=== PATIENT | female | born 1960 | race Caucasian/White ===

== ENCOUNTER 2017-10-18 19:43 | Inpatient (IN) | payer OTHER ==
[~2017-10-18] VITALS: Ht 165.1 cm; Wt 77.6 kg
--- NOTE | 2017-10-18 20:01 | ED DYSPNEA/ASTHMA COMPLAINT ---
History of Present Illness General Chief Complaint: Dyspnea (COPD, CHF, Other) Stated Complaint: BIBA, DIFF BREATHING Source: patient, EMS Exam Limitations: no limitations Vital Signs & Intake/Output Vital Signs & Intake/Output Vital Signs Date Time Temp Pulse Resp B/P B/P Pulse O2 O2 Flow FiO2 Mean Ox Delivery Rate 10/19 0620 50 10/19 0338 50 10/19 0334 65 10/19 0040 65 10/19 0037 75 10/189 72 168/84 10/19 2243 97.1 87 20 196/100 95 Ventilator 10/182 75 10/180 65 102/60 10/180 66 74/56 10/19 2051 70 138/86 10/18 2042 110 144/96 10/18 2038 100 18 144/96 95 Ventilator 75% 10/18 2032 Ventilator 10/18 2020 118 222/146 10/19 2007 122 262/176 10/18 1950 60 ED Intake and Output 10/19 0000 10/18 1200 Intake Total 0 Output Total Balance 0 Intake, Oral 0 Patient 170 lb Weight Weight Reported by Patient Measurement Method Allergies Coded Allergies: amoxicillin (Intermediate, ITCHY, SOB 10/18/17) ciprofloxacin (From CIPRO) (Intermediate, ITCHY, SOB 10/18/17) Penicillins (ITCHY, SOB 10/18/17) Reconcile Medications Ibuprofen (Advil) (Unknown Strength) CAPSULE (Unknown Dose) PO PRN PAIN/ INFLAMMATION (Reported) Triage Nurses Notes Reviewed? yes HPI: Patient presents for evaluation of severe respiratory distress. The patient is unable to provide history given her extreme breathlessness. Past History Travel History Traveled to [place] past 21 day No Medical History Any Pertinent Medical History? see below for history Surgical History Surgical History: unobtainable Family History Hx Contributory? No (UNOBTAINABLE) Review of Systems Review of Systems Constitutional: Reports: no symptoms. EENTM: Reports: no symptoms. Respiratory: Reports: see HPI. Cardiovascular: Reports: no symptoms. GI: Reports: no symptoms. Genitourinary: Reports: no symptoms. Musculoskeletal: Reports: no symptoms. Skin: Reports: no symptoms. Neurological/Psychological: Reports: no symptoms. Hematologic/Endocrine: Reports: no symptoms. Immunologic/Allergic: Reports: no symptoms. All Other Systems: Reviewed and Negative Physical Exam Physical Exam Respiratory: SEE BELOW Comments: Gen.: Well-nourished, well-developed, severe respiratory distress, anxious, speaking in one-word answers Head: Normocephalic, atraumatic. Eyes: Normal inspection bilaterally Ears: Normal inspection bilaterally Nose: Normal inspection Throat/mouth : Moist mucosa Neck: Supple, full range of motion, no goiter Heart: Rapid Regular rate and rhythm, no murmurs rubs or gallops Lungs: Diffuse rales and rhonchi Chest: Nontender Back: Normal range of motion Abdomen: Soft, nontender, nondistended, normal bowel sounds Extremities: Normal range of motion grossly, equal radial pulses, no cyanosis clubbing or edema Neurologic: Cranial nerves grossly intact, speech is clear Skin: warm and dry Psychiatric: Anxious, cooperative, no apparent delusions or hallucinations Core Measures ACS in differential dx? Yes CVA/TIA Diagnosis No Sepsis Present: No Sepsis Focused Exam Completed? No Progress Differential Diagnosis: AMI, bronchitis, CHF, COPD, pneumonia, unstable angina Plan of Care: Orders Procedure Date/time Status Nothing by Mouth 10/19 B Active XRY-PORTABLE CHEST XRAY 10/19 0500 Active THYROID STIMULATING HORMONE 10/19 0500 Active T3 UPTAKE (THYROXINE BIND CAP) 10/19 0500 Active LIPID PANEL 10/19 0500 Active ICU LAB BUNDLE 10/19 0500 Active FREE T4 10/19 0500 Active CORTISOL AM 10/19 0500 Active CBC WITHOUT DIFFERENTIAL 10/19 0500 Complete THYROID ANTIBODY PANEL 10/19 0500 Active TROPONIN LEVEL 10/19 0400 Complete PARTIAL THROMBOPLASTIN TIME 10/19 0400 Complete PROTHROMBIN TIME 10/19 0400 Complete EKG 10/19 0400 Active VENTILATOR PARAMETERS 10/19 0337 Complete VENTILATOR PARAMETERS 10/19 0040 Complete VRE ACTIVE SURVIELLANCE 10/19 0010 Active ACTIVE SURVEILLANCE NARES 10/19 0010 Active Lab Add-on Test 10/19 UNK Active Restraint- Medical 10/19 UNK Complete Restraint- Medical 10/19 UNK Active Hemoccult 10/19 UNK Active FingerStick- Glucose 10/19 UNK Complete FingerStick- Glucose 10/19 UNK Active TROPONIN LEVEL 10/18 2355 Complete EKG 10/18 2355 Active Weight 10/18 224 Active Turn and Reposition 10/18 2244 Active Teach/Educate 10/18 2244 Active Skin Integrity Protocol 10/18 2244 Active Skin/Pressure Ulcer Assess (Sk 10/18 2244 Active Precautions 10/18 2244 Active Pain Treatment and Response 10/18 2244 Active Nutritional Intake, Monitor 10/18 2244 Active Isolation 10/18 2244 Active Patient Care Conference 10/18 2244 Active Activity/Ambulation 10/18 2244 Active Saline Lock 10/18 2217 Active Pathway - chart 10/18 2217 Active House Staff 10/18 2217 Active CULTURE,URINE 10/18 2217 Active BLOOD CULTURE 10/18 2217 Active URINALYSIS 10/18 2217 Complete LACTIC ACID 10/18 2217 Complete Code Status 10/18 2217 Active TYPE & SCREEN (NOT X-MATCH) 10/18 2217 Complete Intake & Output 10/18 2212 Active VENTILATOR PARAMETERS 10/18 2199 Complete VENTILATOR PARAMETERS 10/19 2127 Complete Patient Data 10/18 2109 Active Admit to inpatient 10/18 2104 Active EKG 10/18 2044 Active THYROID STIMULATING HORMONE 10/19 2035 Active PARTIAL THROMBOPLASTIN TIME 10/19 2035 Complete PROTHROMBIN TIME 10/18 203 Complete PHOSPHORUS 10/19 2035 Active GLYCOSYLATED HGB 10/19 2035 Active FREE T4 10/18 203 Active CORTISOL PM 10/19 2035 Active VENTILATOR PARAMETERS 10/19 2031 Complete EKG 10/18 2006 Active ARTERIAL BLOOD GAS (GEN) 10/18 2000 Complete Telemetry/Summer Associate 10/18 2000 Active URINE DRUG SCREEN FOR ER ONLY 10/18 2000 Complete TROPONIN LEVEL 10/18 2000 Active MAGNESIUM 10/18 2000 Active ETHANOL 10/18 2000 Active COMPREHENSIVE METABOLIC PANEL 10/18 2000 Active CBC WITHOUT DIFFERENTIAL 10/18 2000 Complete EKG 10/18 194 Active Lab Add-on Test 10/18 UNK Active VTE Mechanical Prophylaxis 10/18 UNK Active Vital Signs 10/18 UNK Active Intake & Output 10/18 UNK Active ECHOCARDIOGRAM 10/18 UNK Active Current Medications Sig/Ye Start time Last Medication Dose Stop Time Status Admin Fentanyl Citrate 1,000 MCG Q24H 10/19 199 AC 10/19 (Fentanyl Drip) 0259 Dextrose/Water 250 ML (Dextrose 5%) Pantoprazole Sodium 40 MG DAILY 10/19 0200 AC 10/19 (Protonix) 0238 Insulin Human Regular 0 Q6 10/19 0045 AC (NovoLIN R) Sodium Chloride 1,000 ML BOLUS ONE 10/18 2330 CAN (Normal Saline 0.9%) 10/19 0029 Acetaminophen 1,000 MG Q8P PRN 10/18 2214 AC (Ofirmev) Morphine Sulfate 2 MG Q4P PRN 10/18 2214 AC (MORPHINE SULFATE) Heparin Sodium 25,000 UNIT Q24H 10/18 2129 AC 10/18 (Porcine) 2199 (Heparin) Sodium Chloride 500 ML Labetalol HCl 20 MG ONCE ONE 10/18 2029 CAN (Trandate) 10/18 2030 Laboratory Tests 10/19/175: Troponin I 0.46 *H, PT 12.6 H, INR 1.15 10/19/17 0415: Anion Gap 11, Estimated GFR 51 L, Glucose 78, Calcium 8.5, Phosphorus 4.2, Magnesium 1.7, Total Bilirubin 1.0, AST 16, ALT 31, Albumin 3.3 L, Triglycerides 181 H, Cholesterol 249 H, LDL Cholesterol, Calc 174 H, HDL Cholesterol 39 L, Cholesterol/HDL Ratio 6 H, TSH 90.600 H, Free T4 0.92, Thyroxine Binding Indx 38.4, Cortisol AM Sample Pending, APTT 42 H, CBC w Diff MAN DIFF ORDERED, RBC 4.81, MCV 81.8, MCH 26.5 L, MCHC 32.4 L, RDW 17.8 H, MPV 9.4, Gran % 94.0 H, Lymphocytes % 2.9 L, Monocytes % 2.9, Eosinophils % 0.1, Basophils % 0.1, Absolute Granulocytes 12.7 H, Segmented Neutrophils 93 H , Band Neutrophils 3, Absolute Lymphocytes 0.4 L, Lymphocytes 1 L, Monocytes 3 , Absolute Monocytes 0.4, Absolute Eosinophils 0, Absolute Basophils 0, Platelet Estimate ADEQUATE, Polychromasia 1+, Hypochromic-Microcytic 1+, Poikilocytosis 1 +, Ovalocytes 1+, Thyroglobulin Antibody Pending, Thyroid Peroxidase Ab Pending, Fld Total RBCs Counted 100 10/19/17 0035: Troponin I 0.51 *H 10/19/17 0035: Lactic Acid 1.5 10/19/17 0030: Free T4 Cancelled 10/19/17 0000: Urinalysis LIGHT H, Urine Color STRAW, Urine Clarity CLEAR, Urine pH 6.0, Ur Specific [place] 1.010, Urine Protein 30 H, Urine Ketones NEG, Urine Nitrite NEG, Urine Bilirubin NEG, Urine Urobilinogen 0.2, Ur Leukocyte Esterase TRACE H , Ur Microscopic SEDIMENT EXAMINED, Urine RBC 1-3, Urine WBC 5-10 H, Ur Epithelial Cells FEW, Urine Bacteria MANY H, Hyaline Casts RARE H, Urine Mucus FEW, Urine Hemoglobin TRACE-INTACT, Urine Glucose NEG 10/18/170: Urine Opiates Screen < 100, Methadone Screen < 40, Barbiturate Screen < 60, Ur Phencyclidine Scrn < 6.00, Amphetamines Screen < 100, U Benzodiazepines Scrn < 85, Urine Cocaine Screen < 50, Urine Cannabis Screen < 5.00 10/18/17 2100: pH 7.35, pCO2 37, pO2 90, HCO3 20 L, ABG O2 Sat (Measured) 96.0, Carboxyhemoglobin 3.0, O2 Concentration % 90, Respiration Rate 18, O2 Delivery Method VENT, Vent Mode AC, Expiratory Pressure 8, Tidal Volume 550, Pressure Support 0, Phlebotomy Draw Site LEFT BRACHIAL 10/18/172035: Anion Gap 14, Estimated GFR 57 L, BUN/Creatinine Ratio 25.0, Glucose 322 H, Hemoglobin A1c Pending, Calcium 8.7, Phosphorus 6.9 H, Magnesium 1.8, Total Bilirubin 1.0, AST 26, ALT 30, Alkaline Phosphatase 95, Troponin I 0.09, Total Protein 7.3, Albumin 4.1, Globulin 3.2, Albumin/Globulin Ratio 1.3, TSH 348.000 H, Free T4 0.43 L, Cortisol PM Sample 27.2 H, PT 12.0, INR 1.10, APTT 31, CBC w Diff NO MAN DIFF REQ, RBC 5.70 H, MCV 82.4, MCH 26.4 L, MCHC 32.1 L, RDW 17.3 H, MPV 9.3, Gran % 83.7 H, Lymphocytes % 12.2 L, Monocytes % 2.3, Eosinophils % 1.3, Basophils % 0.5, Absolute Granulocytes 9.9 H, Absolute Lymphocytes 1.4, Absolute Monocytes 0.3, Absolute Eosinophils 0.2, Absolute Basophils 0.1, Serum Alcohol < 10.0 Microbiology 10/19 URINE ROUT: Urine Culture - RECD 10/19 0000 UPPER RESP: Surveillance Culture - RECD 10/19 0000 GI: Surveillance Culture - RECD 10/18 2348 BLOOD: Blood Culture - RECD 10/18 2344 BLOOD: Blood Culture - RECD Initial ED EKG: SINUS TACHYCARDIA WITH st SEGMENT ELEVATIONS IN THE ANTEROSEPTAL LEADS AND st SEGMENT DEPRESSIONS INFEROLATERALLY Repeat EKG: unchanged Rhythm Strip: normal sinus rhythm Comments: 10/18/2017 7:57:19 PM given the patient's severe respiratory distress and what appeared to be impending respiratory failure, patient was intubated with a #7 endotracheal tube after ketamine and vecuronium intravenously. Prior to intubation and during verbal consent, patient commented that she has multiple loose teeth (patient has 2 bicuspids that were severely loose and patient is able to wiggle them with her talking). I warned her of the possibility of losing teeth during an emergency intubation. 10/18/2017 8:05:54 PM patient's EKG shows ST segment elevations anteriorly with ST segment depressions inferolaterally. Given the patient's extreme clinical presentation it is difficult to interpret her EKG. She was hypoxic on presentation despite 100% nonrebreather mask. I will repeat an EKG and if her ST segments persist, I will contact interventional cardiology for cardiac catheterization. 10/18/2017 8:13:16 PM repeat EKG reveals essentially the same changes as prior EKG regional program manager cardiology paged for possible cardiac catheterization. 10/18/2017 8:24:40 PM I have sent a picture of this patient's EKG to Dr. Kulkarni and after review Dr. Kulkarni feels that the patient should be stabilized here at [facility]. He suspects that these are ischemic induced changes and would likely resolve as the patient stabilizes. 10/18/2017 8:57:40 PM repeat EKG shows improvement in the patient's ST segment elevations anteriorly and improvement of the persistence of ST segment depressions in the lateral and inferior leads. 10/18/2017 9:28:22 PM I have updated this patient's on her emergency department course. According to this patient's nurse her stool is heme negative. Departure Departure Disposition: STILL A PATIENT Condition: Stable Clinical Impression Primary Impression: Pulmonary edema Secondary Impressions: Acute respiratory failure, Cardiac ischemia Departure Forms: Customer Survey General Discharge Information Admission Note Spoke With: Shad YIP PHD,Berry Miller Documentation of Exam: Documentation of any treatments & extenuating circumstances including Concerns Regarding Discharge (functional status, medication knowledge or non-compliance, living conditions, etc.) that warrant an admission rather than observation: Patient presented in severe respiratory distress with impending respiratory failure. The patient required intubation and critical care to stabilize vital signs and overall clinical condition. She was placed on a ventilator and given aspirin, beta karen, nitroglycerin paste in order to stabilize vital signs. The patient continues to require intensive unit level care and cannot be treated as an outpatient. Her prognosis is guarded at this time. She will require a multiple day hospitalization. Critical Care Note Critical Care Note Critical Care Time: 30-74 min
[2017-10-18 20:54] LABS: ABSOLUTE BASOPHIL COUNT 0.1 /CUMM (0.0-0.2); ABSOLUTE EOSINOPHIL COUNT 0.2 /CUMM (0.0-0.7); ABSOLUTE GRANULOCYTE CT 9.9 /CUMM (1.4-6.5); ABSOLUTE LYMPH COUNT 1.4 /CUMM (1.2-3.4); ABSOLUTE MONOCYTE COUNT 0.3 /CUMM (0.10-0.60); BASOPHIL % 0.5 % (0.0-2.0); EOSINOPHIL % 1.3 % (0-5); GRANULOCYTE % 83.7 % (42.2-75.2); MEAN CORPUSCULAR HGB 26.4 PG (27.0-31.0); MEAN CORPUSCULAR HGB CONC 32.1 G/DL (33.0-37.0); MEAN CORPUSCULAR VOLUME 82.4 FL (81.0-99.0); MEAN PLATELET VOLUME 9.3 FL (7.4-10.4); PLATELET COUNT 329 /CUMM (130-400); RBC DISTRIBUTION WIDTH 17.3 % (11.5-14.5); WHITE BLOOD CELL COUNT 11.8 /CUMM (4.8-10.8)
--- NOTE | 2017-10-18 21:03 | RADIOLOGY REPORT ---
XR PORTABLE CHEST CLINICAL INFORMATION: Dyspnea status post intubation. CHF. COMPARISON: None TECHNIQUE: Portable frontal view of the chest was obtained. FINDINGS: Endotracheal tube tip is located 4.6 cm above the enda. Enteric tube courses below the diaphragm beyond the limits of this study. There is central vascular congestion with diffuse bilateral pulmonary airspace opacities and background interstitial opacities suggesting moderate to severe alveolar/interstitial pulmonary edema. Nondiagnostic assessment for pleural effusions given that the lung bases are not included on this exam. There is dense retrocardiac opacity. No pneumothorax. Cardiac silhouette is enlarged. No acute osseous findings. IMPRESSION: Endotracheal tube tip is located 4.6 cm above the edna. Enteric tube courses below the diaphragm beyond the limits of this study. Imaging findings suggest moderate to severe interstitial/alveolar pulmonary edema. Nondiagnostic assessment for pleural effusions with the lung bases not entirely included on this exam. Cardiomegaly.
[2017-10-18] MEDS ORDERED: ADVIL200 M1 PO (21:15)
--- NOTE | 2017-10-18 21:26 | History & Physical ---
General Information and HPI MD Statement: I have seen and personally examined CARON NDIAYE and documented this H&P. The patient is a 57 year old F who presented with a patient stated chief complaint of [sob]. Source of Information: family, EMS Exam Limitations: unable to give history, not alert/orientated, INTUBATED History of Present Illness: This is a 57-year-old female with a medical history of hypertension not on any prescribed medication, chronic active smoker. Presented to the emergency department via EMS with a chief complain off difficulty breathing. Most of the history was obtained from her over the phone. her stated that he received a call from his son when he was driving back from work telling him that his mother complaining cough shortness of breath, he stated that 2 minutes after that his son called him again and ask him to come faster as that what his mother requested from him due to the difficulty of breathing. The stated that when he arrived home he found his sitting on the chair in the living room and she try to catch up her breathing and she told him to contact EMS due to the severity of the symptom, after that he walk her outside as she stated that the cord fresh air help her little bit as also she felt warm. When the EMS arrived the stated that they have difficulty checking her blood pressure and when the majority first one was more than 220/100. The stated that his was complaining of sinus congestion and cough for the past couple days and she thought that she is catching up a cold. Also he report that she is taking ibuprofen 800 mg every 6 hour for a while to help her with her muscle ache and back, shoulder and neck pain. The stated that last time she was admitted to hospital was 13 YEARS ago when she underwent hysterectomy. The reported that she hadn't seen any physician for the past 5-6 years. And she was diagnosed with hypertension before that but she declined taking any medication. She is active smoker she smoke 1 &1/2 pack per day for more than 40 years. Also, he reported that she snore at night, taking multiple not during the daytime, always complaining feeling tired and weak and fatigue for the past 5-6 year. According to him she denied any chest pain, abdominal pain, hematuria, dysuria, nausea, vomiting, diarrhea, constipation, headaches, wheezing. She has a family history of her father had cardiac bypass at the age of 60 year. Also her mother had diabetes, hyperlipidemia she 36 years ago. Upon arrival to the emergency department patient was in respiratory distress and her oxygen saturation was in the low mid 80s, she was acute cardiac, tachypneic and hypertensive despite 2 Nitropaste applied via EMS also she was tachypneic due to concerning off dying. Due to that the patient was intubated in the emergency department, she received the following medication 1 mg IV Ativan, per rectum 300 mg aspirin, 40 mg of IV Lasix, 2 g of nitroglycerin-bid, 5 mg of IV metoprolol. Initial EKG shows ST segment elevations anteriorly with ST segment depressions inferolaterally. Her blood pressure dropped from 262/176 to 144/96 after these Meds. Allergies/Medications Allergies: Coded Allergies: amoxicillin (Intermediate, ITCHY, SOB 10/18/17) ciprofloxacin (From CIPRO) (Intermediate, ITCHY, SOB 10/18/17) Penicillins (ITCHY, SOB 10/18/17) Home Med list Ibuprofen (Advil) (Unknown Strength) CAPSULE (Unknown Dose) PO PRN PAIN/ INFLAMMATION (Reported) Past History Travel History Traveled to [place] past 21 day No Medical History Cardiovascular: hypertension Surgical History Surgical History: hysterectomy Past Family/Social History Family History Relations & Conditions if any MOTHER (Diabetes, hyperlipidemia,). . FATHER (CABG at age of 60 year). Psychosocial History ETOH Use: 5 Functional Ability ADLs Independent: dressing, eating, toileting, bathing. Ambulation: independent IADLs Independent: shopping, housework, finances, food prep, telephone, transportation , medication admin. Review of Systems Review of Systems Constitutional: Reports: see HPI. Cardiovascular: Reports: see HPI. Respiratory: Reports: see HPI. GI: Reports: see HPI. Genitourinary: Reports: see HPI. Exam & Diagnostic Data Last 24 Hrs of Vital Signs/I&O Vital Signs Date Time Temp Pulse Resp B/P B/P Pulse O2 O2 Flow FiO2 Mean Ox Delivery Rate 10/19 2139 65 102/60 10/18 2129 66 74/56 10/19 2051 70 138/86 10/18 2042 110 144/96 10/18 2038 100 18 144/96 95 Ventilator 75% 10/18 2032 Ventilator 10/18 2020 118 222/146 10/19 2007 122 262/176 03/15 1950 60 Physical Exam General Appearance intubated, sedated HEENT PERRLA, EOMI Neck Supple Cardiovascular Regular Rate, Normal S1, Normal S2 Lungs Normal Air Movement, decrease air entry bibasilar, diffuse crackles Abdomen Normal Bowel Sounds, Soft, No Tenderness Extremities Normal Pulses, trace edema Last 24 Hrs of Labs/Brian: Laboratory Tests 10/18/170: Urine Opiates Screen < 100, Methadone Screen < 40, Barbiturate Screen < 60, Ur Phencyclidine Scrn < 6.00, Amphetamines Screen < 100, U Benzodiazepines Scrn < 85, Urine Cocaine Screen < 50, Urine Cannabis Screen < 5.00 10/18/172099: pH 7.35, pCO2 37, pO2 90, HCO3 20 L, ABG O2 Sat (Measured) 96.0, Carboxyhemoglobin 3.0, O2 Concentration % 90, Respiration Rate 18, O2 Delivery Method VENT, Vent Mode AC, Expiratory Pressure 8, Tidal Volume 550, Pressure Support 0, Phlebotomy Draw Site LEFT BRACHIAL 10/18/172035: Anion Gap 14, Estimated GFR 57 L, BUN/Creatinine Ratio 25.0, Glucose 322 H, Hemoglobin A1c Pending, Calcium 8.7, Phosphorus 6.9 H, Magnesium 1.8, Total Bilirubin 1.0, AST 26, ALT 30, Alkaline Phosphatase 95, Troponin I 0.09, Total Protein 7.3, Albumin 4.1, Globulin 3.2, Albumin/Globulin Ratio 1.3, TSH Pending, Free T4 Pending, PT Pending, INR Pending, APTT Pending, CBC w Diff NO MAN DIFF REQ, RBC 5.70 H, MCV 82.4, MCH 26.4 L, MCHC 32.1 L, RDW 17.3 H, MPV 9.3, Gran % 83.7 H, Lymphocytes % 12.2 L, Monocytes % 2.3, Eosinophils % 1.3, Basophils % 0.5, Absolute Granulocytes 9.9 H, Absolute Lymphocytes 1.4, Absolute Monocytes 0.3, Absolute Eosinophils 0.2, Absolute Basophils 0.1, Serum Alcohol < 10.0 Microbiology 10/18 2217 URINE ROUT: Urine Culture - ORD 10/18 2217 BLOOD: Blood Culture - ORD 10/18 2217 BLOOD: Blood Culture - ORD Diagnostic Data CXR Results XR PORTABLE CHEST CLINICAL INFORMATION: Dyspnea status post intubation. CHF. COMPARISON: None TECHNIQUE: Portable frontal view of the chest was obtained. FINDINGS: Endotracheal tube tip is located 4.6 cm above the edna. Enteric tube courses below the diaphragm beyond the limits of this study. There is central vascular congestion with diffuse bilateral pulmonary airspace opacities and background interstitial opacities suggesting moderate to severe alveolar/interstitial pulmonary edema. Nondiagnostic assessment for pleural effusions given that the lung bases are not included on this exam. There is dense retrocardiac opacity. No pneumothorax. Cardiac silhouette is enlarged. No acute osseous findings. IMPRESSION: Endotracheal tube tip is located 4.6 cm above the edna. Enteric tube courses below the diaphragm beyond the limits of this study. Imaging findings suggest moderate to severe interstitial/alveolar pulmonary edema. Nondiagnostic assessment for pleural effusions with the lung bases not entirely included on this exam. Cardiomegaly. Assessment/Plan Assessment: This is a 57-year-old female with a medical history of hypertension not on any prescribed medication, chronic active smoker. Presented to the emergency department via EMS with a chief complain off difficulty breathing. Assessment: -ST segment elevations anteriorly with ST depressions inferolaterally: That is most likely due to underlying myocardial ischemia type II versus type I despite the first troponin remained negative which may be up in the next few hours. giving the patient prolonged history of untreated hypertension, active smoking, family history of CABG and not to follow up with any physician for the past 5-6 years. -Acute hypoxic respiratory failure due to Pulmonary edema: That could be most likely due to the underlying acute myocardial ischemia giving the involvement of anteriorly and inferolaterally leads as the p.t was doing well for the past days according to her . Patient currently intubated. -Hypertension emergency: Given the patient not on prescribed medication, long- standing hypertension with active smoking. She become hypotensive and she required pressor. -Hypothyroidism: Her TSH came back more than 300 the TSH was added to the 1st ED labs. Patient become hypotensive around 11:15 pm we try to notify Dr. Kulkarni, he contact us back around 11: 40 pm weeks pain and discuss with him's the p.t current condition that she is hypotensive in the 60s systolic, with heart rate in the 60, and that we started the first normal saline bolus 1 L, he advised to start the patient on Kehinde pressor and attempt to decrease IV fluid giving the patient underlying flash pulmonary edema Contact Dr. aguirre around 12:36 am regarding the TSH level and due to concern of myxedema coma?! and she recommended to start the patient on stress dose of hydrocortisone 100 mg IV after that we'll give her 100 MCG of levothyroxine also will check thyroid antibody level, cortisol level and recheck TSH and free T4, T3 in a.m. and she will come to see the patient in a.m. Problem list: -ST segment elevation/depression ??! -Severe newly diagnosed hypothyroidism -Hypertensive emergency that become hypotensive. -Acute hypoxic respiratory failure due to Acute Flash pulmonary edema -Leukocytosis Plan: -Admit patient to critical care unit -Vitals every shift, continuous blood pressure monitoring -Continue IV heparin drip -We will start the patient on Neosynephrine to keep SBP>90 mmHg -We obtain consent from the over the phone we will place right central line. -Continue trending troponin and EKG every 4-6 hours -Echocardiogram, check lipid panel -100 mg IV hydrocortisone after that start the patient on 100 MCG levothyroxine once. -Check TSH, free T4, T3, thyroid antibody, cortisol level. -IV Protonix 40 mg daily -IV fentanyl for sedation -check hemoglobin A1c -ABG and chest x-ray in a.m. -Type and crossmatch, guaiac when necessary -Check CBC in the ICU bundle in a.m. -Keep p.t. NPO. -Critical care consultation -Pain pathways -DVT ppt: IV heparin drip -Full Code. As Ranked By This Provider Problem List: 1. Cardiac ischemia 2. Pulmonary edema 3. Acute respiratory failure Core Measures/Misc (04/22) Acute Coronary Syndrome ACS Diagnosis: Yes Congestive Heart Failure Congestive Heart Failure Diagnosis No Cerebrovascular Accident CVA/TIA Diagnosis: No VTE (View Protocol) VTE Risk Factors Age>40 No Mechanical VTE Prophylaxis d/t N/A MechProphylax Ordered No VTE Pharm Prophylaxis d/t NA PharmProphylax ordered Sepsis (View protocol) Sepsis Present: No
[2017-10-18 23:00] VITALS: BP 60/40
[2017-10-18 23:00] LABS: PTT 31 SEC (25-37)
--- NOTE | 2017-10-19 00:41 | Cons- Cardiology ---
General Information and HPI Consulting Request Date of Consult: 10/19/17 Requested By: Shad YIP PHD,Berry Miller History of Present Illness: This patient is a 57 year old female who carries a history of hypertension and tobacco abuse. She was brought to the ER emergently for evaluation of shortness of breath. In the ER she was found to be in respiratory distress with pulmonary edema and was intubated. She was hypertensive on initial presentation. According to the patient's , she was complaining of a cought and sinus congestion for a couple days and she thought that she was catching a cold. The patient is taking ibuprofen 800mg QID for muscle achiness in her back, shoulder and neck. The patient denies any chest pain but does admit to shortness of breath. This patient has a history of hypertension but has been non-compliant taking her medications for this condition. She is active smoker consumes 1 1/2 pack per day for more than 40 years. The patient snores at night and tends to be tired during the day. According to the patient's , the patient denies any chest pain, abdominal pain, hematuria, dysuria, nausea, vomiting, diarrhea, constipation, headaches, wheezing. The patient's initial ECG shows ischemic ST segment depressions with non-specific ST elevations in leads V1 and V2. In the ER the patient had labs which disclosed a very high TSH of 348 with low free T4 suggestive of Myxedema. Allergies/Medications Allergies: Coded Allergies: amoxicillin (Intermediate, ITCHY, SOB 10/18/17) ciprofloxacin (From CIPRO) (Intermediate, ITCHY, SOB 10/18/17) Penicillins (ITCHY, SOB 10/18/17) Home Med List: Ibuprofen (Advil) (Unknown Strength) CAPSULE (Unknown Dose) PO PRN PAIN/ INFLAMMATION (Reported) Review of Systems Review of Systems: A review of systems is unremarkable. Past History Travel History Traveled to [place] past 21 day No Medical History Cardiovascular: hypertension Surgical History Surgical History: hysterectomy Family History Relations & Conditions If Any: MOTHER (Diabetes, hyperlipidemia,). . FATHER (CABG at age of 60 year). Psychosocial History Smoking Status: Current Everyday Smoker ETOH Use: 5 Functional Ability ADLs Independent: dressing, eating, toileting, bathing. Ambulation: independent IADLs Independent: shopping, housework, finances, food prep, telephone, transportation , medication admin. Exam & Diagnostic Data Vital Signs and I&O Vital Signs Date Time Temp Pulse Resp B/P B/P Pulse O2 O2 Flow FiO2 Mean Ox Delivery Rate 10/18 2248 72 168/84 10/19 2243 97.1 87 20 196/100 95 Ventilator 10/18 2241 75 10/19 2139 65 102/60 10/18 2129 66 74/56 10/19 2051 70 138/86 10/18 2042 110 144/96 10/18 2038 100 18 144/96 95 Ventilator 75% 10/18 2032 Ventilator 10/18 2020 118 222/146 10/19 2007 122 262/176 10/18 1950 60 Intake & Output 10/19 0810/19 0000 10/18 1600 10/18 0810/18 0000 10/17 1600 Intake Total 0 Output Total Balance 0 Intake, Oral 0 Patient 170 lb Weight Weight Reported by Patient Measurement Method Physical Exam: General: WD/overweight female. Intubated. Awake and responsive. HEENT: NC/AT, PERRL, EOMI Neck: +ve JVD, no carotid bruits Heart: RRR w/o mumrur Lungs: no crackles anteriorly bilaterally Abdomen: soft, obese, NT, +ve bowel sounds Extrenities: no edema Assessment/Plan Assessment/Plan * This patient has ischemic ST depressions in the setting of respiratory distress with pulmonary edema. I do not think that she has an acute ND as the primary event although she certainly has decompensated CHF. We will follow her cardiac enzymes x 3 sets or until they peak since it is possible that her supply demand mismatch may make her rule in for an ND. I suspect that her severe hypothyroidism, as manifested by her very high TSH and low T4, have contributed to her pulmonary edema. Hypothyroidism will lead to diastolic hypertension, decreased myocardial contractility and bradycardia. We will treat with stress dose steroids and begin levothyroxine 100mcg IV and will obtain an endocrinology consult. * Diurese as tolerated by blood pressure. * Aspirin and IV heparin for now. No beta blockers due to hypotension and bradycardia. Consult Acknowledgment - Thank you for your consult request.
--- NOTE | 2017-10-19 01:10 | Procedure ---
Minor Surgical Procedure Note Date of Procedure: 10/19/17 Procedure Note: Ultrasound guided left axillary vein central line [facility] under local [facility]. cxr pending.
--- NOTE | 2017-10-19 02:31 | RADIOLOGY REPORT ---
EXAMINATION: XR PORTABLE CHEST CLINICAL INFORMATION: Central line placement COMPARISON: 10/18/2017 TECHNIQUE: Portable frontal view of the chest was obtained. FINDINGS: Endotracheal tube tip lies approximately 6.7 cm above the edna. Left subclavian central line tip lies at the level of the upper to mid SVC. Enteric tube courses into the stomach. Lung volumes are symmetric. There is symmetric moderate perihilar haziness bilaterally as well as dense retrocardiac opacification. Appearance may be slightly improved from prior. No pneumothorax is seen, though the lung apices are not fully included on this exam. Small left pleural effusion is suspected. The cardiomediastinal silhouette is stable. No acute osseous findings are seen. IMPRESSION: 1. Left subclavian central line tip at the level of the upper to mid SVC. 2. No appreciable pneumothorax, though the lung apices are not fully included on this exam. 3. Endotracheal tube tip approximately 6.7 cm above the edna. 4. Moderate perihilar hazy opacification bilaterally, which may be mildly improved from prior. 5. Redemonstrated dense retrocardiac opacification. Small left pleural effusion.
[2017-10-19 05:42] LABS: PT 12.6 SEC (9.4-12.5)
[2017-10-19 05:43] LABS: ABSOLUTE BASOPHIL COUNT 0 /CUMM (0.0-0.2); ABSOLUTE EOSINOPHIL COUNT 0 /CUMM (0.0-0.7); ABSOLUTE GRANULOCYTE CT 12.7 /CUMM (1.4-6.5); ABSOLUTE LYMPH COUNT 0.4 /CUMM (1.2-3.4); ABSOLUTE MONOCYTE COUNT 0.4 /CUMM (0.10-0.60); BASOPHIL % 0.1 % (0.0-2.0); EOSINOPHIL % 0.1 % (0-5); MEAN CORPUSCULAR HGB 26.5 PG (27.0-31.0); MEAN CORPUSCULAR HGB CONC 32.4 G/DL (33.0-37.0); MEAN CORPUSCULAR VOLUME 81.8 FL (81.0-99.0); MEAN PLATELET VOLUME 9.4 FL (7.4-10.4); PLATELET COUNT 259 /CUMM (130-400); RBC DISTRIBUTION WIDTH 17.8 % (11.5-14.5); RED BLOOD CELL CT 4.81 /CUMM (4.20-5.40); WHITE BLOOD CELL COUNT 13.5 /CUMM (4.8-10.8)
[2017-10-19 05:45] LABS: PTT 42 SEC (25-37)
[2017-10-19 05:57] LABS: HEMATOCRIT 39.4 % (37-47)
--- NOTE | 2017-10-19 07:19 | RADIOLOGY REPORT ---
EXAMINATION: XR PORTABLE CHEST CLINICAL INFORMATION: Intubated. Shortness of breath. COMPARISON: Chest x-ray earlier today at 1:44 AM TECHNIQUE: Portable frontal view of the chest was obtained. FINDINGS: Stable cardiac silhouette. Endotracheal tube is similar in position terminating approximately 6 cm above the level of the edna. Enteric tube terminates well below the level of the diaphragm. Left-sided venous catheter tip is unchanged terminating within the SVC. Again demonstrated are diffuse symmetric hazy opacities of both lungs. Asymmetrically increased opacity of the left lung base is again noted and appears slightly more prominent on today's examination. Blunting of the left costophrenic angle suggests a small pleural effusion. IMPRESSION: Stable bilateral hazy opacities with slightly more prominent left basilar opacity. Small left pleural effusion is again noted.
--- NOTE | 2017-10-19 07:27 | Cons- CRCU ---
Cam Parrish MD 10/19/17 0726: General Information and HPI Consulting Request Date of Consult: 10/19/17 Requested By: Dr. Kulkarni Source of Information: patient, old records History of Present Illness: Patient is 57-year-old female with past medical history of hypertension, antiphospholipid antibody syndrome, arthritis, questionable history of hypothyroidism in the past, active smoker, arthritis presenting this admission with chief complaint of dyspnea. Patient presented to the ED the day before due to increasing difficulty breathing over the course of the day. Patient's blood pressure in the field was 220/100. When patient arrived to the ED she was in acute respiratory distress and was intubated. The patient was found to have ST segment elevations in the anterior leads with reciprocal depressions in the inferior lateral leads with troponins that peaked to 0.51. Patient was seen by by cardiology and was started on aspirin and IV heparin drip. Patient in the ED also received 1 mg IV Ativan, 40 mg of IV Lasix, nitroglycerin, 5 mg IV metoprolol 1. Patient's blood pressure decreased from 262/176 to 144/96. Patient's blood pressure continued to decline and she was started on IV Kehinde-Synephrine. On admission: Patient labs were significant for WBC of 11.8 with 83.7%, H&H 15.1 and 47.0, platelets 329. Chemistry significant for BUN of 26 and creatinine of 1.1, initial troponin 0.09 which peaked to 0.51, albumin of 3.3, elevated lipids with LDL of 174 and initial TSH of 348 with free T4 of 0.43. Patient was given IV levothyroxine 100 g with repeat TSH of 90.6 and free T4 of 0.92. Due to patient's hypotension she was given stress dose Solu-Cortef 100 mg IV. Patient' s a.m. cortisol level was 87.9. Patient was seen this morning and reported that she has been feeling ill for the past few weeks. Patient reports she has been having a cough and shortness of breath for 1-2 weeks. Cough has been productive with clear phlegm. Patient reports increased fatigue and dizziness. Patient denies any chest pain, palpitations, fever/chills. Reports hematuria. Denies any dysuria, frequency, urgency. Denies constipation, diarrhea, hematemesis, hematochezia, melena. Patient states that she has been feeling cold and has noticed increased hair loss recently. Patient denies any skin changes or lower extremity edema. Patient reports that she has arthritic pain for which she has been taking ibuprofen twice a day. Patient states that she has not seen of physician in the past 5 years. States her previous PCP was Dr. Arun Marsh who has moved to [place]. Patient also reports seeing a physician in [place]. Patient reports that she has a history of anti-phospholipid syndrome for which she was previously taking aspirin however stopped due to gum bleeding and epistaxis. Patient also reports a remote history of thyroid dysfunction. States she was on medication but is unsure if it was for hypothyroidism. Patient aslo has a history of hypertension for which she is not taking medication. Patient reports having severe psoriasis which is currently in remission for many years not on any immunosuppressants. Patient reports haivng inflammatory arthritis for which she takes ibuprofen. Patient states aside from ibuprofen she has not been taking any other medications recently. Past Surgeries: multiple miscarriages, , total radical hysterectomy with bilateral salpingoopherectomy due menorrhagia and fibroids. Multiple biopsies showing endometriosis. Medications: Ibuprofen Social History: Lives with and son. Smokes approximatley 1 ppd for 40+ years. Allergies/Medications Allergies: Coded Allergies: amoxicillin (Intermediate, ITCHY, SOB 10/18/17) ciprofloxacin (From CIPRO) (Intermediate, ITCHY, SOB 10/18/17) Penicillins (ITCHY, SOB 10/18/17) Home Med List: Ibuprofen (Advil) (Unknown Strength) CAPSULE (Unknown Dose) PO PRN PAIN/ INFLAMMATION (Reported) Review of Systems Review of Systems Constitutional: Reports: malaise, weakness. EENTM: Reports: nasal congestion, throat pain. Cardiovascular: Reports: no symptoms. Respiratory: Reports: see HPI. GI: Reports: no symptoms. Genitourinary: Reports: see HPI. Musculoskeletal: Reports: see HPI. Skin: Reports: no symptoms. Neurological/Psychological: Reports: weakness. Hematologic/Endocrine: Reports: see HPI. Immunologic/Allergic: Reports: no symptoms. Past History Travel History Traveled to [place] past 21 day No Medical History Cardiovascular: hypertension Surgical History Surgical History: unobtainable Family History Relations & Conditions If Any: MOTHER (Diabetes, hyperlipidemia,). . FATHER (CABG at age of 60 year). Psychosocial History Smoking Status: Current Everyday Smoker ETOH Use: 5 Functional Ability ADLs Independent: dressing, eating, toileting, bathing. Ambulation: independent IADLs Independent: shopping, housework, finances, food prep, telephone, transportation , medication admin. Exam & Diagnostic Data Last 24 Hrs of Vital Signs/I&O Vital Signs Date Time Temp Pulse Resp B/P B/P Pulse O2 O2 Flow FiO2 Mean Ox Delivery Rate 10/19 1606 98.1 10/19 1600 35 10/19 1529 99 Ventilator 10/19 1529 60 18 100/71 97 Ventilator 10/19 1406 40 10/19 1200 99 Ventilator 40% 10/19 1200 97.3 60 18 102/70 99 Ventilator 40% 10/19 1113 40 10/19 0840 45 10/19 0800 99 Ventilator 50% 10/19 0800 98.2 65 18 94/70 99 Ventilator 50% 10/19 0620 50 10/19 0400 95 Ventilator 50% 10/19 0338 50 10/19 0334 65 10/19 0040 65 10/19 0037 75 10/19 0000 99 Ventilator 65% 10/18 2300 97.7 62 18 60/40 96 Ventilator 75% 10/18 2300 95 Ventilator 75% 10/18 2249 72 168/84 10/18 2244 97.1 87 20 196/100 95 Ventilator 10/18 2242 75 10/18 2140 65 102/60 10/18 2130 66 74/56 10/18 2052 70 138/86 10/183 110 144/96 10/189 100 18 144/96 95 Ventilator 75% 10/18 2032 Ventilator 10/18 2020 118 222/146 10/18 2008 122 262/176 10/18 1950 60 Intake & Output 10/19 1600 16 0800 10/19 0000 Intake Total 0 1022 0 Output Total 50 965 Balance -50 57 0 Intake, IV 1022 Intake, Oral 0 0 Number 0 0 Bowel Movements Output, Urine 50 965 Patient 156 lb 157 lb Weight Weight Bed scale Measurement Method Physical Exam General Appearance: well developed/nourished, no apparent distress, awake, comfortable, intubated Head: atraumatic, normal appearance Eyes: Bilateral: normal appearance, PERRL, EOMI. 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 Cranial Nerves: normal hearing, normal speech, PERRL Skin: intact, normal color, warm/dry Last 48 Hrs of Labs/Brian: Laboratory Tests 10/19/17 1300: APTT 31 10/19/17 0415: Troponin I 0.46 *H, PT 12.6 H, INR 1.15 10/19/17 0415: Anion Gap 11, Estimated GFR 51 L, Glucose 78, Calcium 8.5, Phosphorus 4.2, Magnesium 1.7, Total Bilirubin 1.0, AST 16, ALT 31, Oxx-I-Ebdzhygrkxu Pept Pending, Albumin 3.3 L, Triglycerides 181 H, Cholesterol 249 H, LDL Cholesterol, Calc 174 H, HDL Cholesterol 39 L, Cholesterol/HDL Ratio 6 H, TSH 90.600 H, Free T4 0.92, Thyroxine Binding Indx 38.4, Cortisol AM Sample 87.9 H , APTT 42 H, CBC w Diff MAN DIFF ORDERED, RBC 4.81, MCV 81.8, MCH 26.5 L, MCHC 32.4 L, RDW 17.8 H, MPV 9.4, Gran % 94.0 H, Lymphocytes % 2.9 L, Monocytes % 2.9, Eosinophils % 0.1, Basophils % 0.1, Absolute Granulocytes 12.7 H, Segmented Neutrophils 93 H, Band Neutrophils 3, Absolute Lymphocytes 0.4 L, Lymphocytes 1 L, Monocytes 3, Absolute Monocytes 0.4, Absolute Eosinophils 0, Absolute Basophils 0, Platelet Estimate ADEQUATE, Polychromasia 1+, Hypochromic- Microcytic 1+, Poikilocytosis 1+, Ovalocytes 1+, Thyroglobulin Antibody 44, Thyroid Peroxidase Ab > 1300 H, Fld Total RBCs Counted 100 10/19/17 0035: Troponin I 0.51 *H 10/19/17 0035: Lactic Acid 1.5 10/19/17 0030: Free T4 Cancelled 10/19/17 0000: Urinalysis LIGHT H, Urine Color STRAW, Urine Clarity CLEAR, Urine pH 6.0, Ur Specific [place] 1.010, Urine Protein 30 H, Urine Ketones NEG, Urine Nitrite NEG, Urine Bilirubin NEG, Urine Urobilinogen 0.2, Ur Leukocyte Esterase TRACE H , Ur Microscopic SEDIMENT EXAMINED, Urine RBC 1-3, Urine WBC 5-10 H, Ur Epithelial Cells FEW, Urine Bacteria MANY H, Hyaline Casts RARE H, Urine Mucus FEW, Urine Hemoglobin TRACE-INTACT, Urine Glucose NEG 10/18/170: Urine Opiates Screen < 100, Methadone Screen < 40, Barbiturate Screen < 60, Ur Phencyclidine Scrn < 6.00, Amphetamines Screen < 100, U Benzodiazepines Scrn < 85, Urine Cocaine Screen < 50, Urine Cannabis Screen < 5.00 10/18/17 2100: pH 7.35, pCO2 37, pO2 90, HCO3 20 L, ABG O2 Sat (Measured) 96.0, Carboxyhemoglobin 3.0, O2 Concentration % 90, Respiration Rate 18, O2 Delivery Method VENT, Vent Mode AC, Expiratory Pressure 8, Tidal Volume 550, Pressure Support 0, Phlebotomy Draw Site LEFT BRACHIAL 10/18/172035: Anion Gap 14, Estimated GFR 57 L, BUN/Creatinine Ratio 25.0, Glucose 322 H, Hemoglobin A1c 5.8, Calcium 8.7, Phosphorus 6.9 H, Magnesium 1.8, Total Bilirubin 1.0, AST 26, ALT 30, Alkaline Phosphatase 95, Troponin I 0.09, Pro-B- Natriuretic Pept Pending, Total Protein 7.3, Albumin 4.1, Globulin 3.2, Albumin/ Globulin Ratio 1.3, TSH 348.000 H, Free T4 0.43 L, Cortisol PM Sample 27.2 H, PT 12.0, INR 1.10, APTT 31, CBC w Diff NO MAN DIFF REQ, RBC 5.70 H, MCV 82.4, MCH 26.4 L, MCHC 32.1 L, RDW 17.3 H, MPV 9.3, Gran % 83.7 H, Lymphocytes % 12.2 L, Monocytes % 2.3, Eosinophils % 1.3, Basophils % 0.5, Absolute Granulocytes 9.9 H, Absolute Lymphocytes 1.4, Absolute Monocytes 0.3, Absolute Eosinophils 0.2, Absolute Basophils 0.1, Serum Alcohol < 10.0 Assessment/Plan CRCU Impression/Plan: Patient is a 57-year-old female with past medical history significant for hypertension not currently taking any medication, antiphospholipid antibody syndrome (not on anticoagulation or aspirin due to reported bleeding),psoriasis in remission (not on any immunosuppressant), inflammatory arthritis taking ibuprofen only presenting this admission with acute respiratory distress. Patient required intubation on arrival due to impending respiratory failure. Initially came in with acute hypertensive emergency with bp of 276/176. Patient was diuresed, received IV lopressor and nitroglycerin with an acute drop in her blood pressure. After which patient continued to have labile blood pressure with severe hypotension requiring IV pressor support. A central line was placed and patient was started on IV Kehinde-Synephrine. Patient had elevated ST segments in leads V1, V2, V3 with recepirocal depression in inferior and lateral leads. Repeat EKG showed improvement. Patient's troponin peaked to 0.51 and decreased. Patient was seen by cardiology and started on IV heparin drip along with aspirin. Patient denies chest pain at this time. Patient's chest xray was concerning for pulmonary edema likely flash pulmonary edema secondary to hypertensive emergency. This may also be secondary to decompensated congestive heart failure as well with a pro-BNP of 16,000. Patient on exam had bilateral crackes however no JVD or lower extremity edema was appreciated. Patient's pulmonary edema may also be attributed to severe hypothyroidism. Patient received IV lasix in the ED. Further diureses was held due to hypotension. Patient had elevated thyroid stimulating hormone of >300. Patient reports a remote history of thyroid dysfunction in the past. It is unclear if she was previously diagnosed with hypothyroidism in the past. Patient's thyroid antibodies were positive. Likely patient has hashimotos. Patient is symptomatic with fatigue, weakness, cold intolerance, hair loss and possible diastolic dysfunction. ECHO is still pending to confirm this. The patient is being treated and evaluated for following conditions: Respiratory #Acute hypoxemic respiratory failure due to acute pulmonary edema - continue patient on ventilation with volume assisted control today - continue to monitor I/O - continue to monitor pulse ox - respiratory therapy is onboard Infection #Leukocytosis Likely reactive. Patient remains afebrile without complaints. - will watch off antibiotics - follow up blood and urine culture - continue to monitor vitals - repeat CBC in am Cardiology #Congestive heart failure - continue to monitor stricts I/O - lasix held in setting of hypotension - cardiology is on board - ECHO read is pending # IN type 1 vs type II Troponin peaked at 0.51. EKG showed ST elevations which have showed improvement. Per cardiology this is likely secondary to demand ischemia. - continue IV heparin - continue aspirin daily - continue oxygen - intubated currently - continue morphine as needed #Hypertensive emergency Patient is now hypotensive to normotensive. - Continue to monitor BP - Continue to monitor creatinine - Continue telemetry monitoring - No antihypertensives at this time as patient is hypotensive requiring pressor support Hematology #Anti-phospholipid antibody syndrome Patient has a history of miscarriages. Patient was on aspirin years prior which she stopped due to epistaxis and gum bleeding. Patient is at high risk of clotting. - Continue IV heparin and aspirin Metabolic #Hypothyroidism - received IV synthroid 100mcg - repeat TSH and T4 Alimentary - NPO - D5 1/2 NS @ 50cc/hr 1L only Nephrology #Elevated creatinine - continue to monitor daily - continue to monitor I/O - peres is placed DVT prophylaxis On IV heparin Code Status Full code Consult Acknowledgment - Thank you for your consult request. Maksim Grey MD 10/19/17 2496: Assessment/Plan CRCU Other Findings/Comments: Maksim Ramachandran M.D. have examined this patient, reviewed available EMR data, personally reviewed images, discussed with resident/PA/PLASTER WHITTLER, discussed management plan with housestaff and nursing staff, discussed managment plan all of healthcare providers, discussed management plan with patient and/or family, agreed with resident/PA/PLASTER WHITTLER. The past history and parts of the chart have been autopopulated. Impression 57-year-old woman * Acute hypoxemic respiratory failure secondary to pulmonary edema due to uncontrolled hypertension * Significant hypothyroidism * Leukocytosis likely secondary to stress steroid use Plan Respiratory - Continue mechanical ventilation at this time would be premature to extubate given her continued pulmonary findings and possible ischemia. Infectious Disease - leukocytosis is likely secondary to steroid use will monitor, please repeat chest x-ray tomorrow Cardiovascular - follow-up cardiology input and follow-up echo, monitor hemodynamics Hematology - monitor CBC, coags, continue heparin drip Metabolic - follow-up endocrinology recommendations, stress dose steroids are held Synthroid adjusted Alimentary - nothing by mouth for now Neurology - continue mild sedation per protocol DVT prophylaxis at all times TTS 40 min Consult Acknowledgment - Thank you for your consult request.
[2017-10-19 08:00] VITALS: BP 94/70
--- NOTE | 2017-10-19 11:29 | Cons- Endocrinology ---
General Information and HPI Consulting Request Date of Consult: 10/19/17 Requested By: ICU team Reason for Consult: management of profound hypothyroidism Source of Information: patient, old records Exam Limitations: patiemt is intubated History of Present Illness: 57-year-old female with a medical history of hypertension (not on any prescribed medication), chronic active smoker, presented to the emergency department via EMS with a chief complaint of difficulty breathing. She was diagnosed with pulmonary edema with EKG changes along with positive troponin. Patient was intubated in ER due to hypoxemia respiratory failure. Blood work showed TSH 348 and free T4 0.43. Patient initially was hypertensive and tachycardiac. Then she developed hypotension and bradycardia and patient was put on pressor. Stress dose of steroid hydrocortisone 100 mg iv x one time and Levothyroxine 100 mcg iv x one time were given last night. Her random cortisol in ER was 27.2. Repeat TFT this morning showed TSH 90.6 and free T4 0.92. Patient remains intubated. But she is alert. As per patient, her brothers have had thyroid disorder. In addition, in ER, her glucose level was found to be 322. However, FSGs overnight were 74 and 130. HbA1c is pending. Allergies/Medications Allergies: Coded Allergies: amoxicillin (Intermediate, ITCHY, SOB 10/18/17) ciprofloxacin (From CIPRO) (Intermediate, ITCHY, SOB 10/18/17) Penicillins (ITCHY, SOB 10/18/17) Home Med List: Ibuprofen (Advil) (Unknown Strength) CAPSULE (Unknown Dose) PO PRN PAIN/ INFLAMMATION (Reported) Review of Systems Review of Systems Constitutional: Reports: see HPI. Cardiovascular: Reports: orthopena. Respiratory: Reports: short of breath. GI: Denies: abdominal pain. Musculoskeletal: Denies: back pain. Hematologic/Endocrine: Reports: see HPI. Past History Travel History Traveled to [place] past 21 day No Medical History Blood Transfusion Hx: No Neurological: NONE EENT: NONE Cardiovascular: hypertension Respiratory: NONE Gastrointestinal: NONE Hepatic: NONE Renal: NONE Musculoskeletal: NONE Psychiatric: NONE Endocrine: NONE Blood Disorders: NONE Cancer(s): NONE FIELD SERVICE TECH/Reproductive: NONE Surgical History Surgical History: unobtainable Family History Relations & Conditions If Any: MOTHER (Diabetes, hyperlipidemia,). . FATHER (CABG at age of 60 year). Psychosocial History Where Do You Live? Home Services at Home: None Smoking Status: Current Everyday Smoker ETOH Use: 5 Functional Ability ADLs Independent: dressing, eating, toileting, bathing. Ambulation: independent IADLs Independent: shopping, housework, finances, food prep, telephone, transportation , medication admin. Exam & Diagnostic Data Last 24 Hrs of Vital Signs/I&O Vital Signs Date Time Temp Pulse Resp B/P B/P Pulse O2 O2 Flow FiO2 Mean Ox Delivery Rate 10/19 1113 40 10/19 0840 45 10/19 0800 99 Ventilator 50% 10/19 0800 98.2 65 18 94/70 99 Ventilator 50% 10/19 0620 50 10/19 0400 95 Ventilator 50% 10/19 0338 50 10/19 0334 65 10/19 0040 65 10/19 0037 75 10/19 0000 99 Ventilator 65% 10/18 2300 97.7 62 18 60/40 96 Ventilator 75% 10/18 2300 95 Ventilator 75% 10/18 2249 72 168/84 10/18 2244 97.1 87 20 196/100 95 Ventilator 10/18 2242 75 10/18 2140 65 102/60 10/18 2130 66 74/56 10/19 2051 70 138/86 10/183 110 144/96 10/18 2038 100 18 144/96 95 Ventilator 75% 10/18 2032 Ventilator 10/18 2020 118 222/146 10/18 2008 122 262/176 10/18 1950 60 Intake & Output 10/19 1600 10/19 0800 10/19 0000 Intake Total 1022 0 Output Total 965 Balance 57 0 Intake, IV 1022 Intake, Oral 0 Number 0 Bowel Movements Output, Urine 965 Patient 156 lb 157 lb Weight Weight Bed scale Measurement Method Physical Exam General Appearance: intubated Neck: difficult to palpate her thyroid gland as she is intubated Respiratory: coarse breath sounds bilaterally Cardiovascular: regular rate/rhythm, bradycardia Extremities: mild edema Labs/Brian Results: Laboratory Tests 10/19/17414: Troponin I 0.46 *H, PT 12.6 H, INR 1.15 10/19/17414: Anion Gap 11, Estimated GFR 51 L, Glucose 78, Calcium 8.5, Phosphorus 4.2, Magnesium 1.7, Total Bilirubin 1.0, AST 16, ALT 31, Albumin 3.3 L, Triglycerides 181 H, Cholesterol 249 H, LDL Cholesterol, Calc 174 H, HDL Cholesterol 39 L, Cholesterol/HDL Ratio 6 H, TSH 90.600 H, Free T4 0.92, Thyroxine Binding Indx 38.4, Cortisol AM Sample 87.9 H, APTT 42 H, CBC w Diff MAN DIFF ORDERED, RBC 4.81, MCV 81.8, MCH 26.5 L, MCHC 32.4 L, RDW 17.8 H, MPV 9.4, Gran % 94.0 H, Lymphocytes % 2.9 L, Monocytes % 2.9, Eosinophils % 0.1, Basophils % 0.1, Absolute Granulocytes 12.7 H, Segmented Neutrophils 93 H , Band Neutrophils 3, Absolute Lymphocytes 0.4 L, Lymphocytes 1 L, Monocytes 3 , Absolute Monocytes 0.4, Absolute Eosinophils 0, Absolute Basophils 0, Platelet Estimate ADEQUATE, Polychromasia 1+, Hypochromic-Microcytic 1+, Poikilocytosis 1 +, Ovalocytes 1+, Thyroglobulin Antibody 44, Thyroid Peroxidase Ab > 1300 H, Fld Total RBCs Counted 100 10/19/17 0035: Troponin I 0.51 *H 10/19/17 0035: Lactic Acid 1.5 10/19/17 0030: Free T4 Cancelled 10/19/17 0000: Urinalysis LIGHT H, Urine Color STRAW, Urine Clarity CLEAR, Urine pH 6.0, Ur Specific [place] 1.010, Urine Protein 30 H, Urine Ketones NEG, Urine Nitrite NEG, Urine Bilirubin NEG, Urine Urobilinogen 0.2, Ur Leukocyte Esterase TRACE H , Ur Microscopic SEDIMENT EXAMINED, Urine RBC 1-3, Urine WBC 5-10 H, Ur Epithelial Cells FEW, Urine Bacteria MANY H, Hyaline Casts RARE H, Urine Mucus FEW, Urine Hemoglobin TRACE-INTACT, Urine Glucose NEG 10/18/17 2150: Urine Opiates Screen < 100, Methadone Screen < 40, Barbiturate Screen < 60, Ur Phencyclidine Scrn < 6.00, Amphetamines Screen < 100, U Benzodiazepines Scrn < 85, Urine Cocaine Screen < 50, Urine Cannabis Screen < 5.00 10/18/17 2100: pH 7.35, pCO2 37, pO2 90, HCO3 20 L, ABG O2 Sat (Measured) 96.0, Carboxyhemoglobin 3.0, O2 Concentration % 90, Respiration Rate 18, O2 Delivery Method VENT, Vent Mode AC, Expiratory Pressure 8, Tidal Volume 550, Pressure Support 0, Phlebotomy Draw Site LEFT BRACHIAL 10/18/172035: Anion Gap 14, Estimated GFR 57 L, BUN/Creatinine Ratio 25.0, Glucose 322 H, Hemoglobin A1c Pending, Calcium 8.7, Phosphorus 6.9 H, Magnesium 1.8, Total Bilirubin 1.0, AST 26, ALT 30, Alkaline Phosphatase 95, Troponin I 0.09, Total Protein 7.3, Albumin 4.1, Globulin 3.2, Albumin/Globulin Ratio 1.3, TSH 348.000 H, Free T4 0.43 L, Cortisol PM Sample 27.2 H, PT 12.0, INR 1.10, APTT 31, CBC w Diff NO MAN DIFF REQ, RBC 5.70 H, MCV 82.4, MCH 26.4 L, MCHC 32.1 L, RDW 17.3 H, MPV 9.3, Gran % 83.7 H, Lymphocytes % 12.2 L, Monocytes % 2.3, Eosinophils % 1.3, Basophils % 0.5, Absolute Granulocytes 9.9 H, Absolute Lymphocytes 1.4, Absolute Monocytes 0.3, Absolute Eosinophils 0.2, Absolute Basophils 0.1, Serum Alcohol < 10.0 Microbiology 10/19 0000 URINE ROUT: Urine Culture - RECD 10/19 0000 UPPER RESP: Surveillance Culture - RECD 10/19 0000 GI: Surveillance Culture - RECD 10/18 2349 BLOOD: Blood Culture - RECD 10/18 2344 BLOOD: Blood Culture - RECD Assessment/Plan Assessment/Plan 57 y/o female, hx of hypertension untreated, hasn't seen a physician for 5-6 years, was admitted for pulmonary edema, EKG changes, positive troponin and hypoxemic respiratory failure. She was intubated in ER. Blood work showed profound hypothyroidism ( TSH 348 and free T4 0.43 )with positve anti TPO of > 1300. Patient received Levothyroxine 100 mcg iv x1 and stress dose of steroid last night. Clinically she has been improving. Repeat TFT this morning showed TSH 90.6 and free T4 0.92. management: 1. hold off on stress dose of steroid for now; 2. start levothyroxine 62.5 mcg iv daily for now; 3. monitor TSH and free T4 tomorrow morning; then her thyroid medication will be adjusted accordingly. 4. monitor FSG and follow HbA1c 5. will obtain thyroid u.s as outpatient. will follow Consult Acknowledgment - Thank you for your consult request.
[2017-10-19 12:00] VITALS: BP 102/70
[2017-10-19 13:24] LABS: PTT 31 SEC (25-37)
[2017-10-19 15:29] VITALS: BP 100/71
--- NOTE | 2017-10-19 18:49 | PN- Cardiology ---
Subjective Subjective: * This patient is alert and responsive. She only reports a feeling of congestion prior to admission but otherwise denies any chest discomfort. * sinus bradycardia on Neosynephrine to maintain blood pressure * Mildly elevated troponins of 0.46 with a downward trend * slightly improved TSH Objective Vital Signs and I&Os Vital Signs Date Time Temp Pulse Resp B/P B/P Pulse O2 O2 Flow FiO2 Mean Ox Delivery Rate 10/19 1606 98.1 10/19 1600 35 10/19 1529 99 Ventilator 10/19 1529 60 18 100/71 97 Ventilator 10/19 1406 40 10/19 1200 99 Ventilator 40% 10/19 1200 97.3 60 18 102/70 99 Ventilator 40% 10/19 1113 40 10/19 0840 45 10/19 0800 99 Ventilator 50% 10/19 0800 98.2 65 18 94/70 99 Ventilator 50% 10/19 0620 50 10/19 0400 95 Ventilator 50% 10/19 0338 50 10/19 0334 65 10/19 0040 65 10/19 0037 75 10/19 0000 99 Ventilator 65% 10/18 2300 97.7 62 18 60/40 96 Ventilator 75% 10/18 2300 95 Ventilator 75% 10/18 2249 72 168/84 10/18 2244 97.1 87 20 196/100 95 Ventilator 10/18 2242 75 10/18 2140 65 102/60 10/18 2130 66 74/56 10/18 2052 70 138/86 10/183 110 144/96 10/18 2039 100 18 144/96 95 Ventilator 75% 10/18 2032 Ventilator 10/18 2020 118 222/146 10/19 2007 122 262/176 10/18 1950 60 Intake & Output 10/19 1600 16 0800 10/19 0000 10/18 1600 10/18 0800 10/18 0000 Intake Total 0 1022 0 Output Total 50 965 Balance -50 57 0 Intake, IV 1022 Intake, Oral 0 0 Number 0 0 Bowel Movements Output, Urine 50 965 Patient 156 lb 157 lb Weight Weight Bed scale Measurement Method Physical Exam: General: WD/overweight female. Intubated. Awake and responsive. HEENT: NC/AT, PERRL, EOMI Neck: no JVD, no carotid bruits Heart: RRR w/o mumrur Lungs: no crackles or wheezing Abdomen: soft, obese, NT, +ve bowel sounds Extrenities: no edema Assessment/Plan Assessment/Plan * This patient continues to demonstrate evidence of hypothyroidism. We will follow Dr. Combs recommendations for thyroid replacement. * The patient continues to have some bilateral pulmonary edema. I believe that this was initially related to severe hypertension and the decreased myocardial contractility and heart rate related to severe hypothyroidism. This should improve. Due to her borderline BP requiring pressors we cannot diurese at this time. He EF is mildly decreased by echo. We will therefore stop neosynephrine and begin a dobutamine drip at 5mcg/kg/min. If her BP then remains above 100mmHg on this medication we will try to diurese a bit more with lasix. I would opt to keep intubated until her lungs are clear. * I have a low suspicion of sepsis and suspec that her slightly increase WBC count is related to a stress dose of steroids. Continue telemetry? Yes
[2017-10-19 21:21] LABS: PTT 30 SEC (25-37)
--- NOTE | 2017-10-19 22:25 | ECHOCARDIOGRAM REPORT ---
CARON NDIAYE Age: 57 : 1960 Gender: F Exam Date: 10/19/2017 08:44 Exam Location: [facility] Ht (in): 66 Wt (lb): 170 BSA: 1.91 BP: 85 / 67 Ordering Physician: Gerhard Quinonez MD Referring Physician: Gerhard Quinonez MD Technologist: Giles Edward [facility] Room Number: 102 Indications: MYOCARDIAL ISCHEMIA/AR Rhythm: Sinus Technical Quality: fair FINDINGS Left Ventricle Normal left ventricular size with moderate left ventricular hypertrophy. Mildly decreased systolic function with no obvious regional wall motion abnormalities. The ejection fraction is visually estimated at 45%. Right Ventricle The right ventricle is normal in size and function. Right Atrium The right atrium is normal in size. Left Atrium The left atrium is normal in size. The interatrial septum is intact. Mitral Valve The mitral valve is normal in structure and function. There is no mitral regurgitation. Aortic Valve Structurally normal aortic valve without significant sclerosis or stenosis. There is no aortic regurgitation. Tricuspid Valve The tricuspid valve is normal in structure and function. There is no tricuspid regurgitation. Pulmonic Valve Structurally normal pulmonic valve. There is no pulmonic regurgitation. Pericardium Normal pericardium without effusion. No pleural effusion. Great Vessels Normal aortic root dimension. The aortic arch and great vessels are well seen and are normal. CONCLUSIONS 1. Mildly decreased EF of 45%. 2. Moderate left ventricular hypertrophy. Berry Kulkarni M.D. (Electronically Signed) Final Date: 19 October 2017 22:25 MEASUREMENTS (Male / Female) Normal Values 2D ECHO LV Diastolic Diameter PLAX 4.0 cm 4.2 - 5.9 / 3.9 - 5.3 cm LV Systolic Diameter PLAX 3.1 cm 2.1 - 4.0 cm LV Fractional Shortening PLAX 22.5 % 25 - 46 % LV Ejection Fraction 2D Teich 45.8 % IVS Diastolic Thickness 1.9 cm LVPW Diastolic Thickness 1.9 cm LV Relative Wall Thickness 0.9 LVOT Diameter 2.1 cm Aortic Root Diameter 3.3 cm LA Systolic Diameter LX 2.3 cm 3.0 - 4.0 / 2.7 - 3.8 cm LA Volume 52.0 cm 18 - 58 / 22 - 52 cm DOPPLER AV Peak Velocity 157.0 cm/s AV Peak Gradient 9.9 mmHg AV Mean Velocity 110.0 cm/s AV Mean Gradient 6.0 mmHg AV Velocity Time Integral 25.2 cm LVOT Peak Velocity 63.2 cm/s LVOT Peak Gradient 1.6 mmHg LVOT Mean Velocity 38.7 cm/s LVOT Mean Gradient 1.0 mmHg LVOT Velocity Time Integral 8.3 cm LVOT Stroke Volume 28.6 cm AV Area Cont Eq vti 1.1 cm AV Area Cont Eq pk 1.4 cm MV Peak Velocity 70.3 cm/s MV Peak Gradient 2.0 mmHg MV Mean Velocity 43.0 cm/s MV Mean Gradient 1.0 mmHg Mitral E Point Velocity 57.8 cm/s Mitral A Point Velocity 75.0 cm/s Mitral E to A Ratio 0.8 MV PHT Velocity 62.4 cm/s MV Deceleration [place] 145.0 cm/s MV Pressure Half Time 129.1 ms MV Area PHT 1.7 cm MV Deceleration Time 285.0 ms PV Peak Velocity 89.6 cm/s PV Peak Gradient 3.2 mmHg PV Mean Velocity 59.5 cm/s PV Mean Gradient 2.0 mmHg PV Velocity Time Integral 17.3 cm LV E' Lateral Velocity 4.2 cm/s Mitral E to LV E' Lateral Ratio 13.8 LV E' Septal Velocity 3.6 cm/s Mitral E to LV E' Septal Ratio 16.0
[2017-10-20] VITALS: BP 112/68
[2017-10-20 04:21] LABS: ABSOLUTE BASOPHIL COUNT 0 /CUMM (0.0-0.2); ABSOLUTE EOSINOPHIL COUNT 0 /CUMM (0.0-0.7); ABSOLUTE GRANULOCYTE CT 6.9 /CUMM (1.4-6.5); ABSOLUTE LYMPH COUNT 1.4 /CUMM (1.2-3.4); ABSOLUTE MONOCYTE COUNT 0.5 /CUMM (0.10-0.60); BASOPHIL % 0.4 % (0.0-2.0); GRANULOCYTE % 77.8 % (42.2-75.2); WHITE BLOOD CELL COUNT 8.9 /CUMM (4.8-10.8)
[2017-10-20 04:32] LABS: EOSINOPHIL % 0.4 % (0-5); MEAN CORPUSCULAR HGB 26.5 PG (27.0-31.0); MEAN CORPUSCULAR HGB CONC 32.7 G/DL (33.0-37.0); MEAN CORPUSCULAR VOLUME 81.1 FL (81.0-99.0); MEAN PLATELET VOLUME 9.3 FL (7.4-10.4); PLATELET COUNT 188 /CUMM (130-400); RBC DISTRIBUTION WIDTH 17.9 % (11.5-14.5); RED BLOOD CELL CT 4.05 /CUMM (4.20-5.40)
[2017-10-20 04:44] LABS: HEMATOCRIT 32.9 % (37-47)
[2017-10-20 05:01] LABS: PTT > 120 SEC (25-37)
[2017-10-20 08:00] VITALS: BP 120/70
--- NOTE | 2017-10-20 08:17 | PN- Resident CRCU ---
Subjective HPI/CRCU Issues: Overnight issues: No acute events overnight. Patient has remained stable switched from a jerald to dobutamine drip. Patient reports that her breathing and cough have improved. States that she still feels congested. Patient is currently on continuous suction bringing up brown/red mucus. Patient denies any chest pain, palpitations, dizziness, lightheadedness, blurry vision, headache, abdominal pain, nausea/vomiting. Patient has a Peres in place. Patient is currently intubated. Vitals: T 99.5, heart rate 56-78, sinus bradycardia to normal sinus rhythm respiration rate 18-25, blood pressure ranging from 100/72 to 137/77 currently on dobutamine drip, saturating at 98-100% Total I: 3872, O: 1650 Labs: WBC: 8.9, granulocytes 77.8% and no bands, H&H 10.8 and 32.9, platelets 188 Sodium 139, potassium 3.1, chloride 105, bicarbonate 23, BUN 34, creatinine 1.6 (up from 1.1 the day before), calcium 8.7, phosphorus 4.1, magnesium 2.0, LFTs within normal limits, albumin 2.9, TSH 147 (increased from 90.6), free T4 decreased to 0.76 from 0.92 Imaging: Chest x-ray: Interval improvement. The right lung is now clear. Persistent left lower lobe opacity and [id number] left pleural effusion. Microbiology: Blood cultures from October 18 show no growth to date Urine culture from October 19 growing gram-negative rods Sputum culture from October 19 showing no growth to date Sputum Gram stain showing few white blood cells, moderate gram-positive cocci in pairs and chains, few gram-positive rods, rare yeast Objective Vital Signs & I&O Last 8 Hrs of Vitals and I&O: Vital Signs Date Time Temp Pulse Resp B/P B/P Pulse O2 O2 Flow FiO2 Mean Ox Delivery Rate 10/20 0857 35 10/20 0800 98 Ventilator 35% 10/20 0800 98.1 66 20 120/70 98 Ventilator 35% 10/20 0706 65 131/62 10/20 0618 35 10/20 0400 98 Ventilator 35% 10/20 0345 35 Exam General Appearance: well developed/nourished, no apparent distress, alert, comfortable Head: atraumatic Respiratory: no respiratory distress, rhonchi Cardiovascular: regular rate/rhythm Gastrointestinal: normal bowel sounds, soft, non-tender Extremities: normal inspection, no edema Cranial Nerves: normal hearing, PERRL IV Drips IV Drips: IV heparin IV dobutamine Current Medications: Current Medications Sig/Ye Start time Last Medication Dose Route Stop Time Status Admin Acetaminophen 1,000 MG Q8P PRN 10/18 2215 AC IV Dextrose/Sodium 1,000 ML Q20H 10/19 1215 DC 10/19 Chloride IV 10/20 0814 1235 Dobutamine HCl 250 MG Q24H 10/19 1900 AC 10/20 Dextrose/Water 250 ML IV 0706 Fentanyl Citrate 1,000 MCG Q13H 10/19 1600 AC 10/19 Dextrose/Water 250 ML IV 1736 Furosemide 40 MG ONCE ONE 10/20 0845 DC 10/20 IV 10/20 0846 0921 Heparin Sodium 5,000 UNIT .STK-MED ONE 10/19 2244 DC (Porcine) IV 10/19 2245 Heparin Sodium 4,246 UNIT BOLUS ONE 10/19 2214 DC 10/19 (Porcine) IV 10/19 2215 2244 Heparin Sodium 25,000 UNIT Q24H 10/18 2130 AC 10/19 (Porcine) IV 2047 Sodium Chloride 500 ML Insulin Human Regular 0 Q6 10/19 0045 10/20 SC 0605 Levothyroxine Sodium 100 MCG ONCE ONE 10/20 1030 CAN IV 10/20 1031 Levothyroxine Sodium 62.5 MCG DAILY 10/19 1000 AC 10/20 IV 1103 Morphine Sulfate 2 MG Q4P PRN 10/18 2215 AC IV Pantoprazole Sodium 40 MG DAILY 10/19 0200 AC 10/20 IV 0920 Phenylephrine HCl 40 MG Q24H 10/19 1815 DC Sodium Chloride 250 ML IV Potassium Chloride 20 MEQ Q1H 10/20 1015 DC 10/20 IV 10/20 1116 1337 Potassium Chloride 20 MEQ Q1H 10/20 0600 DC 10/20 IV 10/20 0701 0809 Trimethobenzamide HCl 200 MG 4 TIMES/DAY PRN 10/19 0915 10/19 IM 0931 Impression/Plan Impression/Problem List Impression: Patient is a 57-year-old female with past medical history significant for hypertension not currently taking any medication, antiphospholipid antibody syndrome (not on anticoagulation or aspirin due to reported bleeding),psoriasis in remission (not on any immunosuppressant), inflammatory arthritis taking ibuprofen only, chronic interstitial cystitis, who has not seen a physician for the past 5 years presenting this admission with acute respiratory distress. Patient required intubation on arrival due to impending respiratory failure. Initially came in with acute hypertensive emergency with bp of 276/176. Patient was diuresed, received IV lopressor and nitroglycerin with an acute drop in her blood pressure. After which patient continued to have labile blood pressure with severe hypotension requiring IV pressor support. A central line was placed and patient was started on IV Jerald-Synephrine. Patient's chest xray was concerning for pulmonary edema likely flash pulmonary edema secondary to hypertensive emergency. This may also be secondary to decompensated congestive heart failure as well with a pro-BNP of 16,000. Patient on exam had bilateral crackes however no JVD or lower extremity edema was appreciated. Patient's pulmonary edema may also be attributed to severe hypothyroidism and uncontrolled hypertension. Patient received IV lasix in the ED. Further diureses was held due to hypotension. The patient is being treated and evaluated for following conditions: Respiratory #Acute hypoxemic respiratory failure due to acute pulmonary edema Patient on 10/20 was weaned off the ventilator, blood gas was done and patient was extubated. Patient was transitioned to nasal cannula. Patient was mildly fluid positive and received 1 dose of IV lasix 40mg. - continue to monitor I/O - continue to monitor pulse ox - respiratory therapy is onboard - continue to wean off oxygen as tolerated Infection #Leukocytosis Likely reactive secondary to steroids. Patient remains afebrile without complaints. - will watch off antibiotics - follow up blood cultures - follow up urine culture identification and sensitivities - continue to monitor vitals - repeat CBC in am #Asymptomatic bacteuria Patient is growing gram negative rods in urine. Patient has not had any urinary symptoms prior to admission. However patient has a history of chronic interstitial cystitis and has previously had recurrent infections requiring antibiotics. - Will watch off antibiotics at this time - Follow up urine culture- identification and sensitivities pending Cardiology #Congestive heart failure Echo is showing left ventricular ejection fraction of 45% with moderate ventricular hypertrophy - Continue to monitor stricts I/O - Patient received a one-time dose of IV Lasix 40 mg today. No further diuresis at this time. - Cardiology is on board # SC type 1 vs type II Patient had elevated ST segments in leads V1, V2, V3 with recepirocal depression in inferior and lateral leads. Repeat EKG showed improvement. Patient's troponin peaked to 0.51 and decreased. Patient was seen by cardiology and started on IV heparin drip along with aspirin. Patient denies chest pain at this time. Echocardiogram shows LVEF of 45% with no obvious wall motion abnormalities. Likely demand ischemia secondary to initial hypertensive crisis and pulmonary edema followed by hypotension. - Cardiology is on board. Appreciate recommendations. - continue IV heparin - continue aspirin daily - Continue dobutamine per cardiology - continue morphine as needed #Hypertensive emergency Patient is now hypotensive to normotensive. - Continue to monitor BP - Continue to monitor creatinine - Continue telemetry monitoring - No antihypertensives at this time as patient is hypotensive requiring pressor support - Per cardiology continue IV dobutamine for next 24 hours Hematology #Anti-phospholipid antibody syndrome Patient has a history of miscarriages. Patient was on aspirin years prior which she stopped due to epistaxis and gum bleeding. Patient is at high risk of clotting. - Continue IV heparin and aspirin Metabolic #Hypothyroidism Patient had elevated thyroid stimulating hormone of >300. Patient reports a remote history of thyroid dysfunction in the past. It is unclear if she was previously diagnosed with hypothyroidism in the past. Patient's thyroid antibodies were positive. Likely patient has hashimotos. Patient is symptomatic with fatigue, weakness, cold intolerance, hair loss and likely cardiac dysfunction. Patient's repeat TSH today was elevated and T4 was slightly decreased from previous day. Thus far patient has received IV Synthroid 100 g continue levothyroxine 62.5 g IV daily as the distribution of thyroid hormone will take some time. Therefore it is not necessary to increase her dose further at this time. We'll continue to monitor patient's thyroid function tests. - Continue levothyroxine 62.5 g IV daily - Repeat TSH and T4 in AM - Endocrinology is onboard. Appreciate recommendations. Alimentary Patient was extubated today. - Bedside swallow evaluation today Nephrology #SHIV Creatinine increased from 1.1 to 1.6 today. Likely prerenal in the setting of hypotension and congestive heart failure. - avoid nephrotoxic agents - continue to monitor creatinine daily - continue to monitor I/O - peres is placed - IV fluids held in setting of acute pulmonary edema DVT prophylaxis On IV heparin Code Status Full code Problem List: 1. Pulmonary edema 2. Cardiac ischemia 3. Acute respiratory failure Pain Ratin Tomorrow's Labs & Rationales: cbc - anemia bep - creatinine, electrolytes tsh and free T4 - hypothyroidism Plan DVT/Prophylaxis: mechanical, pharmacological Plan DVT/Prophylaxis: mechanical, pharmacological
--- NOTE | 2017-10-20 08:33 | Event Note ---
Event Note Event Note: S: missed beats in telemonitor, EKG SR with no LA prolongation, rate 74 B: Patient has CHF and hypothyrodism on Dobutamine drip A: BP in 120/50 aut, manual 112/60, rate 70s R: Called Dr. Kulkarni, continue current management, close monitoring, give lasix 40 mg IV if BP tolerates. Dr. Gary was made aware.
--- NOTE | 2017-10-20 08:48 | RADIOLOGY REPORT ---
EXAMINATION: XR PORTABLE CHEST CLINICAL INFORMATION: Shortness of breath, intubated. COMPARISON: Multiple prior studies most recently 10/19/2017. TECHNIQUE: Portable AP 85-degree upright view of the chest was obtained. FINDINGS: The endotracheal tube terminates just below the thoracic inlet, similar to prior. Left subclavian line extends to the origin of the SVC. There is continued improvement in lung aeration. The right lung is now clear. The left lung demonstrates unresolved consolidation and pleural effusion at the left base. IMPRESSION: Interval improvement. The right lung is now clear. Persistent left lower lobe opacity and [id number] left pleural effusion.
--- NOTE | 2017-10-20 09:22 | PN- CRCU ---
Subjective HPI/Critical Care Issues: She is awake alert to remains intubated. Hemodynamics are improved she is no longer requiring pressors Objective Current Medications: Current Medications Sig/Ye Start time Last Medication Dose Route Stop Time Status Admin Acetaminophen 1,000 MG Q8P PRN 10/18 2215 IV Dextrose/Sodium 1,000 ML Q20H 10/19 1215 DC 10/19 Chloride IV 10/20 0814 1235 Dobutamine HCl 250 MG Q24H 10/19 1900 10/20 Dextrose/Water 250 ML IV 0706 Fentanyl Citrate 1,000 MCG Q13H 10/19 1600 AC 10/19 Dextrose/Water 250 ML IV 1736 Fentanyl Citrate 1,000 MCG Q24H 10/19 0200 DC 10/19 Dextrose/Water 250 ML IV 10/19 1559 0259 Furosemide 40 MG ONCE ONE 10/20 0845 DC IV 10/20 0846 Heparin Sodium 5,000 UNIT .STK-MED ONE 10/19 2244 DC (Porcine) IV 10/19 2245 Heparin Sodium 4,246 UNIT BOLUS ONE 10/19 2214 DC 10/19 (Porcine) IV 10/19 2215 2244 Heparin Sodium 5,000 UNIT .STK-MED ONE 10/19 1418 DC (Porcine) IV 10/19 1419 Heparin Sodium 4,200 UNIT ONCE ONE 10/19 1415 DC 10/19 (Porcine) IV 10/19 1416 1419 Heparin Sodium 25,000 UNIT Q24H 10/18 2130 10/19 (Porcine) IV 2047 Sodium Chloride 500 ML Insulin Human Regular 0 Q6 10/19 0045 10/20 SC 0605 Levothyroxine Sodium 62.5 MCG DAILY 10/19 1000 10/19 IV 1107 Morphine Sulfate 2 MG Q4P PRN 10/18 2215 AC IV Pantoprazole Sodium 40 MG DAILY 10/19 0200 10/19 IV 0949 Phenylephrine HCl 40 MG Q24H 10/19 1815 DC Sodium Chloride 250 ML IV Potassium Chloride 20 MEQ Q1H 10/20 0600 DC 10/20 IV 10/20 0701 0809 Trimethobenzamide HCl 200 MG 4 TIMES/DAY PRN 10/19 0915 10/19 IM 0931 Vital Signs & I&O Last 24 Hrs of Vitals and I&O: Vital Signs Date Time Temp Pulse Resp B/P B/P Pulse O2 O2 Flow FiO2 Mean Ox Delivery Rate 10/20 0857 35 10/20 0800 98 Ventilator 35% 10/20 0800 98.1 66 20 120/70 98 Ventilator 35% 10/20 0706 65 131/62 10/20 0618 35 10/20 0400 98 Ventilator 35% 10/20 0345 35 10/20 0100 35 10/20 0000 98 Ventilator 35% 10/20 0000 99.5 65 25 112/68 98 Ventilator 35% 10/19 2210 35 10/19 2030 56 103/64 10/19 2000 98 Ventilator 35% 10/19 1910 35 10/19 1606 98.1 10/19 1600 35 10/19 1529 99 Ventilator 10/19 1529 60 18 100/71 97 Ventilator 10/19 1406 40 10/19 1200 99 Ventilator 40% 10/19 1200 97.3 60 18 102/70 99 Ventilator 40% 10/19 1113 40 Intake & Output 10/20 1600 10/20 0800 03 0000 Intake Total 1854 439.3 Output Total 200 335 Balance 1654 104.3 Intake, IV 1854 439.3 Intake, Oral 0 Number 0 Bowel Movements Output, 50 150 Gastric Drainage Output, Urine 150 185 Patient 158 lb Weight Weight Bed scale Measurement Method And saturation 35% 98. Rate 18 tidal volume 500 exam for chest shows occasional rhonchi cardiac exam shows regular S1 and S2 abdomen is soft nontender. Chest x -ray is improved. Impression/Plan Impression/Plan Impression/Plan: 57-year-old woman admitted with hypertensive emergency myocardial infarction respiratory failure congestive heart failure has improved respiratory status. She appears to be significantly hypothyroid. Recommendations: Begin weaning trials with CPAP pressure support. FiO2 can be tapered. Negative fluid balance as renal function allows. Further management of cardiac issues per Dr. Kulkarni. Follow-up sputum C&S.
--- NOTE | 2017-10-20 09:44 | PN- Endocrinology ---
Assessment/Plan Endoscopy Assessment: Patient remains on the respirator. She is alert and oriented. She is communicating by writing. She states she feels better. The patient is on IV levothyroxine 62.5 mcg daily. Her blood work this morning shows a TSH of 147 and a free T4 0.76. Patient's creatinine has gone up this morning to 1.6 and her potassium is low at 3.1. Her blood sugar is 96. Patient is on regular insulin coverage every 6 hours. Her hemoglobin A1c is 5.8. Her blood sugar was initially elevated on admission but more recently is 86 and 104 by fingerstick. Her chest x-ray shows interval improvement with the right lung now being clear in the persistent left lower lobe opacity and a [id number] left pleural effusion is present. Plan: Suggest continue levothyroxine intravenously 62.5 mcg daily. Repeat free T4 and TSH again tomorrow. With regard to her blood sugar we need to change the coverage. We would like to change regular insulin coverage to less than 150 give no insulin, 151-200 give 2 units regular, 201-250 give 3 units regular, 251-300 give 4 units regular, 301- 350 give 5 units regular, 3 5104 100 give 6 units regular. Attempts are going to be made to wean the patient off the respirator today. If that is not possible we should begin some IV fluids in the form of D5 half- normal saline with 20 mEq KCl at 75 cc/h. Now that the patient is receiving thyroid hormone her cardiac function should improve. In addition she should perfuse her kidneys better. However labs show signs of acute kidney injury and the patient may actually be over diuresed at this point. Would recheck her renal function after careful hydration later on today. Subjective Subjective: Feels improved. She is on a respirator and complains of some congestion in her chest by writing. She denies any chest pain. Objective Last 24 Hrs of Vital Signs/I&O Vital Signs Date Time Temp Pulse Resp B/P B/P Pulse O2 O2 Flow FiO2 Mean Ox Delivery Rate 10/20 0857 35 10/20 0800 98 Ventilator 35% 10/20 0800 98.1 66 20 120/70 98 Ventilator 35% 10/20 0706 65 131/62 10/20 0618 35 10/20 0400 98 Ventilator 35% 10/20 0345 35 10/20 0100 35 10/20 0000 98 Ventilator 35% 10/20 0000 99.5 65 25 112/68 98 Ventilator 35% 10/19 2210 35 10/19 2030 56 103/64 10/20 1999 98 Ventilator 35% 10/19 1910 35 10/19 1606 98.1 10/19 1600 35 10/19 1529 99 Ventilator 10/19 1529 60 18 100/71 97 Ventilator 10/19 1406 40 10/19 1200 99 Ventilator 40% 10/19 1200 97.3 60 18 102/70 99 Ventilator 40% 10/19 1113 40 Intake & Output 10/20 1600 10/20 0800 10/20 0000 Intake Total 1854 439.3 Output Total 200 335 Balance 1654 104.3 Intake, IV 1854 439.3 Intake, Oral 0 Number 0 Bowel Movements Output, 50 150 Gastric Drainage Output, Urine 150 185 Patient 158 lb Weight Weight Bed scale Measurement Method Laboratory Tests 10/20 10/19 10/19 0354 2020 1300 Chemistry Sodium (137 - 145 mmol/L) 139 Potassium (3.5 - 5.1 mmol/L) 3.1 L Chloride (98 - 107 mmol/L) 105 Carbon Dioxide (22 - 30 mmol/L) 23 Anion Gap (5 - 16) 11 BUN (7 - 17 mg/dL) 34 H Creatinine (0.5 - 1.0 mg/dL) 1.6 H Estimated GFR (>60 ml/min) 33 L Glucose (65 - 99 mg/dL) 96 Calcium (8.4 - 10.2 mg/dL) 8.7 Phosphorus (2.5 - 4.5 mg/dL) 4.1 Magnesium (1.6 - 2.3 mg/dL) 2.0 Total Bilirubin (0.2 - 1.3 mg/dL) 0.9 AST (14 - 36 U/L) 8 L ALT (9 - 52 U/L) 30 Albumin (3.5 - 5.0 g/dL) 2.9 L TSH (0.270 - 4.200 uIU/mL) 147.000 H Free T4 (0.64 - 1.79 ng/dL) 0.76 Coagulation APTT (25 - 37 SEC) > 120 *H 30 31 Hematology CBC w Diff NO MAN DIFF REQ WBC (4.8 - 10.8 /CUMM) 8.9 RBC (4.20 - 5.40 /CUMM) 4.05 L Hgb (12.0 - 16.0 G/DL) 10.8 L Hct (37 - 47 %) 32.9 L MCV (81.0 - 99.0 FL) 81.1 MCH (27.0 - 31.0 PG) 26.5 L MCHC (33.0 - 37.0 G/DL) 32.7 L RDW (11.5 - 14.5 %) 17.9 H Plt Count (130 - 400 /CUMM) 188 MPV (7.4 - 10.4 FL) 9.3 Gran % (42.2 - 75.2 %) 77.8 H Lymphocytes % (20.5 - 51.1 %) 15.6 L Monocytes % (1.7 - 9.3 %) 5.8 Eosinophils % (0 - 5 %) 0.4 Basophils % (0.0 - 2.0 %) 0.4 Absolute Granulocytes (1.4 - 6.5 /CUMM) 6.9 H Absolute Lymphocytes (1.2 - 3.4 /CUMM) 1.4 Absolute Monocytes (0.10 - 0.60 /CUMM) 0.5 Absolute Eosinophils (0.0 - 0.7 /CUMM) 0 Absolute Basophils (0.0 - 0.2 /CUMM) 0 Vital Signs Date Time Temp Pulse Resp B/P B/P Pulse O2 O2 Flow FiO2 Mean Ox Delivery Rate 10/20 0857 35 10/20 0800 98 Ventilator 35% 10/20 0800 98.1 66 20 120/70 98 Ventilator 35% 10/20 0706 65 131/62 10/20 0618 35 10/20 0400 98 Ventilator 35% 10/20 0345 35 10/20 0100 35 10/20 0000 98 Ventilator 35% 10/20 0000 99.5 65 25 112/68 98 Ventilator 35% 10/19 2210 35 10/19 2030 56 103/64 10/19 2000 98 Ventilator 35% 10/19 1910 35 10/19 1606 98.1 10/19 1600 35 10/19 1529 99 Ventilator 10/19 1529 60 18 100/71 97 Ventilator 10/19 1406 40 03/ 1200 99 Ventilator 40% 10/19 1200 97.3 60 18 102/70 99 Ventilator 40% 10/19 1113 40 Intake & Output 10/20 1600 10/20 0800 10/20 0000 Intake Total 1854 439.3 Output Total 200 335 Balance 1654 104.3 Intake, IV 1854 439.3 Intake, Oral 0 Number 0 Bowel Movements Output, 50 150 Gastric Drainage Output, Urine 150 185 Patient 158 lb Weight Weight Bed scale Measurement Method Vital Signs Date Time Temp Pulse Resp B/P B/P Pulse O2 O2 Flow FiO2 Mean Ox Delivery Rate 10/20 0857 35 10/20 0800 98 Ventilator 35% 10/20 0800 98.1 66 20 120/70 98 Ventilator 35% 10/20 0706 65 131/62 10/20 0618 35 10/20 0400 98 Ventilator 35% 10/20 0345 35 10/20 0100 35 10/20 0000 98 Ventilator 35% 10/20 0000 99.5 65 25 112/68 98 Ventilator 35% 10/19 2210 35 10/19 2030 56 103/64 10/19 2000 98 Ventilator 35% 10/19 1910 35 10/19 1606 98.1 10/19 1600 35 10/19 1529 99 Ventilator 10/19 1529 60 18 100/71 97 Ventilator 10/19 1406 40 10/19 1200 99 Ventilator 40% 10/19 1200 97.3 60 18 102/70 99 Ventilator 40% 10/19 1113 40 Intake & Output 10/20 1600 10/20 0800 10/20 0000 Intake Total 1854 439.3 Output Total 200 335 Balance 1654 104.3 Intake, IV 1854 439.3 Intake, Oral 0 Number 0 Bowel Movements Output, 50 150 Gastric Drainage Output, Urine 150 185 Patient 158 lb Weight Weight Bed scale Measurement Method Physical Exam General Appearance: alert, awake Neck: normal inspection Respiratory: normal breath sounds Cardiovascular: regular rate/rhythm Abdomen: normal bowel sounds Extremities: normal inspection Current Medications: Current Medications Sig/Ye Start time Last Medication Dose Route Stop Time Status Admin Acetaminophen 1,000 MG Q8P PRN 10/18 2215 AC IV Dextrose/Sodium 1,000 ML Q20H 10/19 1215 DC 10/19 Chloride IV 10/20 0814 1235 Dobutamine HCl 250 MG Q24H 10/19 1900 AC 10/20 Dextrose/Water 250 ML IV 0706 Fentanyl Citrate 1,000 MCG Q13H 10/19 1600 AC 10/19 Dextrose/Water 250 ML IV 1736 Fentanyl Citrate 1,000 MCG Q24H 10/19 0200 DC 10/19 Dextrose/Water 250 ML IV 10/19 1559 0259 Furosemide 40 MG ONCE ONE 10/20 0845 DC 10/20 IV 10/20 0846 0921 Heparin Sodium 5,000 UNIT .STK-MED ONE 10/19 2244 DC (Porcine) IV 10/19 2245 Heparin Sodium 4,246 UNIT BOLUS ONE 10/19 2214 DC 10/19 (Porcine) IV 10/19 2215 2244 Heparin Sodium 5,000 UNIT .STK-MED ONE 10/19 1418 DC (Porcine) IV 10/19 1419 Heparin Sodium 4,200 UNIT ONCE ONE 10/19 1415 DC 10/19 (Porcine) IV 10/19 1416 1419 Heparin Sodium 25,000 UNIT Q24H 10/18 2130 AC 10/19 (Porcine) IV 2047 Sodium Chloride 500 ML Insulin Human Regular 0 Q6 10/19 0045 10/20 SC 0605 Levothyroxine Sodium 62.5 MCG DAILY 10/19 1000 AC 10/19 IV 1107 Morphine Sulfate 2 MG Q4P PRN 10/18 221 AC IV Pantoprazole Sodium 40 MG DAILY 10/19 0200 AC 10/20 IV 0920 Phenylephrine HCl 40 MG Q24H 10/19 1815 DC Sodium Chloride 250 ML IV Potassium Chloride 20 MEQ Q1H 10/20 0600 DC 10/20 IV 10/20 0701 0809 Trimethobenzamide HCl 200 MG 4 TIMES/DAY PRN 10/19 0915 AC 10/19 IM 0931 Results Pertinent Lab/Brian Results: Laboratory Tests 10/20 10/19 10/19 0354 2020 1300 Chemistry Sodium (137 - 145 mmol/L) 139 Potassium (3.5 - 5.1 mmol/L) 3.1 L Chloride (98 - 107 mmol/L) 105 Carbon Dioxide (22 - 30 mmol/L) 23 Anion Gap (5 - 16) 11 BUN (7 - 17 mg/dL) 34 H Creatinine (0.5 - 1.0 mg/dL) 1.6 H Estimated GFR (>60 ml/min) 33 L Glucose (65 - 99 mg/dL) 96 Calcium (8.4 - 10.2 mg/dL) 8.7 Phosphorus (2.5 - 4.5 mg/dL) 4.1 Magnesium (1.6 - 2.3 mg/dL) 2.0 Total Bilirubin (0.2 - 1.3 mg/dL) 0.9 AST (14 - 36 U/L) 8 L ALT (9 - 52 U/L) 30 Albumin (3.5 - 5.0 g/dL) 2.9 L TSH (0.270 - 4.200 uIU/mL) 147.000 H Free T4 (0.64 - 1.79 ng/dL) 0.76 Coagulation APTT (25 - 37 SEC) > 120 *H 30 31 Hematology CBC w Diff NO MAN DIFF REQ WBC (4.8 - 10.8 /CUMM) 8.9 RBC (4.20 - 5.40 /CUMM) 4.05 L Hgb (12.0 - 16.0 G/DL) 10.8 L Hct (37 - 47 %) 32.9 L MCV (81.0 - 99.0 FL) 81.1 MCH (27.0 - 31.0 PG) 26.5 L MCHC (33.0 - 37.0 G/DL) 32.7 L RDW (11.5 - 14.5 %) 17.9 H Plt Count (130 - 400 /CUMM) 188 MPV (7.4 - 10.4 FL) 9.3 Gran % (42.2 - 75.2 %) 77.8 H Lymphocytes % (20.5 - 51.1 %) 15.6 L Monocytes % (1.7 - 9.3 %) 5.8 Eosinophils % (0 - 5 %) 0.4 Basophils % (0.0 - 2.0 %) 0.4 Absolute Granulocytes (1.4 - 6.5 /CUMM) 6.9 H Absolute Lymphocytes (1.2 - 3.4 /CUMM) 1.4 Absolute Monocytes (0.10 - 0.60 /CUMM) 0.5 Absolute Eosinophils (0.0 - 0.7 /CUMM) 0 Absolute Basophils (0.0 - 0.2 /CUMM) 0
--- NOTE | 2017-10-20 10:25 | PN- Cardiology ---
Subjective Subjective: The patient is awake and alert, though intubated. She denies any specific complaints. Her heart rate and rhythm have been stable except for occasional dropped PACs. Her blood pressure remains stable on dobutamine. Objective Vital Signs and I&Os Vital Signs Date Time Temp Pulse Resp B/P B/P Pulse O2 O2 Flow FiO2 Mean Ox Delivery Rate 10/20 0857 35 10/20 0800 98 Ventilator 35% 10/20 0800 98.1 66 20 120/70 98 Ventilator 35% 10/20 0706 65 131/62 10/20 0618 35 10/20 0400 98 Ventilator 35% 10/20 0345 35 10/20 0100 35 10/20 0000 98 Ventilator 35% 10/20 0000 99.5 65 25 112/68 98 Ventilator 35% 10/19 2210 35 10/19 2030 56 103/64 10/19 2000 98 Ventilator 35% 10/19 1910 35 10/19 1606 98.1 10/19 1600 35 10/19 1529 99 Ventilator 10/19 1529 60 18 100/71 97 Ventilator 10/19 1406 40 10/19 1200 99 Ventilator 40% 10/19 1200 97.3 60 18 102/70 99 Ventilator 40% 10/19 1113 40 Intake & Output 10/20 1600 10/20 0800 10/20 0000 10/19 1600 10/19 0800 10/19 0000 Intake Total 1854 439.3 0 1022 0 Output Total 200 335 50 965 Balance 1654 104.3 -50 57 0 Intake, IV 1854 439.3 1022 Intake, Oral 0 0 0 Number 0 0 0 Bowel Movements Output, 50 150 Gastric Drainage Output, Urine 150 185 50 965 Patient 158 lb 156 lb 157 lb Weight Weight Bed scale Bed scale Measurement Method Physical Exam: General Appearance intubated, alert, no specific complaints HEENT PERRLA, EOMI Neck Supple, JVP normal, carotid upstrokes normal bilaterally. No bruits heard. Cardiovascular Regular Rate, Normal S1, Normal S2, 1/6 systolic murmur Lungs scattered rhonchi bilaterally Abdomen Normal Bowel Sounds, Soft, No Tenderness Extremities Normal Pulses, trace edema Current Medications: Current Medications Sig/Ye Start time Last Medication Dose Route Stop Time Status Admin Acetaminophen 1,000 MG Q8P PRN 10/18 2215 AC IV Dextrose/Sodium 1,000 ML Q20H 10/19 1215 DC 10/19 Chloride IV 10/20 0814 1235 Dobutamine HCl 250 MG Q24H 10/19 1900 10/20 Dextrose/Water 250 ML IV 0706 Fentanyl Citrate 1,000 MCG Q13H 10/19 1600 AC 10/19 Dextrose/Water 250 ML IV 1736 Fentanyl Citrate 1,000 MCG Q24H 10/19 0200 DC 10/19 Dextrose/Water 250 ML IV 10/19 1559 0259 Furosemide 40 MG ONCE ONE 10/20 0845 DC 10/20 IV 10/20 0846 0921 Heparin Sodium 5,000 UNIT .STK-MED ONE 10/19 2244 DC (Porcine) IV 10/19 2245 Heparin Sodium 4,246 UNIT BOLUS ONE 10/19 2214 DC 10/19 (Porcine) IV 10/19 2215 2244 Heparin Sodium 5,000 UNIT .STK-MED ONE 10/19 1418 DC (Porcine) IV 10/19 1419 Heparin Sodium 4,200 UNIT ONCE ONE 10/19 1415 DC 10/19 (Porcine) IV 10/19 1416 1419 Heparin Sodium 25,000 UNIT Q24H 10/18 2130 10/19 (Porcine) IV 2047 Sodium Chloride 500 ML Insulin Human Regular 0 Q6 10/19 0045 10/20 SC 0605 Levothyroxine Sodium 100 MCG ONCE ONE 10/20 1030 UNVr IV 10/20 1031 Levothyroxine Sodium 62.5 MCG DAILY 10/19 1000 AC 10/19 IV 1107 Morphine Sulfate 2 MG Q4P PRN 10/18 2215 IV Pantoprazole Sodium 40 MG DAILY 10/19 0200 10/20 IV 0920 Phenylephrine HCl 40 MG Q24H 10/19 1815 DC Sodium Chloride 250 ML IV Potassium Chloride 20 MEQ Q1H 10/20 1015 AC IV 10/20 1116 Potassium Chloride 20 MEQ Q1H 10/20 0600 AZ 10/20 IV 10/20 0701 0809 Trimethobenzamide HCl 200 MG 4 TIMES/DAY PRN 10/19 0915 10/19 IM 0931 Results Last 48 Hrs of Labs/Mics: Laboratory Tests 10/20/17 0354: Anion Gap 11, Estimated GFR 33 L, Glucose 96, Calcium 8.7, Phosphorus 4.1, Magnesium 2.0, Total Bilirubin 0.9, AST 8 L, ALT 30, Albumin 2.9 L, TSH 147.000 H, Free T4 0.76, APTT > 120 *H, CBC w Diff NO MAN DIFF REQ, RBC 4.05 L , MCV 81.1, MCH 26.5 L, MCHC 32.7 L, RDW 17.9 H, MPV 9.3, Gran % 77.8 H, Lymphocytes % 15.6 L, Monocytes % 5.8, Eosinophils % 0.4, Basophils % 0.4, Absolute Granulocytes 6.9 H, Absolute Lymphocytes 1.4, Absolute Monocytes 0.5, Absolute Eosinophils 0, Absolute Basophils 0 10/19/172020: APTT 30 10/19/17 1300: APTT 31 10/19/175: Troponin I 0.46 *H, PT 12.6 H, INR 1.15 10/19/17414: Anion Gap 11, Estimated GFR 51 L, Glucose 78, Calcium 8.5, Phosphorus 4.2, Magnesium 1.7, Total Bilirubin 1.0, AST 16, ALT 31, [id number]-[id number] Pept 66318 H, Albumin 3.3 L, Triglycerides 181 H, Cholesterol 249 H, LDL Cholesterol, Calc 174 H, HDL Cholesterol 39 L, Cholesterol/HDL Ratio 6 H, TSH 90.600 H, Free T4 0.92, Thyroxine Binding Indx 38.4, Cortisol AM Sample 87.9 H, APTT 42 H, CBC w Diff MAN DIFF ORDERED, RBC 4.81, MCV 81.8, MCH 26.5 L, MCHC 32.4 L, RDW 17.8 H, MPV 9.4, Gran % 94.0 H, Lymphocytes % 2.9 L, Monocytes % 2.9, Eosinophils % 0.1, Basophils % 0.1, Absolute Granulocytes 12.7 H, Segmented Neutrophils 93 H, Band Neutrophils 3, Absolute Lymphocytes 0.4 L, Lymphocytes 1 L, Monocytes 3, Absolute Monocytes 0.4, Absolute Eosinophils 0, Absolute Basophils 0, Platelet Estimate ADEQUATE, Polychromasia 1+, Hypochromic- Microcytic 1+, Poikilocytosis 1+, Ovalocytes 1+, Thyroglobulin Antibody 44, Thyroid Peroxidase Ab > 1300 H, Fld Total RBCs Counted 100 10/19/17 0035: Troponin I 0.51 *H 10/19/17 0035: Lactic Acid 1.5 10/19/17 0030: Free T4 Cancelled 10/19/17 0000: Urinalysis LIGHT H, Urine Color STRAW, Urine Clarity CLEAR, Urine pH 6.0, Ur Specific [place] 1.010, Urine Protein 30 H, Urine Ketones NEG, Urine Nitrite NEG, Urine Bilirubin NEG, Urine Urobilinogen 0.2, Ur Leukocyte Esterase TRACE H , Ur Microscopic SEDIMENT EXAMINED, Urine RBC 1-3, Urine WBC 5-10 H, Ur Epithelial Cells FEW, Urine Bacteria MANY H, Hyaline Casts RARE H, Urine Mucus FEW, Urine Hemoglobin TRACE-INTACT, Urine Glucose NEG 10/18/17 2150: Urine Opiates Screen < 100, Methadone Screen < 40, Barbiturate Screen < 60, Ur Phencyclidine Scrn < 6.00, Amphetamines Screen < 100, U Benzodiazepines Scrn < 85, Urine Cocaine Screen < 50, Urine Cannabis Screen < 5.00 10/18/17 2100: pH 7.35, pCO2 37, pO2 90, HCO3 20 L, ABG O2 Sat (Measured) 96.0, Carboxyhemoglobin 3.0, O2 Concentration % 90, Respiration Rate 18, O2 Delivery Method VENT, Vent Mode AC, Expiratory Pressure 8, Tidal Volume 550, Pressure Support 0, Phlebotomy Draw Site LEFT BRACHIAL 10/18/172035: Anion Gap 14, Estimated GFR 57 L, BUN/Creatinine Ratio 25.0, Glucose 322 H, Hemoglobin A1c 5.8, Calcium 8.7, Phosphorus 6.9 H, Magnesium 1.8, Total Bilirubin 1.0, AST 26, ALT 30, Alkaline Phosphatase 95, Troponin I 0.09, Pro-B- Natriuretic Pept 02337 H, Total Protein 7.3, Albumin 4.1, Globulin 3.2, Albumin /Globulin Ratio 1.3, TSH 348.000 H, Free T4 0.43 L, Cortisol PM Sample 27.2 H , PT 12.0, INR 1.10, APTT 31, CBC w Diff NO MAN DIFF REQ, RBC 5.70 H, MCV 82.4, MCH 26.4 L, MCHC 32.1 L, RDW 17.3 H, MPV 9.3, Gran % 83.7 H, Lymphocytes % 12.2 L, Monocytes % 2.3, Eosinophils % 1.3, Basophils % 0.5, Absolute Granulocytes 9.9 H, Absolute Lymphocytes 1.4, Absolute Monocytes 0.3, Absolute Eosinophils 0.2, Absolute Basophils 0.1, Serum Alcohol < 10.0 Microbiology 10/19 0000 UPPER RESP: Surveillance Culture - COMP 10/19 GI: Surveillance Culture - COMP Assessment/Plan Assessment/Plan Assessment: 1. Hypertensive urgency -blood pressure stable today, currently only on dobutamine. 2. Elevated troponin-noted, decreasing 3. Hypothyroid-noted, continue as per endocrinology 4. Cardiomyopathy with ejection fraction 45% 5. Worsening anemia-noted, please check stools for any sign of active bleeding follow-up labs pending 6. Hypokalemia with potassium 3.1-replete as necessary. Please make sure magnesium also checked. 7. Acute renal insufficiency with increasing creatinine of breath sees 1.6 today) sees. BUN increased to 34 8. Hyperlipidemia recommendation: -Continue respiratory management as per the pulmonary service -Weaning as tolerated -Continue dobutamine for another 24 hours -In view of increasing creatinine, and improving chest x-ray despite mildly positive fluid balance, I would hold off on any further diuresis for now. -Replete magnesium and potassium as necessary -Follow-up labs in the morning -Check stool for occult blood to rule out any possibility of occult bleeding -Further plans after the above Continue telemetry? Yes
[2017-10-20 13:32] LABS: PTT > 120 SEC (25-37)
[2017-10-20 16:00] VITALS: BP 142/76
[2017-10-20 22:26] LABS: PTT 68 SEC (25-37)
[2017-10-21] VITALS: BP 142/72
--- NOTE | 2017-10-21 01:04 | PN- Resident CRCU ---
Subjective HPI/CRCU Issues: 1) hypoxic respiratory failure-resolved 2) MyXedema coma 3) ST seg horizental depression 4)hypertension usrgency Patient was visited and examined this morning. She was extubated yesterday. Lying comfortably in her bed not in acute distress. Uses full sentences for communication. Complains of mild soreness in her throat after removal of the ET tube. Reports productive cough with yellow greenish sputum. Urinary Pathak catheter in place. Life-support: #1 the vitamin drip was held due to hypertensive crisis #2 increasing supports patient was extubated yesterday Patient has left subclavian central line- no erythema or drainage around On heparin drip for elevated troponin and atrial fibrillation 24 Hour Events: patient had elevated blood pressure up to 190s SBP, remained asymptomatic. Dobutamine drip was held. No events noted available [employer] attending was not informed Vital signs: Remains stable of dobutamine Status post extubation; comfortable in room air Fluid balance for the past 24 hours: 2800/ 639 Total fluid balance: Almost 6000 ML input/ 4500 mL output Labs sodium 134, potassium 3.8, BUN 26, creatinine 1.1 (from creatinine 1.4 yesterday), albumin improved 3.2 TSH 99.700 from 147,000, WBC 7.5, H&H: 10.4/32 platelet count 170, Chest x-ray today on 10/21/2017 Persistent left lower lobe consolidation and/or atelectasis with small left pleural effusion. The basilar opacity appears worse compared to 10/20/2017. Objective Vital Signs & I&O Last 8 Hrs of Vitals and I&O: Orders Procedure Date/time Status PARTIAL THROMBOPLASTIN TIME 10/21 1630 Active PARTIAL THROMBOPLASTIN TIME 10/21 0900 Complete Pathak, Insertion/Removal/Asses 10/21 0823 Active THYROID STIMULATING HORMONE 10/21 0500 Complete ICU LAB BUNDLE 10/21 0500 Complete FREE T4 10/21 0500 Complete CBC WITHOUT DIFFERENTIAL 10/21 0500 Complete THERAPIST ORDERS 10/21 0026 Complete PT Evaluate & Treat 10/21 UNK Active Transfer patient to 10/21 UNK Active FingerStick- Glucose 10/21 UNK Active EKG 10/21 UNK Active Consistent Carbohydrate 1 10/20 D Active PARTIAL THROMBOPLASTIN TIME 10/20 2100 Complete ICU LAB BUNDLE 10/20 1800 Complete Pathak, Insertion/Removal/Asses 10/20 1541 Active EXTUBATE 10/20 1327 Complete ARTERIAL BLOOD GAS (GEN) 10/20 1230 Complete PARTIAL THROMBOPLASTIN TIME 10/20 1200 Complete VENTILATOR WEANING PARAMETERS 10/20 1012 Complete THYROID STIMULATING HORMONE 10/20 0500 Complete ICU LAB BUNDLE 10/20 0500 Complete FREE T4 10/20 0500 Complete CBC WITHOUT DIFFERENTIAL 10/20 0500 Complete PARTIAL THROMBOPLASTIN TIME 10/20 0400 Complete OXYGEN SETUP (GEN) 10/20 UNK Complete Nothing by Mouth 10/19 B Complete EKG 10/19 2357 Active PARTIAL THROMBOPLASTIN TIME 10/19 2000 Complete Lab Add-on Test 10/19 1624 Active PARTIAL THROMBOPLASTIN TIME 10/19 1245 Complete Restraint- Medical 10/19 1209 Complete LOWER RESPIRATORY CULTURE 10/19 1205 Complete VENTILATOR PARAMETERS 10/19 1113 Complete Drains/Tubes 10/19 0930 Complete VENTILATOR PARAMETERS 10/19 0840 Complete Heparin Drip- ACS 10/19 0828 Active THYROID STIMULATING HORMONE 10/19 0500 Complete T3 UPTAKE (THYROXINE BIND CAP) 10/19 0500 Complete LIPID PANEL 10/19 0500 Complete ICU LAB BUNDLE 10/19 0500 Complete FREE T4 10/19 0500 Complete CORTISOL AM 10/19 0500 Complete CBC WITHOUT DIFFERENTIAL 10/19 0500 Complete THYROID ANTIBODY PANEL 10/19 0500 Complete B-TYPE NATRIURETIC PEP (BNP) 10/19 0415 Complete TROPONIN LEVEL 10/19 0400 Complete PARTIAL THROMBOPLASTIN TIME 10/19 0400 Complete PROTHROMBIN TIME 10/19 0400 Complete EKG 10/19 0400 Active VENTILATOR PARAMETERS 10/19 0337 Complete VENTILATOR PARAMETERS 10/19 0040 Complete VRE ACTIVE SURVIELLANCE 10/19 0010 Complete ACTIVE SURVEILLANCE NARES 10/19 0010 Complete VENTILATOR PARAMETERS 10/19 UNK Complete Lab Add-on Test 10/19 UNK Active Restraint- Medical 10/19 UNK Complete Nursing Misc 10/19 UNK Active Hemoccult 10/19 UNK Active FingerStick- Glucose 10/19 UNK Complete FingerStick- Glucose 10/19 UNK Active Pathak, Insertion/Removal/Asses 10/19 UNK Complete TROPONIN LEVEL 10/18 2355 Complete EKG 10/18 2355 Active Weight 10/18 2245 Active Turn and Reposition 10/18 2244 Active Teach/Educate 10/18 2244 Active Skin Integrity Protocol 10/18 2244 Active Skin/Pressure Ulcer Assess (Sk 10/18 2244 Active Precautions 10/18 2244 Active Pain Treatment and Response 10/18 2244 Active Nutritional Intake, Monitor 10/18 2244 Active Isolation 10/18 2244 Active Patient Care Conference 10/18 2244 Active Activity/Ambulation 10/18 2244 Active Saline Lock 10/18 2217 Active Pathway - chart 10/18 2217 Active House Staff 10/18 2217 Active CULTURE,URINE 10/18 2217 Complete BLOOD CULTURE 10/18 2217 Active URINALYSIS 10/18 2217 Complete LACTIC ACID 10/18 2217 Complete Code Status 10/18 2217 Active TYPE & SCREEN (NOT X-MATCH) 10/18 2217 Complete Intake & Output 10/18 2212 Active VENTILATOR PARAMETERS 10/18 2199 Complete VENTILATOR PARAMETERS 10/19 2127 Complete Patient Data 10/18 2109 Active Admit to inpatient 10/18 2104 Active EKG 10/18 2044 Active THYROID STIMULATING HORMONE 10/19 2035 Complete PARTIAL THROMBOPLASTIN TIME 10/19 2035 Complete PROTHROMBIN TIME 10/19 2035 Complete PHOSPHORUS 10/19 2035 Complete GLYCOSYLATED HGB 10/19 2035 Complete FREE T4 10/19 2035 Complete CORTISOL PM 10/19 2035 Complete B-TYPE NATRIURETIC PEP (BNP) 10/19 2035 Complete VENTILATOR PARAMETERS 10/19 2031 Complete EKG 10/18 2006 Active ARTERIAL BLOOD GAS (GEN) 10/18 2000 Complete Telemetry/Client Account Specialist 10/18 2000 Active URINE DRUG SCREEN FOR ER ONLY 10/18 2000 Complete TROPONIN LEVEL 10/18 2000 Complete MAGNESIUM 10/18 2000 Complete ETHANOL 10/18 2000 Complete COMPREHENSIVE METABOLIC PANEL 10/18 2000 Complete CBC WITHOUT DIFFERENTIAL 10/18 2000 Complete EKG 10/18 1947 Active OXYGEN SETUP CHG 10/18 UNK Complete OXYGEN 10/18 UNK Complete OXYGEN TRANSPORT 10/18 UNK Complete AIRWAY MANAGEMENT EXTEND CARE 10/18 UNK Complete Lab Add-on Test 10/18 UNK Active VTE Mechanical Prophylaxis 10/18 UNK Active Vital Signs 10/18 UNK Active Intake & Output 10/18 UNK Active Vital Signs Date Time Temp Pulse Resp B/P B/P Pulse O2 O2 Flow FiO2 Mean Ox Delivery Rate 10/21 0800 95 Room Air 10/21 0800 97.6 66 21 140/80 95 Room Air 10/21 0400 97 Nasal 2.0L Cannula 10/21 0000 97 Nasal 2.0L Cannula 10/21 0000 98.8 75 24 142/72 97 Nasal 2.0L Cannula 10/21 1999 96 Nasal 3.0L Cannula 10/20 1901 97.8 72 23 105/58 03/ 1600 98 Nasal 3.0L Cannula 10/20 1600 99.1 76 18 142/76 98 Nasal 2.0L Cannula / 1200 97 Ventilator 35% 03/17 1144 35 03/17 0857 35 03/17 0800 98 Ventilator 35% 03/17 0800 98.1 66 20 120/70 98 Ventilator 35% 03/17 0706 65 131/62 03/17 0618 35 03/17 0400 98 Ventilator 35% 03/17 0345 35 03/17 0100 35 03/ 0000 98 Ventilator 35% 03/17 0000 99.5 65 25 112/68 98 Ventilator 35% 03/16 2210 35 03/16 2030 56 103/64 0316 1999 98 Ventilator 35% 03/16 1910 35 03/16 1606 98.1 03/16 1600 35 03/16 1529 99 Ventilator 03/16 1529 60 18 100/71 97 Ventilator 03/16 1406 40 03/16 1200 99 Ventilator 40% 03/16 1200 97.3 60 18 102/70 99 Ventilator 40% 03/16 1113 40 03/16 0840 45 03/16 0800 99 Ventilator 50% 03/16 0800 98.2 65 18 94/70 99 Ventilator 50% 03/16 0620 50 03/16 0400 95 Ventilator 50% 03/16 0338 50 03/16 0334 65 03/16 0040 65 03/16 0037 75 03/16 0000 99 Ventilator 65% 03/15 2300 97.7 62 18 60/40 96 Ventilator 75% 03/15 2300 95 Ventilator 75% 03/15 2249 72 168/84 /15 2244 97.1 87 20 196/100 95 Ventilator 03/15 2242 75 /15 2140 65 102/60 /15 2130 66 74/56 15 2051 70 138/86 10/18 2042 110 144/96 10/18 2038 100 18 144/96 95 Ventilator 75% /15 2032 Ventilator /15 2020 118 222/146 10/18 2008 122 262/176 15 1950 60 Last 24 Hours I&Os 03/18 1600 10/21 0800 10/21 0000 Intake Total 699.3 382.4 Output Total 450 1000 Balance 249.3 -617.6 Intake, IV 359.3 382.4 Intake, Oral 340 Number 0 Bowel Movements Output, Urine 450 1000 Patient 159 lb Weight Weight Bed scale Measurement Method Laboratory Tests 10/21/17 0853: APTT 57 H 10/21/17 0427: Anion Gap 10, Estimated GFR 51 L, Glucose 76, Calcium 8.8, Phosphorus 4.4, Magnesium 1.7, Total Bilirubin 1.1, AST 10 L, ALT 19, Albumin 3.2 L, TSH 99.700 H, Free T4 0.73, CBC w Diff NO MAN DIFF REQ, RBC 3.90 L, MCV 82.0, MCH 26.5 L, MCHC 32.3 L, RDW 17.9 H, MPV 9.7, Gran % 78.3 H, Lymphocytes % 12.0 L, Monocytes % 6.8, Eosinophils % 1.2, Basophils % 1.7, Absolute Granulocytes 5.9, Absolute Lymphocytes 0.9 L, Absolute Monocytes 0.5, Absolute Eosinophils 0.1, Absolute Basophils 0.1 10/20/17 2104: APTT 68 H 10/20/17 1800: Anion Gap 7, Estimated GFR 39 L, Glucose 82, Calcium 8.5, Phosphorus 4.5, Magnesium 1.6, Total Bilirubin 1.0, AST 8 L, ALT 31, Albumin 3.2 L 10/20/17 1230: pH 7.46 H, pCO2 30 L, pO2 145 H, HCO3 21, ABG O2 Sat (Measured) 98.0, P-50 ( Temp Corrected) N, Carboxyhemoglobin 0.3 L, O2 Concentration % 35%, Respiration Rate 19, O2 Delivery Method VENT, Vent Mode CPAP/PSV TRIAL, Expiratory Pressure 5, Tidal Volume 574, Pressure Support 6, Phlebotomy Draw Site RIGHT BRACHIAL 10/20/17 1200: APTT > 120 *H Microbiology Date/Time Procedure - Status Source Growth 10/19 1210 Respiratory Culture - COMP LOWER RESP 10/19 1210 Gram Stain - COMP LOWER RESP 10/19 0000 Urine Culture - COMP URINE ROUT ESCHERICHIA COLI 10/19 0000 Surveillance Culture - COMP UPPER RESP 10/19 0000 Surveillance Culture - COMP GI 10/18 2349 Blood Culture - RES BLOOD Orders Procedure Date/time Status PARTIAL THROMBOPLASTIN TIME 10/21 1630 Active PARTIAL THROMBOPLASTIN TIME 10/21 0900 Complete Pathak, Insertion/Removal/Asses 10/21 0823 Active THYROID STIMULATING HORMONE 10/21 0500 Complete ICU LAB BUNDLE 10/21 0500 Complete FREE T4 10/21 0500 Complete CBC WITHOUT DIFFERENTIAL 10/21 0500 Complete THERAPIST ORDERS 10/21 0026 Complete PT Evaluate & Treat 10/21 UNK Active Transfer patient to 10/21 UNK Active FingerStick- Glucose 10/21 UNK Active EKG 10/21 UNK Active Consistent Carbohydrate 1 10/20 D Active PARTIAL THROMBOPLASTIN TIME 10/20 2100 Complete ICU LAB BUNDLE 10/20 1800 Complete Pathak, Insertion/Removal/Asses 10/20 1541 Active EXTUBATE 10/20 1327 Complete ARTERIAL BLOOD GAS (GEN) 10/20 1230 Complete PARTIAL THROMBOPLASTIN TIME 10/20 1200 Complete VENTILATOR WEANING PARAMETERS 10/20 1012 Complete THYROID STIMULATING HORMONE 10/20 0500 Complete ICU LAB BUNDLE 10/20 0500 Complete FREE T4 10/20 0500 Complete CBC WITHOUT DIFFERENTIAL 10/20 0500 Complete PARTIAL THROMBOPLASTIN TIME 10/20 0400 Complete OXYGEN SETUP (GEN) 10/20 UNK Complete Nothing by Mouth 10/19 B Complete EKG 10/19 2357 Active PARTIAL THROMBOPLASTIN TIME 10/19 2000 Complete Lab Add-on Test 10/19 1624 Active PARTIAL THROMBOPLASTIN TIME 10/19 1245 Complete Restraint- Medical 10/19 1209 Complete LOWER RESPIRATORY CULTURE 10/19 1205 Complete VENTILATOR PARAMETERS 10/19 1113 Complete Drains/Tubes 10/19 0930 Complete VENTILATOR PARAMETERS 10/19 0840 Complete Heparin Drip- ACS 10/19 0828 Active THYROID STIMULATING HORMONE 10/19 0500 Complete T3 UPTAKE (THYROXINE BIND CAP) 10/19 0500 Complete LIPID PANEL 10/19 0500 Complete ICU LAB BUNDLE 10/19 0500 Complete FREE T4 10/19 0500 Complete CORTISOL AM 10/19 0500 Complete CBC WITHOUT DIFFERENTIAL 10/19 0500 Complete THYROID ANTIBODY PANEL 10/19 0500 Complete B-TYPE NATRIURETIC PEP (BNP) 10/19 0415 Complete TROPONIN LEVEL 10/19 0400 Complete PARTIAL THROMBOPLASTIN TIME 10/19 0400 Complete PROTHROMBIN TIME 10/19 0400 Complete EKG 10/19 0400 Active VENTILATOR PARAMETERS 10/19 0337 Complete VENTILATOR PARAMETERS 10/19 0040 Complete VRE ACTIVE SURVIELLANCE 10/19 0010 Complete ACTIVE SURVEILLANCE NARES 10/19 0010 Complete VENTILATOR PARAMETERS 10/19 UNK Complete Lab Add-on Test 10/19 UNK Active Restraint- Medical 10/19 UNK Complete Nursing Misc 10/19 UNK Active Hemoccult 10/19 UNK Active FingerStick- Glucose 10/19 UNK Complete FingerStick- Glucose 10/19 UNK Active Pathak, Insertion/Removal/Asses 10/19 UNK Complete TROPONIN LEVEL 10/18 2355 Complete EKG 10/18 2355 Active Weight 10/18 224 Active Turn and Reposition 10/18 224 Active Teach/Educate 10/18 2244 Active Skin Integrity Protocol 10/18 2244 Active Skin/Pressure Ulcer Assess (Sk 10/18 2244 Active Precautions 10/18 2244 Active Pain Treatment and Response 10/18 2244 Active Nutritional Intake, Monitor 10/18 2244 Active Isolation 10/18 2244 Active Patient Care Conference 10/18 2244 Active Activity/Ambulation 10/18 2244 Active Saline Lock 10/18 221 Active Pathway - chart 10/18 2217 Active House Staff 10/18 2217 Active CULTURE,URINE 10/18 2217 Complete BLOOD CULTURE 10/18 2217 Active URINALYSIS 10/18 2217 Complete LACTIC ACID 10/18 2217 Complete Code Status 10/18 2217 Active TYPE & SCREEN (NOT X-MATCH) 10/18 2217 Complete Intake & Output 10/18 2212 Active VENTILATOR PARAMETERS 10/18 2199 Complete VENTILATOR PARAMETERS 10/19 2127 Complete Patient Data 10/18 2109 Active Admit to inpatient 10/18 2104 Active EKG 10/18 2044 Active THYROID STIMULATING HORMONE 10/19 2035 Complete PARTIAL THROMBOPLASTIN TIME 10/19 2035 Complete PROTHROMBIN TIME 10/19 2035 Complete PHOSPHORUS 10/19 2035 Complete GLYCOSYLATED HGB 10/19 2035 Complete FREE T4 10/19 2035 Complete CORTISOL PM 10/19 2035 Complete B-TYPE NATRIURETIC PEP (BNP) 10/19 2035 Complete VENTILATOR PARAMETERS 10/19 2031 Complete EKG 10/18 2006 Active ARTERIAL BLOOD GAS (GEN) 10/18 2000 Complete Telemetry/Client Account Specialist 10/18 2000 Active URINE DRUG SCREEN FOR ER ONLY 10/18 2000 Complete TROPONIN LEVEL 10/18 2000 Complete MAGNESIUM 10/18 2000 Complete ETHANOL 10/18 2000 Complete COMPREHENSIVE METABOLIC PANEL 10/18 2000 Complete CBC WITHOUT DIFFERENTIAL 10/18 2000 Complete EKG 10/18 1947 Active OXYGEN SETUP CHG 10/18 UNK Complete OXYGEN 10/18 UNK Complete OXYGEN TRANSPORT 10/18 UNK Complete AIRWAY MANAGEMENT EXTEND CARE 10/18 UNK Complete Lab Add-on Test 10/18 UNK Active VTE Mechanical Prophylaxis 10/18 UNK Active Vital Signs 10/18 UNK Active Intake & Output 10/18 UNK Active Intake & Output 10/21 1600 Intake Total Output Total Balance Patient 159 lb Weight Weight Bed scale Measurement Method Exam General Appearance: no apparent distress, alert, awake, comfortable Head: atraumatic Ears, Nose, Throat: poor oral hygiene, poor denture Neck: normal inspection, supple, full range of motion, left subclavian central line Respiratory: lateral rales and rhonchi Cardiovascular: irregularly irregular, no murmur Extremities: mild bilateral pitting edema lower extremities, left upper extremity proximal swelling Impression/Plan Impression/Problem List Impression: This is a 57-year-old woman was admitted for myxedema coma, NSTEMI and acute decompensated heart failure and pulmonary edema and hypertension urgency. Was a started on dobutamine drip and cautious diuresis as her pressure tolerates. Overnight patient had increased systolic blood pressure 190 medical house staff stop the dobutamine law office assistant was not informed. Respiratory #Acute hypoxemic respiratory failure- resolved - Extubated patient is breathing comfortably in room air - Patient is extubated in room air. Persistent left lower lung perfusion and consolidation a chest x-ray from 10/20/2017, patient is a febrile without leukocytosis complains of persistent productive cough. -Repeat chest x-ray showed mild left-sided pleural effusion and persistent, worsening consolidation Infection #Leukocytosis Likely reactive. Patient remains afebrile without complaints. - will watch off antibiotics - follow up blood and urine culture - continue to monitor vitals - repeat CBC in am Cardiology #Congestive heart failure - Stable vital signs of dobutamine mild pleural effusion and interstitial pulmonary edema -1 dose of IV Lasix push was given - ECHO needs to be read -After discussing with her law office assistant patient was downgraded to telemetry # TN type 1 vs type II Troponin peaked at 0.51. EKG showed ST elevations which have showed improvement. Most possibly type II TN in the setting of severe physiologic stress. needs outpatient follow-up with a law office assistant for nuclear perfusion scan #Hypertensive emergency - stable - No antihypertensives at this time as patient is hypotensive requiring pressor support Hematology #Anti-phospholipid antibody syndrome Patient has a history of miscarriages. Patient was on aspirin years prior which she stopped due to epistaxis and gum bleeding. Patient is at high risk of clotting. - Continue IV heparin and aspirin Metabolic #Hypothyroidism - TSH improved to 99 from 147 -Synthroid was converted to by mouth he could balance 125 MCG daily Alimentary - Carbohydrate consistent diet -Insulin sliding scale 3 times a day before meals and at bedtime Nephrology #Elevated creatinine - Creatinine improved -Lawson was DC'd DVT prophylaxis On IV heparin Code Status Full code Problem List: 1. Acute respiratory failure 2. Cardiac ischemia 3. Pulmonary edema Pain Ratin Tomorrow's Labs & Rationales: C BC and BEP Heparin therapy Acute kidney injury Plan DVT/Prophylaxis: mechanical, pharmacological DVT/Prophylaxis: mechanical, pharmacological
[2017-10-21 05:33] LABS: ABSOLUTE BASOPHIL COUNT 0.1 /CUMM (0.0-0.2); ABSOLUTE EOSINOPHIL COUNT 0.1 /CUMM (0.0-0.7); ABSOLUTE GRANULOCYTE CT 5.9 /CUMM (1.4-6.5); ABSOLUTE LYMPH COUNT 0.9 /CUMM (1.2-3.4); ABSOLUTE MONOCYTE COUNT 0.5 /CUMM (0.10-0.60); BASOPHIL % 1.7 % (0.0-2.0); EOSINOPHIL % 1.2 % (0-5); GRANULOCYTE % 78.3 % (42.2-75.2); MEAN CORPUSCULAR HGB 26.5 PG (27.0-31.0); MEAN CORPUSCULAR HGB CONC 32.3 G/DL (33.0-37.0); MEAN PLATELET VOLUME 9.7 FL (7.4-10.4); PLATELET COUNT 170 /CUMM (130-400); RBC DISTRIBUTION WIDTH 17.9 % (11.5-14.5); WHITE BLOOD CELL COUNT 7.5 /CUMM (4.8-10.8)
[2017-10-21 08:00] VITALS: BP 140/80
--- NOTE | 2017-10-21 09:11 | PN- CRCU ---
Subjective HPI/Critical Care Issues: She is awake alert and was able to be extubated yesterday oxygen saturations are excellent on room air Objective Current Medications: Current Medications Sig/Ye Start time Last Medication Dose Route Stop Time Status Admin Acetaminophen 1,000 MG Q8P PRN 10/18 2215 IV Dobutamine HCl 250 MG Q24H 10/19 1900 AC 10/20 Dextrose/Water 250 ML IV 1901 Fentanyl Citrate 1,000 MCG Q13H 10/19 1600 IA 10/19 Dextrose/Water 250 ML IV 1736 Heparin Sodium 25,000 UNIT Q24H 10/18 2130 10/19 (Porcine) IV 2047 Sodium Chloride 500 ML Insulin Human Regular 0 Q6 10/21 0600 AC SC Insulin Human Regular 0 Q6 10/19 0045 DC 10/20 SC 0605 Levothyroxine Sodium 100 MCG ONCE ONE 10/20 1030 CAN IV 10/20 1031 Levothyroxine Sodium 62.5 MCG DAILY 10/19 1000 AC 10/20 IV 1103 Morphine Sulfate 2 MG Q4P PRN 10/18 2215 IV Pantoprazole Sodium 40 MG DAILY 10/19 0200 10/20 IV 0920 Potassium Chloride 20 MEQ Q1H 10/20 1015 DC 10/20 IV 10/20 1116 1337 Trimethobenzamide HCl 200 MG 4 TIMES/DAY PRN 10/19 0915 10/19 IM 0931 Vital Signs & I&O Last 24 Hrs of Vitals and I&O: Vital Signs Date Time Temp Pulse Resp B/P B/P Pulse O2 O2 Flow FiO2 Mean Ox Delivery Rate 10/21 0400 97 Nasal 2.0L Cannula 10/21 0000 97 Nasal 2.0L Cannula 10/21 0000 98.8 75 24 142/72 97 Nasal 2.0L Cannula 10/20 2000 96 Nasal 3.0L Cannula 10/20 1901 97.8 72 23 105/58 10/20 1600 98 Nasal 3.0L Cannula 10/20 1600 99.1 76 18 142/76 98 Nasal 2.0L Cannula 10/20 1200 97 Ventilator 35% 10/20 1144 35 Intake & Output 10/21 1600 10/21 0800 10/21 0000 Intake Total 699.3 382.4 Output Total 450 1000 Balance 249.3 -617.6 Intake, IV 359.3 382.4 Intake, Oral 340 Number 0 Bowel Movements Output, Urine 450 1000 Exam for chest shows somewhat diminished breath sounds at the bases there are no wheezes or crackles cardiac exam shows a regular S1 and S2 without murmurs Impression/Plan Impression/Plan Impression/Plan: 67-year-old woman with hypoxic respiratory failure now status post extubation has markedly improved respiratory status Recommendations: Taper FiO2 his saturations allow inceptive spirometry. Further management of her pulmonary edema per cardiology
--- NOTE | 2017-10-21 09:13 | PN- Endocrinology ---
Assessment/Plan Endoscopy Assessment: The patient is extubated. She feels much better this morning. She will be eating her breakfast. She still has some congestion in her lungs and is coughing up sputum. The patient has more than one autoimmune disease. In addition to her thyroid, she states she has had antiphospholipid syndrome treated just with aspirin in the past and has been treated for psoriasis. The patient is on IV levothyroxine 62.5 mcg daily. Her free T4 this morning is 0.73 and her TSH is 99.7. Her blood sugars have been normal. Plan: Suggest that we can convert the patient's thyroid hormone replacement to levothyroxine 125 mcg p.o. daily. Repeat chest x-ray revealed possible pneumonia left base. Continue IV heparin. Subjective Subjective: Feels improved Review of Systems Constitutional: Denies: chills, fever. Cardiovascular: Denies: chest pain. Respiratory: Denies: cough, short of breath. Gastrointestinal: Denies: abdominal pain, nausea, vomiting. Objective Last 24 Hrs of Vital Signs/I&O Vital Signs Date Time Temp Pulse Resp B/P B/P Pulse O2 O2 Flow FiO2 Mean Ox Delivery Rate 10/21 0400 97 Nasal 2.0L Cannula 10/21 0000 97 Nasal 2.0L Cannula 10/21 0000 98.8 75 24 142/72 97 Nasal 2.0L Cannula 10/21 1999 96 Nasal 3.0L Cannula 10/20 190 97.8 72 23 105/58 10/20 1600 98 Nasal 3.0L Cannula 10/20 1600 99.1 76 18 142/76 98 Nasal 2.0L Cannula 10/20 1200 97 Ventilator 35% 10/20 1144 35 Intake & Output 10/21 1600 10/21 0800 10/21 0000 Intake Total 699.3 382.4 Output Total 450 1000 Balance 249.3 -617.6 Intake, IV 359.3 382.4 Intake, Oral 340 Number 0 Bowel Movements Output, Urine 450 1000 Vital Signs Date Time Temp Pulse Resp B/P B/P Pulse O2 O2 Flow FiO2 Mean Ox Delivery Rate 10/21 0400 97 Nasal 2.0L Cannula 10/21 0000 97 Nasal 2.0L Cannula 10/21 0000 98.8 75 24 142/72 97 Nasal 2.0L Cannula 10/21 1999 96 Nasal 3.0L Cannula 10/20 190 97.8 72 23 105/58 10/20 1600 98 Nasal 3.0L Cannula 10/20 1600 99.1 76 18 142/76 98 Nasal 2.0L Cannula 10/20 1200 97 Ventilator 35% 10/20 1144 35 Intake & Output 10/21 1600 10/21 0800 10/21 0000 Intake Total 699.3 382.4 Output Total 450 1000 Balance 249.3 -617.6 Intake, IV 359.3 382.4 Intake, Oral 340 Number 0 Bowel Movements Output, Urine 450 1000 Physical Exam General Appearance: alert, awake, comfortable Head: normal appearance Neck: normal inspection Respiratory: normal breath sounds Cardiovascular: regular rate/rhythm Extremities: normal inspection Current Medications: Current Medications Sig/Ye Start time Last Medication Dose Route Stop Time Status Admin Acetaminophen 1,000 MG Q8P PRN 10/18 2215 IV Dobutamine HCl 250 MG Q24H 10/19 1900 DC 10/20 Dextrose/Water 250 ML IV 1901 Fentanyl Citrate 1,000 MCG Q13H 10/19 1600 DC 10/19 Dextrose/Water 250 ML IV 1736 Heparin Sodium 25,000 UNIT Q24H 10/18 2130 AC 10/19 (Porcine) IV 2047 Sodium Chloride 500 ML Insulin Human Regular 0 Q6 10/21 0600 AC SC Insulin Human Regular 0 Q6 10/19 0045 DC 10/20 SC 0605 Levothyroxine Sodium 0.125 MG DAILY AC 10/21 0911 PO Levothyroxine Sodium 100 MCG ONCE ONE 10/20 1030 CAN IV 10/20 1031 Levothyroxine Sodium 62.5 MCG DAILY 10/19 1000 DC 10/20 IV 1103 Morphine Sulfate 2 MG Q4P PRN 10/18 2215 AC IV Pantoprazole Sodium 40 MG DAILY 10/19 0200 AC 10/20 IV 0920 Potassium Chloride 20 MEQ Q1H 10/20 1015 DC 10/20 IV 10/20 1116 1337 Trimethobenzamide HCl 200 MG 4 TIMES/DAY PRN 10/19 0915 AC 10/19 IM 0931 Results Pertinent Lab/Brian Results: Laboratory Tests 10/21 10/21 10/20 10/20 0853 0427 2104 1800 Chemistry Sodium (137 - 145 mmol/L) 134 L 136 L Potassium (3.5 - 5.1 mmol/L) 3.8 3.5 Chloride (98 - 107 mmol/L) 101 103 Carbon Dioxide (22 - 30 mmol/L) 24 26 Anion Gap (5 - 16) 10 7 BUN (7 - 17 mg/dL) 26 H 30 H Creatinine (0.5 - 1.0 mg/dL) 1.1 H 1.4 H Estimated GFR (>60 ml/min) 51 L 39 L Glucose (65 - 99 mg/dL) 76 82 Calcium (8.4 - 10.2 mg/dL) 8.8 8.5 Phosphorus (2.5 - 4.5 mg/dL) 4.4 4.5 Magnesium (1.6 - 2.3 mg/dL) 1.7 1.6 Total Bilirubin (0.2 - 1.3 mg/dL) 1.1 1.0 AST (14 - 36 U/L) 10 L 8 L ALT (9 - 52 U/L) 19 31 Albumin (3.5 - 5.0 g/dL) 3.2 L 3.2 L TSH (0.270 - 4.200 uIU/mL) 99.700 H Free T4 (0.64 - 1.79 ng/dL) 0.73 Coagulation APTT (25 - 37 SEC) Pending 68 H Hematology CBC w Diff NO MAN DIFF REQ WBC (4.8 - 10.8 /CUMM) 7.5 RBC (4.20 - 5.40 /CUMM) 3.90 L Hgb (12.0 - 16.0 G/DL) 10.4 L Hct (37 - 47 %) 32.0 L MCV (81.0 - 99.0 FL) 82.0 MCH (27.0 - 31.0 PG) 26.5 L MCHC (33.0 - 37.0 G/DL) 32.3 L RDW (11.5 - 14.5 %) 17.9 H Plt Count (130 - 400 /CUMM) 170 MPV (7.4 - 10.4 FL) 9.7 Gran % (42.2 - 75.2 %) 78.3 H Lymphocytes % (20.5 - 51.1 %) 12.0 L Monocytes % (1.7 - 9.3 %) 6.8 Eosinophils % (0 - 5 %) 1.2 Basophils % (0.0 - 2.0 %) 1.7 Absolute Granulocytes (1.4 - 6.5 /CUMM) 5.9 Absolute Lymphocytes (1.2 - 3.4 /CUMM) 0.9 L Absolute Monocytes (0.10 - 0.60 /CUMM) 0.5 Absolute Eosinophils (0.0 - 0.7 /CUMM) 0.1 Absolute Basophils (0.0 - 0.2 /CUMM) 0.1 10/20 10/20 1230 1200 Blood Gas pH (7.35 - 7.45 PH) 7.46 H pCO2 (35 - 45 TORR) 30 L pO2 (80 - 100 TORR) 145 H HCO3 (21 - 28 MEQ/L) 21 ABG O2 Sat (Measured) (>96.0 %) 98.0 P-50 (Temp Corrected) N Carboxyhemoglobin (1.5 - 5.0 %) 0.3 L O2 Concentration % 35% Respiration Rate (BPM) 19 O2 Delivery Method VENT Vent Mode CPAP/PSV TRIAL Expiratory Pressure (CMH2O/P) 5 Tidal Volume (CC) 574 Pressure Support (CMH2O/P) 6 Coagulation APTT (25 - 37 SEC) > 120 *H Miscellaneous Phlebotomy Draw Site RIGHT BRACHIAL
--- NOTE | 2017-10-21 09:19 | PN- Cardiology ---
Subjective Subjective: Doing okay today. Asked patient did successfully. No new issues. Dobutamine was discontinued overnight due to transient hypertension. 2 brief episodes of nonsustained VT also noted. Remains hemodynamic stable off pressors. Objective Vital Signs and I&Os Vital Signs Date Time Temp Pulse Resp B/P B/P Pulse O2 O2 Flow FiO2 Mean Ox Delivery Rate 10/21 0400 97 Nasal 2.0L Cannula 10/21 0000 97 Nasal 2.0L Cannula 10/21 0000 98.8 75 24 142/72 97 Nasal 2.0L Cannula 10/20 2000 96 Nasal 3.0L Cannula 10/20 1901 97.8 72 23 105/58 10/20 1600 98 Nasal 3.0L Cannula 10/20 1600 99.1 76 18 142/76 98 Nasal 2.0L Cannula 10/20 1200 97 Ventilator 35% 10/20 1144 35 Intake & Output 10/21 1600 10/21 0800 10/21 0000 10/20 1600 10/20 0800 10/20 0000 Intake Total 699.3 382.4 984 1854 439.3 Output Total 450 1000 1475 200 335 Balance 249.3 -617.6 -491 1654 104.3 Intake, IV 359.3 382.4 984 1854 439.3 Intake, Oral 340 0 Number 0 0 0 Bowel Movements Output, 150 50 150 Gastric Drainage Output, Urine 450 1000 1325 150 185 Patient 158 lb Weight Weight Bed scale Measurement Method Physical Exam: General Appearance alert and oriented, extubated, no specific complaints HEENT PERRLA, EOMI Neck Supple, JVP normal, carotid upstrokes normal bilaterally. No bruits heard. Cardiovascular Regular Rate, Normal S1, Normal S2, 1/6 systolic murmur Lungs scattered rhonchi bilaterally Abdomen Normal Bowel Sounds, Soft, No Tenderness Extremities Normal Pulses, trace edema Current Medications: Current Medications Sig/Ye Start time Last Medication Dose Route Stop Time Status Admin Acetaminophen 1,000 MG Q8P PRN 10/18 2215 AC IV Dobutamine HCl 250 MG Q24H 10/19 1900 DC 10/20 Dextrose/Water 250 ML IV 190 Fentanyl Citrate 1,000 MCG Q13H 10/19 1600 DC 10/19 Dextrose/Water 250 ML IV 173 Heparin Sodium 25,000 UNIT Q24H 10/18 2130 AC 10/19 (Porcine) IV 204 Sodium Chloride 500 ML Insulin Human Regular 0 Q6 10/21 0600 AC SC Insulin Human Regular 0 Q6 10/19 0045 DC 10/20 SC 0605 Levothyroxine Sodium 0.125 MG DAILY AC 10/21 0911 AC PO Levothyroxine Sodium 100 MCG ONCE ONE 10/20 1030 CAN IV 10/20 1031 Levothyroxine Sodium 62.5 MCG DAILY 10/19 1000 DC 10/20 IV 1103 Morphine Sulfate 2 MG Q4P PRN 10/18 2215 AC IV Pantoprazole Sodium 40 MG DAILY 10/19 0200 AC 10/20 IV 0920 Potassium Chloride 20 MEQ Q1H 10/20 1015 DC 10/20 IV 10/20 1116 1337 Trimethobenzamide HCl 200 MG 4 TIMES/DAY PRN 10/19 0915 AC 10/19 IM 0931 Results Last 48 Hrs of Labs/Mics: Laboratory Tests 10/21/17 0853: APTT Pending 10/21/17 0427: Anion Gap 10, Estimated GFR 51 L, Glucose 76, Calcium 8.8, Phosphorus 4.4, Magnesium 1.7, Total Bilirubin 1.1, AST 10 L, ALT 19, Albumin 3.2 L, TSH 99.700 H, Free T4 0.73, CBC w Diff NO MAN DIFF REQ, RBC 3.90 L, MCV 82.0, MCH 26.5 L, MCHC 32.3 L, RDW 17.9 H, MPV 9.7, Gran % 78.3 H, Lymphocytes % 12.0 L, Monocytes % 6.8, Eosinophils % 1.2, Basophils % 1.7, Absolute Granulocytes 5.9, Absolute Lymphocytes 0.9 L, Absolute Monocytes 0.5, Absolute Eosinophils 0.1, Absolute Basophils 0.1 10/20/172103: APTT 68 H 10/20/17 1800: Anion Gap 7, Estimated GFR 39 L, Glucose 82, Calcium 8.5, Phosphorus 4.5, Magnesium 1.6, Total Bilirubin 1.0, AST 8 L, ALT 31, Albumin 3.2 L 10/20/17 1230: pH 7.46 H, pCO2 30 L, pO2 145 H, HCO3 21, ABG O2 Sat (Measured) 98.0, P-50 ( Temp Corrected) N, Carboxyhemoglobin 0.3 L, O2 Concentration % 35%, Respiration Rate 19, O2 Delivery Method VENT, Vent Mode CPAP/PSV TRIAL, Expiratory Pressure 5, Tidal Volume 574, Pressure Support 6, Phlebotomy Draw Site RIGHT BRACHIAL 10/20/17 1200: APTT > 120 *H 10/20/17 0354: Anion Gap 11, Estimated GFR 33 L, Glucose 96, Calcium 8.7, Phosphorus 4.1, Magnesium 2.0, Total Bilirubin 0.9, AST 8 L, ALT 30, Albumin 2.9 L, TSH 147.000 H, Free T4 0.76, APTT > 120 *H, CBC w Diff NO MAN DIFF REQ, RBC 4.05 L , MCV 81.1, MCH 26.5 L, MCHC 32.7 L, RDW 17.9 H, MPV 9.3, Gran % 77.8 H, Lymphocytes % 15.6 L, Monocytes % 5.8, Eosinophils % 0.4, Basophils % 0.4, Absolute Granulocytes 6.9 H, Absolute Lymphocytes 1.4, Absolute Monocytes 0.5, Absolute Eosinophils 0, Absolute Basophils 0 10/19/17 2021: APTT 30 10/19/17 1300: APTT 31 Assessment/Plan Assessment/Plan Assessment: 1. Hypertensive urgency -blood pressure stable today, currently only on dobutamine. 2. Elevated troponin-noted, decreasing 3. Hypothyroid-noted, continue as per endocrinology 4. Cardiomyopathy with ejection fraction 45% 5. Worsening anemia-noted, please check stools for any sign of active bleeding follow-up labs pending 6. Hypokalemia with potassium 3.1-replete as necessary. Please make sure magnesium also checked. 7. Acute renal insufficiency with increasing creatinine of breath sees 1.6 today) sees. BUN increased to 34 8. Hyperlipidemia recommendation: -Continue as per pulmonary -Continue as per endocrinology -Off pressors, continue to monitor blood pressure -Continue Lasix gentle diuresis -Follow-up labs in the morning -Okay to transfer to [address] [place] [address] telemetry from cardiac standpoint. Continue telemetry? Yes
[2017-10-21 09:37] LABS: PTT 57 SEC (25-37)
--- NOTE | 2017-10-21 11:02 | RADIOLOGY REPORT ---
EXAMINATION: XR PORTABLE CHEST CLINICAL INFORMATION: Cough. Infiltrate on chest radiograph. COMPARISON: 10/18/2017 and 10/20/2017 TECHNIQUE: Portable frontal view of the chest was obtained. FINDINGS: Pulmonary edema observed on 10/18/2017 has resolved. Linear opacity of discoid atelectasis or scarring in the right lateral lung base. Persistent opacity from atelectasis and/or infiltrate in left lower lobe with persistent small left pleural effusion. The opacity in the left base appears slightly worse compared to 10/20/2017. Cardiomegaly. The tip of the left subclavian central venous catheter is located within the proximal superior vena cava. No pneumothorax. IMPRESSION: Persistent left lower lobe consolidation and/or atelectasis with small left pleural effusion. The basilar opacity appears worse compared to 10/20/2017.
[2017-10-21 12:00] VITALS: BP 140/76
[2017-10-21 16:00] VITALS: BP 120/80
[2017-10-21 16:59] LABS: PTT 61 SEC (25-37)
[2017-10-22] VITALS: BP 120/80
[2017-10-22 06:02] LABS: ABSOLUTE BASOPHIL COUNT 0.1 /CUMM (0.0-0.2); ABSOLUTE EOSINOPHIL COUNT 0.2 /CUMM (0.0-0.7); ABSOLUTE GRANULOCYTE CT 4.8 /CUMM (1.4-6.5); ABSOLUTE LYMPH COUNT 0.9 /CUMM (1.2-3.4); ABSOLUTE MONOCYTE COUNT 0.5 /CUMM (0.10-0.60); EOSINOPHIL % 3.2 % (0-5); GRANULOCYTE % 74.6 % (42.2-75.2); HEMATOCRIT 32.9 % (37-47); MEAN CORPUSCULAR HGB 26.1 PG (27.0-31.0); MEAN CORPUSCULAR HGB CONC 31.8 G/DL (33.0-37.0); MEAN PLATELET VOLUME 9.1 FL (7.4-10.4); PLATELET COUNT 167 /CUMM (130-400); RBC DISTRIBUTION WIDTH 17.2 % (11.5-14.5); RED BLOOD CELL CT 4.02 /CUMM (4.20-5.40); WHITE BLOOD CELL COUNT 6.4 /CUMM (4.8-10.8)
[2017-10-22 06:10] LABS: PTT 56 SEC (25-37)
--- NOTE | 2017-10-22 07:33 | PN- Resident [facility] ---
Impression/Plan Plan DVT/Prophylaxis: mechanical, pharmacological hypertension not currently taking any medication, antiphospholipid antibody syndrome (not on anticoagulation or aspirin due to reported bleeding),psoriasis in remission (not on any immunosuppressant), inflammatory arthritis taking ibuprofen only, chronic interstitial cystitis, who has not seen a physician for the past 5 years presenting this admission with acute respiratory distress. Patient required intubation on arrival due to impending respiratory failure. Initially came in with acute hypertensive emergency with bp of 276/176. Patient was diuresed, received IV lopressor and nitroglycerin with an acute drop in her blood pressure. After which patient continued to have labile blood pressure with severe hypotension requiring IV pressor support. A central line was placed and patient was started on IV Kehinde-Synephrine. Patient's chest xray was concerning for pulmonary edema likely flash pulmonary edema secondary to hypertensive emergency. This may also be secondary to decompensated congestive heart failure as well with a pro-BNP of 16,000. Patient on exam had bilateral crackes however no JVD or lower extremity edema was appreciated. Patient's pulmonary edema may also be attributed to severe hypothyroidism and uncontrolled hypertension. Patient received IV lasix in the ED. Further diureses was held due to hypotension. The patient is being treated and evaluated for following conditions: Respiratory #Acute hypoxemic respiratory failure due to acute pulmonary edema Patient on 10/20 was weaned off the ventilator, blood gas was done and patient was extubated. Patient was transitioned to nasal cannula. Patient was mildly fluid positive and received 1 dose of IV lasix 40mg. - continue to monitor I/O - continue to monitor pulse ox - respiratory therapy is onboard - continue to wean off oxygen as tolerated Infection #Leukocytosis Likely reactive secondary to steroids. Patient remains afebrile without complaints. - will watch off antibiotics - follow up blood cultures - follow up urine culture identification and sensitivities - continue to monitor vitals - repeat CBC in am #Asymptomatic bacteuria Patient is growing gram negative rods in urine. Patient has not had any urinary symptoms prior to admission. However patient has a history of chronic interstitial cystitis and has previously had recurrent infections requiring antibiotics. - Will watch off antibiotics at this time - Follow up urine culture- identification and sensitivities pending Cardiology #Congestive heart failure Echo is showing left ventricular ejection fraction of 45% with moderate ventricular hypertrophy - Continue to monitor stricts I/O - Patient received a one-time dose of IV Lasix 40 mg today. No further diuresis at this time. - Cardiology is on board # ME type 1 vs type II Patient had elevated ST segments in leads V1, V2, V3 with recepirocal depression in inferior and lateral leads. Repeat EKG showed improvement. Patient's troponin peaked to 0.51 and decreased. Patient was seen by cardiology and started on IV heparin drip along with aspirin. Patient denies chest pain at this time. Echocardiogram shows LVEF of 45% with no obvious wall motion abnormalities. Likely demand ischemia secondary to initial hypertensive crisis and pulmonary edema followed by hypotension. - Cardiology is on board. Appreciate recommendations. - continue IV heparin - continue aspirin daily - Continue dobutamine per cardiology - continue morphine as needed #Hypertensive emergency Patient is now hypotensive to normotensive. - Continue to monitor BP - Continue to monitor creatinine - Continue telemetry monitoring - No antihypertensives at this time as patient is hypotensive requiring pressor support - Per cardiology continue IV dobutamine for next 24 hours Hematology #Anti-phospholipid antibody syndrome Patient has a history of miscarriages. Patient was on aspirin years prior which she stopped due to epistaxis and gum bleeding. Patient is at high risk of clotting. - Continue IV heparin and aspirin Metabolic #Hypothyroidism Patient had elevated thyroid stimulating hormone of >300. Patient reports a remote history of thyroid dysfunction in the past. It is unclear if she was previously diagnosed with hypothyroidism in the past. Patient's thyroid antibodies were positive. Likely patient has hashimotos. Patient is symptomatic with fatigue, weakness, cold intolerance, hair loss and likely cardiac dysfunction. Patient's repeat TSH today was elevated and T4 was slightly decreased from previous day. Thus far patient has received IV Synthroid 100 g continue levothyroxine 62.5 g IV daily as the distribution of thyroid hormone will take some time. Therefore it is not necessary to increase her dose further at this time. We'll continue to monitor patient's thyroid function tests. - Continue levothyroxine 62.5 g IV daily - Repeat TSH and T4 in AM - Endocrinology is onboard. Appreciate recommendations. Alimentary Patient was extubated today. - Bedside swallow evaluation today Nephrology #SHIV Creatinine increased from 1.1 to 1.6 today. Likely prerenal in the setting of hypotension and congestive heart failure. - avoid nephrotoxic agents - continue to monitor creatinine daily - continue to monitor I/O - peres is placed - IV fluids held in setting of acute pulmonary edema DVT prophylaxis On IV heparin Code Status Full code Plan DVT/Prophylaxis: mechanical, pharmacological Patient was extubated today. - Bedside swallow evaluation today Nephrology #SHIV Creatinine increased from 1.1 to 1.6 today. Likely prerenal in the setting of hypotension and congestive heart failure. - avoid nephrotoxic agents - continue to monitor creatinine daily - continue to monitor I/O - peres is placed - IV fluids held in setting of acute pulmonary edema DVT prophylaxis On IV heparin Code Status Full code Plan DVT/Prophylaxis: mechanical, pharmacological
[2017-10-22 08:00] VITALS: BP 120/82
--- NOTE | 2017-10-22 08:26 | PN- Endocrinology ---
Assessment/Plan Endoscopy Assessment: 57 y/o female, hx of hypertension untreated, hasn't seen a physician for 5-6 years, was admitted for pulmonary edema, EKG changes, positive troponin and hypoxemic respiratory failure. She was intubated in ER. Blood work showed profound hypothyroidism ( TSH 348 and free T4 0.43 )with positve anti TPO of > 1300. Clinically she has been better. She is extubated. Currently she is on Levothyroxine 125 mcg daily. Repeat TFT on 10/21/2017-- TSH 99.7, free T4 0.73; repeat TFT on 10/22/2017-- TSH 96.9. She is on Novolog coverage before meals. Her FSGs were 84, 106 and 76. Her HbA1c was 5.8%. Plan: 1. continue Levothyroxine 125 mcg po daily; 2. monitor TSH, free T4 in 1-2 weeks; 3. thyroid u.s as outpatient; 4. it is okay to discontinue Novolog coverage as she hasn't needed insulin coverage becuase her FSGs were < 120. 5. replete K; monitor electrolytes. will follow. Subjective Subjective: She feels better. Objective Last 24 Hrs of Vital Signs/I&O Vital Signs Date Time Temp Pulse Resp B/P B/P Pulse O2 O2 Flow FiO2 Mean Ox Delivery Rate 10/22 0000 97 Room Air 10/22 0000 98.3 58 20 120/80 97 Room Air 10/21 1600 Room Air 10/21 1600 98.8 72 21 120/80 96 Room Air 10/21 1200 98.7 80 21 140/76 94 Room Air Intake & Output 10/22 1600 10/22 0800 10/22 0000 Intake Total 308 600 Output Total 300 700 Balance 8 -100 Intake, IV 208 Intake, Oral 100 600 Output, Urine 300 700 Results Pertinent Lab/Brian Results: Laboratory Tests 10/22 10/21 10/21 0515 1639 0853 Chemistry Sodium (137 - 145 mmol/L) 136 L Potassium (3.5 - 5.1 mmol/L) 3.3 L Chloride (98 - 107 mmol/L) 101 Carbon Dioxide (22 - 30 mmol/L) 25 Anion Gap (5 - 16) 10 BUN (7 - 17 mg/dL) 22 H Creatinine (0.5 - 1.0 mg/dL) 1.0 Estimated GFR (>60 ml/min) 57 L BUN/Creatinine Ratio (7 - 25 %) 22.0 TSH (0.270 - 4.200 uIU/mL) 96.900 H Coagulation APTT (25 - 37 SEC) 56 H 61 H 57 H Hematology CBC w Diff NO MAN DIFF REQ WBC (4.8 - 10.8 /CUMM) 6.4 RBC (4.20 - 5.40 /CUMM) 4.02 L Hgb (12.0 - 16.0 G/DL) 10.5 L Hct (37 - 47 %) 32.9 L MCV (81.0 - 99.0 FL) 82.0 MCH (27.0 - 31.0 PG) 26.1 L MCHC (33.0 - 37.0 G/DL) 31.8 L RDW (11.5 - 14.5 %) 17.2 H Plt Count (130 - 400 /CUMM) 167 MPV (7.4 - 10.4 FL) 9.1 Gran % (42.2 - 75.2 %) 74.6 Lymphocytes % (20.5 - 51.1 %) 13.7 L Monocytes % (1.7 - 9.3 %) 7.5 Eosinophils % (0 - 5 %) 3.2 Basophils % (0.0 - 2.0 %) 1.0 Absolute Granulocytes (1.4 - 6.5 /CUMM) 4.8 Absolute Lymphocytes (1.2 - 3.4 /CUMM) 0.9 L Absolute Monocytes (0.10 - 0.60 /CUMM) 0.5 Absolute Eosinophils (0.0 - 0.7 /CUMM) 0.2 Absolute Basophils (0.0 - 0.2 /CUMM) 0.1
--- NOTE | 2017-10-22 09:45 | PN- Housestaff ---
Subjective Follow-up For: A.fib E.coli bacteremia [facility] on BiPAP Subjective: Overnight issues: No acute events overnight. Patient was seen and examined today. Patient states she is feeling much better today. States she did have some bleeding of her gums which was mild and stopped. Patient states prior to her intubation, a few of her teeth (which were loose) were removed. This was done with the patient and her 's consent. Patient denies any chest pain, palpitations, shortness of breath, abdominal pain. States she has nausea. Vitals: MAXIMUM TEMPERATURE 98.8, heart rate 61 to 80, normal sinus rhythm, respiration rate 21-30, blood pressure 116 to 160/7295, 92-95% on room air Total intake:2207, output:2450, weight 159 pounds Labs: WBC 6.4, H&H 10.5 and 32.9, platelets 167 Sodium 136, potassium 3.3, chloride 101, bicarbonate 25, BUN 22, creatinine 1.0 TSH: 96.9 (down from 99.7 day before) Microbiology: Urine culture growing pansensitive Escherichia coli. Chest x-ray: From 10/21 Showing persistent left lower lobe consolidation and/or atelectasis with small left pleural effusion. The basilar opacity appears worse compared to previous day. Review of Systems Constitutional: Reports: no symptoms, see HPI. Objective Last 24 Hrs of Vital Signs/I&O Vital Signs Date Time Temp Pulse Resp B/P B/P Pulse O2 O2 Flow FiO2 Mean Ox Delivery Rate 10/22 0000 97 Room Air 10/22 0000 98.3 58 20 120/80 97 Room Air 10/21 1600 Room Air 10/21 1600 98.8 72 21 120/80 96 Room Air 10/21 1200 98.7 80 21 140/76 94 Room Air Intake & Output 10/22 1600 10/22 0800 10/22 0000 Intake Total 308 600 Output Total 300 700 Balance 8 -100 Intake, IV 208 Intake, Oral 100 600 Output, Urine 300 700 Physical Exam General Appearance: Alert, Oriented X3, Cooperative, No Acute Distress HEENT: Atraumatic, PERRLA, EOMI, Mucous Membr. moist/pink, poor oral dentition, no active bleeding seen Cardiovascular: Regular Rate, Normal S1, Normal S2 Lungs: Clear to Auscultation, Normal Air Movement Abdomen: Normal Bowel Sounds, Soft, No Tenderness Neurological: Normal Speech Extremities: No Clubbing, No Cyanosis, No Edema, Normal Pulses, No Tenderness/ Swelling Vascular: Normal Pulses, Pulses Symmetrical Current Medications: Current Medications Sig/Ye Start time Last Medication Dose Route Stop Time Status Admin Acetaminophen 1,000 MG Q8P PRN 10/18 2215 AC IV Furosemide 20 MG ONCE ONE 10/21 1045 DC 10/21 IV PUSH 10/21 1046 1100 Heparin Sodium 2,169 UNIT ONCE ONE 10/22 0730 DC 10/22 (Porcine) IV 10/22 0731 0802 Heparin Sodium 2,200 UNIT ONCE ONE 10/21 1030 DC 10/21 (Porcine) IV 10/21 1031 1031 Heparin Sodium 5,000 UNIT .STK-MED ONE 10/21 1026 DC (Porcine) IV 10/21 1027 Heparin Sodium 25,000 UNIT Q24H 10/18 2130 AC 10/19 (Porcine) IV 2047 Sodium Chloride 500 ML Insulin Aspart 0 AT BEDTIME 10/21 2200 DC SC Insulin Aspart 0 TIDAC 10/21 1200 DC SC Insulin Human Regular 0 Q6 10/21 0600 DC SC Levothyroxine Sodium 0.125 MG DAILY AC 10/21 0911 AC 10/22 PO 0608 Magnesium Oxide 400 MG BID 10/21 1017 AC 10/22 PO 0928 Morphine Sulfate 2 MG Q4P PRN 10/18 2215 AC IV Pantoprazole Sodium 40 MG DAILY 10/19 0200 AC 10/21 IV 1031 Potassium Chloride 40 MEQ Q2H 10/22 0830 AC 10/22 PO 10/22 1031 0928 Trimethobenzamide HCl 200 MG 4 TIMES/DAY PRN 10/19 0915 AC 10/19 IM 0931 Last 24 Hrs of Lab/Brian Results Last 24 Hrs of Labs/Mics: Laboratory Tests 10/22/17 0515: Anion Gap 10, Estimated GFR 57 L, BUN/Creatinine Ratio 22.0, Magnesium 1.8, TSH 96.900 H, APTT 56 H, CBC w Diff NO MAN DIFF REQ, RBC 4.02 L, MCV 82.0, MCH 26.1 L, MCHC 31.8 L, RDW 17.2 H, MPV 9.1, Gran % 74.6, Lymphocytes % 13.7 L, Monocytes % 7.5, Eosinophils % 3.2, Basophils % 1.0, Absolute Granulocytes 4.8, Absolute Lymphocytes 0.9 L, Absolute Monocytes 0.5, Absolute Eosinophils 0.2, Absolute Basophils 0.1 10/21/17 1639: APTT 61 H Assessment/Plan Assessment: Patient is a 57-year-old female with past medical history significant for hypertension not currently taking any medication, antiphospholipid antibody syndrome (not on anticoagulation or aspirin due to reported bleeding),psoriasis in remission (not on any immunosuppressant), inflammatory arthritis taking ibuprofen only, chronic interstitial cystitis, who has not seen a physician for the past 5 years presenting this admission with acute respiratory distress. Patient required intubation on arrival due to impending respiratory failure. Initially came in with acute hypertensive emergency with bp of 276/176. Patient was diuresed, received IV lopressor and nitroglycerin with an acute drop in her blood pressure. After which patient continued to have labile blood pressure with severe hypotension requiring IV pressor support. A central line was placed and patient was started on IV Kehinde-Synephrine. Patient's chest xray was concerning for pulmonary edema likely flash pulmonary edema secondary to hypertensive emergency. This may also be secondary to decompensated congestive heart failure as well with a pro-BNP of 16,000. Patient on exam had bilateral crackes however no JVD or lower extremity edema was appreciated. Patient's pulmonary edema may also be attributed to severe hypothyroidism and uncontrolled hypertension. Patient received IV lasix in the ED. Further diureses was held due to hypotension. The patient is being treated and evaluated for following conditions: Respiratory #Acute hypoxemic respiratory failure due to acute pulmonary edema - resolved Patient on 10/20 was weaned off the ventilator, blood gas was done and patient was extubated. Patient was transitioned to nasal cannula. Patient was mildly fluid positive and received 1 dose of IV lasix 40mg. - continue to monitor I/O - continue to monitor pulse ox - respiratory therapy is onboard - continue to wean off oxygen as tolerated # Persistent left lower lobe consolidation/atelectasis Patient's CXR shows a persistent consolidation and/or atelectasis. Patient has a signficant smoking history and there is concern for possible lung cancer. Also due to patient's signficant smoking history she would benefit from further evaluation with PFTs outpatient and follow up with an outpatient ict business development manager. - consider CT chest w/o contrast - smoking cessation counseling- please provide with materials at discharge - outpatient pulmonary follow up with PFTs Infection #Leukocytosis- resolved Likely reactive secondary to steroids. Patient remains afebrile without complaints. - will watch off antibiotics - continue to monitor vitals #Asymptomatic bacteuria Patient is growing gram negative rods in urine. Patient has not had any urinary symptoms prior to admission. However patient has a history of chronic interstitial cystitis and has previously had recurrent infections requiring antibiotics. Urine culture growing pansensitive e.coli however patient remains asymptomatic after peres removal. - As patient remains asymptomatic after peres removal, will continue to watch off antibiotics at this time Cardiology #Congestive heart failure Echo is showing left ventricular ejection fraction of 45% with moderate ventricular hypertrophy - Continue to monitor stricts I/O - Patient has received diuresis with resolution of pulmonary edema seen on CXR. Patient appears euvolemic today. Further diuresis per cardiology recommendations today. - Cardiology is on board - Consider adding lisinopril # CO type 1 vs type II Patient had elevated ST segments in leads V1, V2, V3 with recepirocal depression in inferior and lateral leads. Repeat EKG showed improvement. Patient's troponin peaked to 0.51 and decreased. Patient was seen by cardiology and started on IV heparin drip along with aspirin. Patient denies chest pain at this time. Echocardiogram shows LVEF of 45% with no obvious wall motion abnormalities. Likely demand ischemia secondary to initial hypertensive crisis and pulmonary edema followed by hypotension. There is concern in this patient however due to her significant smoking history, antiphospholipid antibody syndrome, hypthyroidism, hyperlipidemia and uncontrolled hypertension that she is at high risk of myocardial infarction. Further cardiac catheterization vs risk startification with a stress test per cardiology, however I think she would benefit from directly going to cath as patient's KATE score gives a 13% risk of 14 days of all cause mortality, new or recurrent CO or severe recurrent ischemia requiring urgent revascularization. - Cardiology is on board. Appreciate recommendations. - continue IV heparin - continue aspirin daily - continue morphine as needed #Hypertensive emergency Patient is now hypotensive to normotensive. - Continue to monitor BP - Continue to monitor creatinine - Continue telemetry monitoring - No antihypertensives at this time as patient is hypotensive requiring pressor support - Per cardiology continue IV dobutamine for next 24 hours #Hyperlipidemia: Patient's lipid levels this admission were elevated. Patient's ASCVD score predicts she has a 10% of a 10 year risk of heart disease or stroke. Patient should be started on a moderate to high intesnity statin. - started on atorvastatin 40mg daily Hematology #Anti-phospholipid antibody syndrome Patient has a history of miscarriages. Patient reports that she was on aspirin prior however stopped it by herself. Patient is at high risk of clotting. - Continue IV heparin and aspirin Metabolic #Hypothyroidism Patient had elevated thyroid stimulating hormone of >300. Patient reports a remote history of thyroid dysfunction in the past. It is unclear if she was previously diagnosed with hypothyroidism in the past. Patient's thyroid antibodies were positive. Likely patient has hashimotos. Patient is symptomatic with fatigue, weakness, cold intolerance, hair loss and likely cardiac dysfunction. Patient's repeat TSH today was elevated and T4 was slightly decreased from previous day. Thus far patient has received IV Synthroid 100 g continue levothyroxine 62.5 g IV daily as the distribution of thyroid hormone will take some time. Therefore it is not necessary to increase her dose further at this time. Patient's TSH continues to remain elevated however is declining. - Continue levothyroxine 125 mcg PO daily - Repeat TFTs in 1-2 weeks - Patient will require an outpatient thyroid ultrasound - Endocrinology is onboard. Appreciate recommendations. Alimentary Patient was extubated on 10/20. Patient to continue consistent carbohydrate 1 diet with sodium restriction Nephrology #SHIV - Resolved. Creatinine increased from 1.1 to 1.6 today. Likely prerenal in the setting of hypotension and congestive heart failure. Creatinine has improved today to 1.0. - avoid nephrotoxic agents - continue to monitor creatinine daily - continue to monitor I/O DVT prophylaxis On IV heparin Code Status Full code Dispo Tele Hold Problem List: 1. Pulmonary edema 2. Cardiomyopathy 3. Hypothyroidism 4. Antiphospholipid antibody syndrome 5. SHIV (acute kidney injury) Pain Ratin Pain Location: none Pain Goal: Remain pain free Pain Plan: tylenol PRN Tomorrow's Labs & Rationales: cbc- on heparin bep- hypokalemia
--- NOTE | 2017-10-22 11:27 | PN- Pulmonary ---
Subjective HPI/Critical Care Issues: Patient seen and examined this morning. She is on room air she has a dry cough otherwise she is much better. Objective Current Medications: Current Medications Sig/Ye Start time Last Medication Dose Route Stop Time Status Admin Acetaminophen 1,000 MG Q8P PRN 10/18 2215 AC IV Heparin Sodium 2,169 UNIT ONCE ONE 10/22 0730 DC 10/22 (Porcine) IV 10/22 0731 0802 Heparin Sodium 25,000 UNIT Q24H 10/18 2130 AC 10/19 (Porcine) IV 2047 Sodium Chloride 500 ML Insulin Aspart 0 AT BEDTIME 10/21 2200 DC SC Insulin Aspart 0 TIDAC 10/21 1200 DC SC Levothyroxine Sodium 0.125 MG DAILY AC 10/21 0911 AC 10/22 PO 0608 Magnesium Oxide 400 MG BID 10/21 1017 AC 10/22 PO 0928 Morphine Sulfate 2 MG Q4P PRN 10/18 2215 AC IV Pantoprazole Sodium 40 MG DAILY 10/19 0200 AC 10/21 IV 1031 Potassium Chloride 40 MEQ Q2H 10/22 0830 DC 10/22 PO 10/22 1031 0928 Trimethobenzamide HCl 200 MG 4 TIMES/DAY PRN 10/19 0915 AC 10/19 IM 0931 Vital Signs & I&O Last 24 Hrs of Vitals and I&O: Vital Signs Date Time Temp Pulse Resp B/P B/P Pulse O2 O2 Flow FiO2 Mean Ox Delivery Rate 10/22 0000 97 Room Air 10/22 0000 98.3 58 20 120/80 97 Room Air 10/21 1600 Room Air 10/21 1600 98.8 72 21 120/80 96 Room Air 10/21 1200 98.7 80 21 140/76 94 Room Air Intake & Output 10/22 1600 10/22 0800 10/22 0000 Intake Total 308 600 Output Total 300 700 Balance 8 -100 Intake, IV 208 Intake, Oral 100 600 Output, Urine 300 700 Exam Other Physical Findings: Generally - Awake, alert and comfortable without distress Head and neck - normocephalic, atraumatic, EOMI grossly intact Cardiovascular - S1, S2 Lungs -slightly reduced breath sounds at the bases Abdomen - Bowel sounds positive, soft, non-tender Extremities - without edema Results Last 24 Hrs of Lab Results: Laboratory Tests 10/22/17 0515: Anion Gap 10, Estimated GFR 57 L, BUN/Creatinine Ratio 22.0, Magnesium 1.8, TSH 96.900 H, APTT 56 H, CBC w Diff NO MAN DIFF REQ, RBC 4.02 L, MCV 82.0, MCH 26.1 L, MCHC 31.8 L, RDW 17.2 H, MPV 9.1, Gran % 74.6, Lymphocytes % 13.7 L, Monocytes % 7.5, Eosinophils % 3.2, Basophils % 1.0, Absolute Granulocytes 4.8, Absolute Lymphocytes 0.9 L, Absolute Monocytes 0.5, Absolute Eosinophils 0.2, Absolute Basophils 0.1 10/21/17 1639: APTT 61 H Impression/Plan Impression/Plan Impression/Plan: Impression 57-year-old woman * decreasing troponins, htn * blunted costophrenic angles, possible atelectasis, vs infiltrate * tobacco dependence Plan -f/u plan per cardiology and endocrinology -trc/nebs -ins/outs, lasix -hemodynamic monitoring -from the pulmonary perspective given persistent infiltrate, would recommend CT chest without contrast, to evaluate lung parenchyma and rule out mass/noudle, etc -smoking cessation counseling -would require outpatient PFTs DVT prophylaxis at all times
[2017-10-22 15:06] LABS: PTT 56 SEC (25-37)
[2017-10-22 16:00] VITALS: BP 130/82
[2017-10-22 18:05] VITALS: BP 122/80
--- NOTE | 2017-10-22 20:48 | PN- Cardiology ---
Subjective Subjective: * Shortness of breath has improved. Patient has occasional chest tightness. * sinus rhythm * creatinine 1.0 and potassium is 3.3 Objective Vital Signs and I&Os Vital Signs Date Time Temp Pulse Resp B/P B/P Pulse O2 O2 Flow FiO2 Mean Ox Delivery Rate 10/22 1814 Room Air 10/22 1804 98.9 78 20 122/80 95 Room Air 10/22 1600 Room Air 10/22 1600 98.8 60 20 130/82 97 Room Air 10/22 0800 Room Air 10/22 0800 97.7 60 20 120/82 97 Room Air 10/22 0000 97 Room Air 10/22 0000 98.3 58 20 120/80 97 Room Air Intake & Output 10/22 1600 10/22 0800 10/22 0000 10/21 1600 10/21 0800 10/21 0000 Intake Total 1386 308 600 908 699.3 382.4 Output Total 600 844 772 5892 450 1000 Balance 786 8 -100 -392 249.3 -617.6 Intake, IV 186 208 188 359.3 382.4 Intake, Oral 1200 100 600 720 340 Number 0 0 Bowel Movements Output, Urine 600 373 490 7760 450 1000 Patient 159 lb Weight Weight Bed scale Measurement Method Physical Exam: General: WD/WN female in NAD; alert and oriented x 3 Neck: no JVD Heart: RRR Lungs: clear bilaterally Extremities: no edema Assessment/Plan Assessment/Plan * Doing much better with resolved renal insufficiency. Replete potassium to 4.0. * Follow Dr. Combs recommendations for diabetes and hypothyroidism. * Short episode of NSVT on dobutamine which was discontinued yesterday. Patient did rule in for an NC and has some chest heaviness which may be related to bronchospasm but myocardial ischemia cannot be excluded. Will pursue a cardiac catheterization on Sunday. Continue aspirin and begin a statin i.e. Lipitor 40mg daily. * Follow pulmonary recommendations for chest CT and PFT's Continue telemetry? Yes
[2017-10-22 22:09] LABS: PTT 42 SEC (25-37)
[2017-10-22 23:15] VITALS: BP 158/90
[2017-10-23 05:58] VITALS: BP 150/90
[2017-10-23 06:20] LABS: ABSOLUTE BASOPHIL COUNT 0.1 /CUMM (0.0-0.2); ABSOLUTE EOSINOPHIL COUNT 0.2 /CUMM (0.0-0.7); ABSOLUTE LYMPH COUNT 0.8 /CUMM (1.2-3.4); ABSOLUTE MONOCYTE COUNT 0.4 /CUMM (0.10-0.60); EOSINOPHIL % 3.5 % (0-5); HEMATOCRIT 32.3 % (37-47); MEAN CORPUSCULAR HGB 26.4 PG (27.0-31.0); MEAN CORPUSCULAR HGB CONC 32.1 G/DL (33.0-37.0); MEAN CORPUSCULAR VOLUME 82.2 FL (81.0-99.0); MEAN PLATELET VOLUME 9.4 FL (7.4-10.4); PLATELET COUNT 169 /CUMM (130-400); RBC DISTRIBUTION WIDTH 17.8 % (11.5-14.5); RED BLOOD CELL CT 3.93 /CUMM (4.20-5.40); WHITE BLOOD CELL COUNT 5.5 /CUMM (4.8-10.8)
[2017-10-23 06:32] LABS: PTT 107 SEC (25-37)
--- NOTE | 2017-10-23 07:22 | PN- Housestaff ---
Subjective Follow-up For: A.fib E.coli bacteremia CAMPBELL on BiPAP Chest pain Tele-Events Since Last Visit: NSR 61-70 QRS .1 ME .18 Subjective: No acute events overnight. Still feels congested. States her vision is somewhat blurry. Feels stronger than original admission date. No current chest pain. Review of Systems Constitutional: Reports: see HPI. Respiratory: Reports: see HPI (congestion). Neurological/Psychological: Reports: see HPI (blurry vision). Objective Last 24 Hrs of Vital Signs/I&O Vital Signs Date Time Temp Pulse Resp B/P B/P Pulse O2 O2 Flow FiO2 Mean Ox Delivery Rate 10/23 1420 99.0 82 18 142/90 96 Room Air 10/23 0558 98.6 64 18 150/90 97 Room Air 10/23 0000 Room Air 10/22 2315 99.4 74 18 158/90 97 Room Air Intake & Output 10/23 1600 10/23 0800 10/23 0000 Intake Total 650 90 Output Total 650 200 Balance 0 -110 Intake, IV 250 90 Intake, Oral 400 Output, Urine 650 200 Patient 171 lb Weight Physical Exam General Appearance: Alert, Oriented X3, Cooperative, No Acute Distress HEENT: PERRLA, Mucous Membr. 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 Cap refill <2 seconds. Current Medications: Current Medications Sig/Ye Start time Last Medication Dose Route Stop Time Status Admin Acetaminophen 1,000 MG Q8P PRN 10/18 2215 AC IV Artificial Tears 2 GTT 4 TIMES/DAY 10/23 1545 AC 10/23 OPH 1647 Aspirin 81 MG DAILY 10/22 1500 DC 10/23 PO 0846 Atorvastatin Calcium 40 MG 1700 10/22 2200 AC 10/23 PO 1647 Heparin Sodium 2,325 UNIT 1541 10/23 1541 DC 10/23 (Porcine) IV 10/23 1542 1652 Heparin Sodium 25,000 UNIT .STK-MED ONE 10/23 0339 DC (Porcine) IV 10/23 0340 Heparin Sodium 4,338 UNIT BOLUS ONE 10/22 2245 DC 10/22 (Porcine) IV 10/22 2246 2354 Heparin Sodium 25,000 UNIT Q24H 10/18 2130 AC 10/23 (Porcine) IV 0340 Sodium Chloride 500 ML Levothyroxine Sodium 0.125 MG DAILY AC 10/21 0911 AC 10/23 PO 0557 Magnesium Oxide 400 MG BID 10/21 1017 AC 10/23 PO 0845 Morphine Sulfate 2 MG Q4P PRN 10/18 2215 AC IV Pantoprazole Sodium 40 MG DAILY 10/19 0200 AC 10/23 IV 0845 Potassium Chloride 40 MEQ ONCE ONE 10/23 0500 DC 10/23 PO 10/23 0501 0557 Trimethobenzamide HCl 200 MG 4 TIMES/DAY PRN 10/19 0915 AC 10/19 IM 0931 Last 24 Hrs of Lab/Brian Results Last 24 Hrs of Labs/Mics: Laboratory Tests 10/23/17 1400: APTT 45 H 10/23/17 1230: APTT Cancelled 10/23/17 0535: Anion Gap 10, Estimated GFR > 60, BUN/Creatinine Ratio 22.2, APTT 107 *H, CBC w Diff NO MAN DIFF REQ, RBC 3.93 L, MCV 82.2, MCH 26.4 L, MCHC 32.1 L, RDW 17.8 H, MPV 9.4, Gran % 73.0, Lymphocytes % 14.4 L, Monocytes % 8.1, Eosinophils % 3.5, Basophils % 1.0, Absolute Granulocytes 4.0, Absolute Lymphocytes 0.8 L, Absolute Monocytes 0.4, Absolute Eosinophils 0.2, Absolute Basophils 0.1 10/22/170: APTT 42 H Assessment/Plan Assessment: Assessment: Patient is a 57-year-old female with past medical history significant for hypertension not currently taking any medication, antiphospholipid antibody syndrome (not on anticoagulation or aspirin due to reported bleeding),psoriasis in remission (not on any immunosuppressant), inflammatory arthritis taking ibuprofen only, chronic interstitial cystitis, who has not seen a physician for the past 5 years presenting this admission with acute respiratory distress. Patient required intubation on arrival due to impending respiratory failure. Initially came in with acute hypertensive emergency with bp of 276/176. Patient was diuresed, received IV lopressor and nitroglycerin with an acute drop in her blood pressure. After which patient continued to have labile blood pressure with severe hypotension requiring IV pressor support. A central line was placed and patient was started on IV Kehinde-Synephrine. Patient's chest xray was concerning for pulmonary edema likely flash pulmonary edema secondary to hypertensive emergency. This may also be secondary to decompensated congestive heart failure as well with a pro-BNP of 16,000. Patient on exam had bilateral crackes however no JVD or lower extremity edema was appreciated. Patient's pulmonary edema may also be attributed to severe hypothyroidism and uncontrolled hypertension. Patient received IV lasix in the ED. Further diureses was held due to hypotension. P: Patient NPO tonight for cath @ [place] tomorrow. Currently holding aspirin. #Acute hypoxemic respiratory failure due to acute pulmonary edema - resolved Patient on 10/20 was weaned off the ventilator, blood gas was done and patient was extubated. Patient was transitioned to nasal cannula. Patient was mildly fluid positive and received 1 dose of IV lasix 40mg. - continue to monitor I/O - continue to monitor pulse ox - respiratory therapy is onboard - continue to wean off oxygen as tolerated # Persistent left lower lobe consolidation/atelectasis Patient's CXR shows a persistent consolidation and/or atelectasis. Patient has a signficant smoking history and there is concern for possible lung cancer. Also due to patient's signficant smoking history she would benefit from further evaluation with PFTs outpatient and follow up with an outpatient software support analyst. Repeat ct chest: 1. Small pulmonary parenchymal nodules as well as nodular thickening along the inferior aspect of the anterior margin of the major fissure in the right lung as described in detail above 2. Central atelectasis involving a significant portion of the left lower lobe and a small portion of the left upper lobe, containing air bronchograms. This may represent compressive atelectasis from the moderate left-sided pleural effusion. 3. Cardiomegaly appears to be predominantly left ventriculomegaly. 4. Borderline mediastinal and axillary lymph nodes without sakina lymphadenopathy. 5. Hypoattenuating structure in the right lobe of liver likely represents a hepatic cyst. - smoking cessation counseling- please provide with materials at discharge - outpatient pulmonary follow up with PFTs - [facility] nebs - low dose lung cancer screening program as outpatient per pulm #Leukocytosis- resolved Likely reactive secondary to steroids. Patient remains afebrile without complaints. - will watch off antibiotics - continue to monitor vitals #Asymptomatic bacteuria Patient is growing gram negative rods in urine. Patient has not had any urinary symptoms prior to admission. However patient has a history of chronic interstitial cystitis and has previously had recurrent infections requiring antibiotics. Urine culture growing pansensitive e.coli however patient remains asymptomatic after peres removal. - As patient remains asymptomatic after peres removal, will continue to watch off antibiotics at this time #Congestive heart failure Echo is showing left ventricular ejection fraction of 45% with moderate ventricular hypertrophy - Continue to monitor stricts I/O - Patient has received diuresis with resolution of pulmonary edema seen on CXR. Further diuresis per cardiology recommendations. - Cardiology is on board - Consider adding lisinopril # MN type 1 vs type II Patient had elevated ST segments in leads V1, V2, V3 with recepirocal depression in inferior and lateral leads. Repeat EKG showed improvement. Patient's troponin peaked to 0.51 and decreased. Patient was seen by cardiology and started on IV heparin drip along with aspirin. Patient denies chest pain at this time. Echocardiogram shows LVEF of 45% with no obvious wall motion abnormalities. Likely demand ischemia secondary to initial hypertensive crisis and pulmonary edema followed by hypotension. There is concern in this patient however due to her significant smoking history, antiphospholipid antibody syndrome, hypthyroidism, hyperlipidemia and uncontrolled hypertension that she is at high risk of myocardial infarction. Further cardiac catheterization vs risk startification with a stress test per cardiology, however I think she would benefit from directly going to cath as patient's KATE score gives a 13% risk of 14 days of all cause mortality, new or recurrent MN or severe recurrent ischemia requiring urgent revascularization. - Patient will be NPO tonight for cardiac cath @ [place] tomorrow. - continue IV heparin - continue aspirin daily - continue morphine as needed #Hypertensive emergency Patient is now normotensive. - Continue to monitor BP - Continue to monitor creatinine - Continue telemetry monitoring #Hyperlipidemia: Patient's lipid levels this admission were elevated. Patient's ASCVD score predicts she has a 10% of a 10 year risk of heart disease or stroke. Patient should be started on a moderate to high intesnity statin. -cont atorvastatin 40mg daily #Anti-phospholipid antibody syndrome Patient has a history of miscarriages. Patient reports that she was on aspirin prior however stopped it by herself. Patient is at high risk of clotting. - Continue IV heparin and aspirin - will most likely require lifelong anticoagulation upon discharge #Hypothyroidism Patient had elevated thyroid stimulating hormone of >300. Patient reports a remote history of thyroid dysfunction in the past. It is unclear if she was previously diagnosed with hypothyroidism in the past. Patient's thyroid antibodies were positive. Likely patient has hashimotos. Patient is symptomatic with fatigue, weakness, cold intolerance, hair loss and likely cardiac dysfunction. Patient's repeat TSH today was elevated and T4 was slightly decreased from previous day. Thus far patient has received IV Synthroid 100 g continue levothyroxine 62.5 g IV daily as the distribution of thyroid hormone will take some time. Therefore it is not necessary to increase her dose further at this time. Patient's TSH continues to remain elevated however is declining. - Continue levothyroxine 125 mcg PO daily - Repeat TFTs in 1-[address] Oglesby - Patient will require an outpatient thyroid ultrasound - Endocrinology is onboard. Appreciate recommendations. #extubation Patient was extubated on 10/20. Patient to continue consistent carbohydrate 1 diet with sodium restriction #SIHV - Resolved. Likely prerenal in the setting of hypotension and congestive heart failure. - avoid nephrotoxic agents - continue to monitor creatinine daily - continue to monitor I/O #DVT prophylaxis - IV heparin #FULL CODE Problem List: 1. Pulmonary edema 2. Cardiomyopathy 3. Antiphospholipid antibody syndrome 4. Hypothyroidism 5. SHIV (acute kidney injury) 6. Myocardial infarction Pain Ratin Pain Location: none Pain Goal: Pain 4 or less Pain Plan: pain pathway Tomorrow's Labs & Rationales: cbc bep
--- NOTE | 2017-10-23 07:42 | Discharge Summary ---
Visit Information Visit Dates Admission Date: 10/18/17 Hospital Course Course Attending Physician: Shad YIP PHD,Berry Miller Primary Care Physician: Unknown Allergies: Coded Allergies: Penicillins (Severe, ANAPHYLAXIS 10/20/17) amoxicillin (Intermediate, ITCHY, SOB 10/18/17) ciprofloxacin (From CIPRO) (Intermediate, ITCHY, SOB 10/18/17) nitrofurantoin (From MACRODANTIN) (Intermediate, SOB 10/20/17)
--- NOTE | 2017-10-23 12:34 | CT SCAN REPORT ---
EXAMINATION: CT CHEST WITHOUT CONTRAST CLINICAL INFORMATION: Interval assessment of pulmonary nodules. Possible pleural effusion. COMPARISON: Portable chest x-ray dated 10/18/2017. TECHNIQUE: Multidetector volumetric CT imaging of the chest was done. Axial MIP volume rendering provided. Sagittal and coronal reformatted images were obtained. DLP: 217.89 mGy-cm FINDINGS: CHIEF ACCOUNTANT: No lines or tubes, similar appearance to the plain film study, left retrocardiac density. LUNGS: Pulmonary nodules (all pulmonary nodules are documented with respect to CT series 5): 1. 2 mm pulmonary nodule in the lateral margin of the right upper lobe (185/560) 2. 2 mm pulmonary nodule in the lateral margin of the right lower lobe (238/560) 3. Pleural-based 5 mm nodule in the posterior medial margin of the right lung base. 4. There are multiple nodular densities extending along the inferior half of the major fissure in the right middle lobe from image 318 through 395, ending at the right lung base. The largest of the associated structures measures 1.1 cm in largest long axis dimension. There is an area of increased density extending from the left hilar region to the left lung base in the central pulmonary parenchyma of the left lower lobe and minimally involving the central portion of the left upper lobe near the lung base, both sections contain multiple air bronchograms and are suggestive of atelectasis. MEDIASTINUM: Nonenlarged mediastinal lymph nodes are present in the prevascular region and right pretracheal and precarinal regions, all are subcentimeter in short axis dimension. No hilar lymphadenopathy is noted. There is cardiomegaly which appears to be predominantly left ventricular enlargement. PLEURA: A moderate posterior left-sided pleural effusion is present, extending from the posterior aspect of the superior left hemithorax to the left lung base. AXILLA: Borderline axillary lymph nodes are present bilaterally, all are subcentimeter in size. UPPER ABDOMEN: A 1.5 cm hypoattenuating focus is present in the anterior aspect of the right lobe of liver, measuring fluid density by Hounsfield units.. OSSEOUS STRUCTURES: No focal aggressive osseous lesions.. IMPRESSION: 1. Small pulmonary parenchymal nodules as well as nodular thickening along the inferior aspect of the anterior margin of the major fissure in the right lung as described in detail above 2. Central atelectasis involving a significant portion of the left lower lobe and a small portion of the left upper lobe, containing air bronchograms. This may represent compressive atelectasis from the moderate left-sided pleural effusion. 3. Cardiomegaly appears to be predominantly left ventriculomegaly. 4. Borderline mediastinal and axillary lymph nodes without sakina lymphadenopathy. 5. Hypoattenuating structure in the right lobe of liver likely represents a hepatic cyst.
--- NOTE | 2017-10-23 12:36 | PN- Endocrinology ---
Assessment/Plan Endoscopy Assessment: 57 y/o female, hx of hypertension untreated, hasn't seen a physician for 5-6 years, was admitted for pulmonary edema, EKG changes, positive troponin and hypoxemic respiratory failure. She was intubated in ER. Blood work showed profound hypothyroidism ( TSH 348 and free T4 0.43 )with positve anti TPO of > 1300. Clinically she has been better. Currently she is on Levothyroxine 125 mcg daily. Repeat TFT on 10/21/2017-- TSH 99.7, free T4 0.73; repeat TFT on 10/22/2017-- TSH 96.9. Her HbA1c was 5.8%. Plan: 1. continue Levothyroxine 125 mcg po daily; 2. monitor TSH, free T4 in 1-2 weeks; 3. thyroid u.s as outpatient; 4. with regards to borderline elevated HbA1c, I have recommended diet control. 5. f/u in office after discharge. Subjective Subjective: She feels better. Objective Last 24 Hrs of Vital Signs/I&O Vital Signs Date Time Temp Pulse Resp B/P B/P Pulse O2 O2 Flow FiO2 Mean Ox Delivery Rate 10/23 0558 98.6 64 18 150/90 97 Room Air 10/23 0000 Room Air 10/22 2315 99.4 74 18 158/90 97 Room Air 10/22 1815 Room Air 10/22 1805 98.9 78 20 122/80 95 Room Air 10/22 1600 Room Air 10/22 1600 98.8 60 20 130/82 97 Room Air Intake & Output 10/23 1600 10/23 0800 10/23 0000 Intake Total 90 Output Total 200 Balance -110 Intake, IV 90 Output, Urine 200 Patient 171 lb Weight Results Pertinent Lab/Brian Results: Laboratory Tests 10/23 10/23 10/22 1230 0535 2120 Chemistry Sodium (137 - 145 mmol/L) 135 L Potassium (3.5 - 5.1 mmol/L) 4.2 Chloride (98 - 107 mmol/L) 102 Carbon Dioxide (22 - 30 mmol/L) 23 Anion Gap (5 - 16) 10 BUN (7 - 17 mg/dL) 20 H Creatinine (0.5 - 1.0 mg/dL) 0.9 Estimated GFR (>60 ml/min) > 60 BUN/Creatinine Ratio (7 - 25 %) 22.2 Coagulation APTT (25 - 37 SEC) Cancelled 107 *H 42 H Hematology CBC w Diff NO MAN DIFF REQ WBC (4.8 - 10.8 /CUMM) 5.5 RBC (4.20 - 5.40 /CUMM) 3.93 L Hgb (12.0 - 16.0 G/DL) 10.4 L Hct (37 - 47 %) 32.3 L MCV (81.0 - 99.0 FL) 82.2 MCH (27.0 - 31.0 PG) 26.4 L MCHC (33.0 - 37.0 G/DL) 32.1 L RDW (11.5 - 14.5 %) 17.8 H Plt Count (130 - 400 /CUMM) 169 MPV (7.4 - 10.4 FL) 9.4 Gran % (42.2 - 75.2 %) 73.0 Lymphocytes % (20.5 - 51.1 %) 14.4 L Monocytes % (1.7 - 9.3 %) 8.1 Eosinophils % (0 - 5 %) 3.5 Basophils % (0.0 - 2.0 %) 1.0 Absolute Granulocytes (1.4 - 6.5 /CUMM) 4.0 Absolute Lymphocytes (1.2 - 3.4 /CUMM) 0.8 L Absolute Monocytes (0.10 - 0.60 /CUMM) 0.4 Absolute Eosinophils (0.0 - 0.7 /CUMM) 0.2 Absolute Basophils (0.0 - 0.2 /CUMM) 0.1 10/22 1335 Coagulation APTT (25 - 37 SEC) 56 H
--- NOTE | 2017-10-23 13:13 | Discharge Summary ---
Visit Information Visit Dates Admission Date: 10/18/17 Discharge Date: 10/24/17 Hospital Course Course Attending Physician: Shad YIP PHD,Berry Miller Primary Care Physician: Unknown Consulting Request: 1 Consulting Specialty: Endocrinology Consulting Request: 2 Consulting Specialty: Critical Care Hospital Course: Patient is a 57-year-old female with past medical history significant for hypertension not currently taking any medication, antiphospholipid antibody syndrome (not on anticoagulation or aspirin due to reported bleeding),psoriasis in remission (not on any immunosuppressant), inflammatory arthritis taking ibuprofen only, chronic interstitial cystitis, who has not seen a physician for the past 5 years presenting this admission with acute respiratory distress. Problem list: - Acute hypoxic respiratory failure due to acute flash pulmonary edema - Hypertensive urgency - Elevated troponin type II [place]. - Hypothyroid - Congestive heart failure HrEF/Cardiomyopathy with ejection fraction 45% - Anemia history of antiphospholipid syndrome. - Acute renal insufficiency - Hyperlipidemia - Pulmonary nodule with lymphadenopathy ICU course: Upon arrival to the emergency department patient was in respiratory distress and her oxygen saturation was in the low mid 80s, she was acute cardiac, tachypneic and hypertensive despite 2 Nitropaste applied via EMS also she was tachypneic due to anxiety over possible . Due impending respiratory failure the patient was intubated in the emergency department, she received the following medication: 1 mg IV Ativan, per rectum 300 mg aspirin, 40 mg of IV Lasix, 2 g of nitroglycerin-bid, 5 mg of IV metoprolol. Initial EKG shows ST segment elevations anteriorly with ST segment depressions inferolaterally. Her blood pressure dropped from 262/176 to 144/96 after these meds then after she reached the ICU floor her BP decreased to below 60 systolic blood pressure, we start normal saline IV fluid bolus, we contacted the wet wheeler and he recommended to start the patient on the peripheral as she is hypotensive in the 60s systolic, with heart rate in the 60, as advised to start the patient on Neosynephrine pressor and attempt to decrease IV fluids giving the patient underlying flash pulmonary edema. Left axillary vein central line placed under local anesthesia was placed by the surgical team, patient after that was started on fentanyl drip for sedation. Also due to her EKG changes patient was started on IV heparin drip, her second troponin peaked at 0.51 and the third one was 0.46. Her EKG showed that the anterior lead ST segment elevation started to normalize and the as soon as her pressor was changes to Dobutamine drip and as also she received 40 of IV Lasix after her blood pressure under control. Her TSH level>300 and so we consulted endocrinology and she recommended to start the patient on stress dose of hydrocortisone 100 mg IV after that we'll give her 100 MCG of levothyroxine also will check thyroid antibody level, cortisol level and recheck TSH and free T4, T3. Her levothyroxine was changed to 0.125 by mouth. She was placed on IV Protonix for GI prophylaxis. Patient on 10/20 was weaned off the ventilator, blood gas was done and patient was extubated. On The dobutamine was discontinued on Sunday overnight. She received additional dose of IV Lasix 40 mg. CAT scan of the chest was done, that showed pulmonary nodule and lymphadenopathy patient will need to follow-up with gasket supervisor for further evaluation and assessment and follow-up. Patient was downgraded to telemetry floor and was transferred. As recommended by wet wheeler patient will need cardiac cath for further assessment and evaluation of her coronary arteries. Allergies: Coded Allergies: Penicillins (Severe, ANAPHYLAXIS 10/20/17) amoxicillin (Intermediate, ITCHY, SOB 10/18/17) ciprofloxacin (From CIPRO) (Intermediate, ITCHY, SOB 10/18/17) nitrofurantoin (From MACRODANTIN) (Intermediate, SOB 10/20/17) Significant Procedures: EXAMINATION: CT CHEST WITHOUT CONTRAST IMPRESSION: 1. Small pulmonary parenchymal nodules as well as nodular thickening along the inferior aspect of the anterior margin of the major fissure in the right lung as described in detail above 2. Central atelectasis involving a significant portion of the left lower lobe and a small portion of the left upper lobe, containing air bronchograms. This may represent compressive atelectasis from the moderate left-sided pleural effusion. 3. Cardiomegaly appears to be predominantly left ventriculomegaly. 4. Borderline mediastinal and axillary lymph nodes without sakina lymphadenopathy. 5. Hypoattenuating structure in the right lobe of liver likely represents a hepatic cyst. EXAM TYPE: CARD - ECHOCARDIOGRAM FINDINGS Left Ventricle Normal left ventricular size with moderate left ventricular hypertrophy. Mildly decreased systolic function with no obvious regional wall motion abnormalities. The ejection fraction is visually estimated at 45%. Right Ventricle The right ventricle is normal in size and function. Right Atrium The right atrium is normal in size. Left Atrium The left atrium is normal in size. The interatrial septum is intact. Mitral Valve The mitral valve is normal in structure and function. There is no mitral regurgitation. Aortic Valve Structurally normal aortic valve without significant sclerosis or stenosis. There is no aortic regurgitation. Tricuspid Valve The tricuspid valve is normal in structure and function. There is no tricuspid regurgitation. Pulmonic Valve Structurally normal pulmonic valve. There is no pulmonic regurgitation. Pericardium Normal pericardium without effusion. No pleural effusion. Great Vessels Normal aortic root dimension. The aortic arch and great vessels are well seen and are normal. CONCLUSIONS 1. Mildly decreased EF of 45%. 2. Moderate left ventricular hypertrophy. Pertinent Lab Results: Laboratory Tests 10/23/17 1230: APTT Cancelled 10/23/17 0535: Anion Gap 10, Estimated GFR > 60, BUN/Creatinine Ratio 22.2, APTT 107 *H, CBC w Diff NO MAN DIFF REQ, RBC 3.93 L, MCV 82.2, MCH 26.4 L, MCHC 32.1 L, RDW 17.8 H, MPV 9.4, Gran % 73.0, Lymphocytes % 14.4 L, Monocytes % 8.1, Eosinophils % 3.5, Basophils % 1.0, Absolute Granulocytes 4.0, Absolute Lymphocytes 0.8 L, Absolute Monocytes 0.4, Absolute Eosinophils 0.2, Absolute Basophils 0.1 10/22/17 2120: APTT 42 H 10/22/17 1335: APTT 56 H 10/22/17 0515: Anion Gap 10, Estimated GFR 57 L, BUN/Creatinine Ratio 22.0, Magnesium 1.8, TSH 96.900 H, APTT 56 H, CBC w Diff NO MAN DIFF REQ, RBC 4.02 L, MCV 82.0, MCH 26.1 L, MCHC 31.8 L, RDW 17.2 H, MPV 9.1, Gran % 74.6, Lymphocytes % 13.7 L, Monocytes % 7.5, Eosinophils % 3.2, Basophils % 1.0, Absolute Granulocytes 4.8, Absolute Lymphocytes 0.9 L, Absolute Monocytes 0.5, Absolute Eosinophils 0.2, Absolute Basophils 0.1 10/21/17 1639: APTT 61 H 10/21/17 0853: APTT 57 H 10/21/17 0427: Anion Gap 10, Estimated GFR 51 L, Glucose 76, Calcium 8.8, Phosphorus 4.4, Magnesium 1.7, Total Bilirubin 1.1, AST 10 L, ALT 19, Albumin 3.2 L, TSH 99.700 H, Free T4 0.73, CBC w Diff NO MAN DIFF REQ, RBC 3.90 L, MCV 82.0, MCH 26.5 L, MCHC 32.3 L, RDW 17.9 H, MPV 9.7, Gran % 78.3 H, Lymphocytes % 12.0 L, Monocytes % 6.8, Eosinophils % 1.2, Basophils % 1.7, Absolute Granulocytes 5.9, Absolute Lymphocytes 0.9 L, Absolute Monocytes 0.5, Absolute Eosinophils 0.1, Absolute Basophils 0.1 10/20/17 2104: APTT 68 H 10/20/17 1800: Anion Gap 7, Estimated GFR 39 L, Glucose 82, Calcium 8.5, Phosphorus 4.5, Magnesium 1.6, Total Bilirubin 1.0, AST 8 L, ALT 31, Albumin 3.2 L Disposition Summary Disposition Principal Diagnosis: - Acute hypoxic respiratory failure due to Acute Flash pulmonary edema - Hypertensive urgency - Elevated troponin type II [place]. - Hypothyroid - Congestive heart failure HrEF/Cardiomyopathy with ejection fraction 45% - Anemia history of antiphospholipid syndrome. - Acute renal insufficiency - Hyperlipidemia Additional Diagnosis: As above Discharge Disposition: other general hospital Discharge Instructions General Discharge Information Code Status: Full Code Patient's Diet: Heart healthy diet Patient's Activity: As tolerated Follow-Up Instructions/Appts: Please follow-up with your primary care doctor after discharge Please follow-up with the cultures after discharge. Please follow-up with associate director of nursing after discharge and obtain TSH/free T4 blood work. Please follow-up with gasket supervisor for further evaluation and assessment and follow-up. Medications at Discharge Discharge Medications: Stop taking the following medications: Ibuprofen (Advil) (Unknown Strength) CAPSULE ORAL as needed for PAIN/ INFLAMMATION Start taking the following new medications: Atorvastatin Calcium (Atorvastatin Calcium) 40 MG TABLET 40 Milligram ORAL 5 PM Days = 28 No Refills Comments: Last Taken: 10/23/17 Time: 5PM Aspirin (Aspirin*) 81 MG TAB.CHEW 81 Milligram ORAL DAILY Days = 30 No Refills Comments: Last Taken: 10/23/17 Time: 9AM Levothyroxine Sodium (Synthroid) 125 MCG TABLET 0.125 Milligram ORAL DAILY BEFORE BREAKFAST Days = 30 No Refills Comments: Last Taken: 10/24/17 Time: 6AM Heparin Sodium,Porcine/D5w (Heparin-D5w 25,000 Unit/500 Ml) 25,000 UNIT/500 ML ( 50 UNIT/ML) IV.SOLN 1 Bag INTRAVEN DAILY Days = 1 No Refills Comments: Last Taken: 10/24/17 Time: Pantoprazole Sodium (Protonix) 40 MG GRANPKT.DR 1 Tablet ORAL [id number] Days = 30 No Refills Comments: Last Taken: 10/24/17 Time: 9AM Copies To: Mendel YIP,Kylie; Shad YIP PHD,Berry rGey MD,Maksim
--- NOTE | 2017-10-23 13:44 | Patient Discharge Instructions ---
Discharge Instructions General Discharge Information Special Instructions: Please follow up with your pcp in 1 week. Please follow up with your manager editorial Dr. Kulkarni in 1 week. Please follow up with Dr. Grey for further pulmnology care. Please follow up with Dr. Oglesby (endocrinology) for further work up for your thyroid. Please continue your medications as perscribed. Acute Coronary Syndrome Inclusion Criteria At DC or during hospital stay patient has or had the following: ACS DIAGNOSIS Yes Discharge Core Measures Meds if any: Prescribed or Continued at Discharge Meds if any: NOT Prescribed or Continued at Discharge Congestive Heart Failure Inclusion Criteria At DC or during hospital stay patient has or had the following: CHF DIAGNOSIS No Discharge Core Measures Meds if any: Prescribed or Continued at Discharge Meds if any: NOT Prescribed or Continued at Discharge Cerebrovascular accident Inclusion Criteria At DC or during hospital stay patient has or had the following: CVA/TIA Diagnosis No Discharge Core Measures Meds if any: Prescribed or Continued at Discharge Meds if any: NOT Prescribed or Continued at Discharge Venous thromboembolism Inclusion Criteria VTE Diagnosis No VTE Type NONE VTE Confirmed by (Test) NONE Discharge Core Measures - Per Current guidelines, there needs to be overlap - treatment for the first 5 days of Warfarin therapy. - If discharged on Warfarin prior to 5 days of - overlap therapy, the patient will need to be - assessed for post discharge needs including - *Post discharge parental anticoagulation - *Warfarin and/or parental anticoagulation education - *Follow up date to check INR post discharge At least 5 days overlap therapy as Inpatient No Meds if any: Prescribed or Continued at Discharge Note: Overlap Therapy is Warfarin and Anticoagulant Meds if any: NOT Prescribed or Continued at Discharge
[2017-10-23 14:20] VITALS: BP 142/90
[2017-10-23] MEDS ORDERED: HEPARIN-D525000 UNI1 IV (14:25)
[2017-10-23] MEDS ORDERED: SYNTHROID125 MCG PO (14:25)
[2017-10-23] MEDS ORDERED: ASPIRIN81 M4 PO (14:25)
[2017-10-23] MEDS ORDERED: ATORVASTATIN CA40 M1 PO (14:25)
[2017-10-23] MEDS ORDERED: PROTONIX40 M4 PO (14:29)
--- NOTE | 2017-10-23 15:16 | PN- Pulmonary ---
Subjective HPI/Critical Care Issues: Patient seen and examined this morning she was transferred sure she is stable. Objective Current Medications: Current Medications Sig/Ye Start time Last Medication Dose Route Stop Time Status Admin Acetaminophen 1,000 MG Q8P PRN 10/18 2215 AC IV Aspirin 81 MG DAILY 10/22 1500 AC 10/23 PO 0846 Atorvastatin Calcium 40 MG 1700 10/22 2200 AC 10/22 PO 2353 Heparin Sodium 4,338 UNIT BOLUS ONE 10/22 2245 DC 10/22 (Porcine) IV 10/22 2246 2354 Heparin Sodium 2,200 UNIT ONCE ONE 10/22 1530 DC 10/22 (Porcine) IV 10/22 1531 1536 Heparin Sodium 5,000 UNIT .STK-MED ONE 10/22 1515 DC (Porcine) IV 10/22 1516 Heparin Sodium 25,000 UNIT Q24H 10/18 2130 AC 10/23 (Porcine) IV 0340 Sodium Chloride 500 ML Levothyroxine Sodium 0.125 MG DAILY AC 10/21 0911 AC 10/23 PO 0557 Magnesium Oxide 400 MG BID 10/21 1017 AC 10/23 PO 0845 Morphine Sulfate 2 MG Q4P PRN 10/18 2215 AC IV Pantoprazole Sodium 40 MG DAILY 10/19 0200 AC 10/23 IV 0845 Potassium Chloride 40 MEQ ONCE ONE 10/23 0500 DC 10/23 PO 10/23 0501 0557 Trimethobenzamide HCl 200 MG 4 TIMES/DAY PRN 10/19 0915 AC 10/19 IM 0931 Vital Signs & I&O Last 24 Hrs of Vitals and I&O: Vital Signs Date Time Temp Pulse Resp B/P B/P Pulse O2 O2 Flow FiO2 Mean Ox Delivery Rate 10/23 1420 99.0 82 18 142/90 96 Room Air 10/23 0558 98.6 64 18 150/90 97 Room Air 10/23 0000 Room Air 10/22 2315 99.4 74 18 158/90 97 Room Air 10/22 1815 Room Air 10/22 1805 98.9 78 20 122/80 95 Room Air 10/22 1600 Room Air 10/22 1600 98.8 60 20 130/82 97 Room Air Intake & Output 10/23 1600 10/23 0800 10/23 0000 Intake Total 650 90 Output Total 650 200 Balance 0 -110 Intake, IV 250 90 Intake, Oral 400 Output, Urine 650 200 Patient 171 lb Weight Exam Other Physical Findings: Generally - Awake, alert and comfortable without distress Head and neck - normocephalic, atraumatic, EOMI grossly intact Cardiovascular - S1, S2 Lungs -slightly reduced breath sounds at the bases Abdomen - Bowel sounds positive, soft, non-tender Extremities - without edema Results Last 24 Hrs of Lab Results: Laboratory Tests 10/23/17 1400: APTT Pending 10/23/17 1230: APTT Cancelled 10/23/17 0535: Anion Gap 10, Estimated GFR > 60, BUN/Creatinine Ratio 22.2, APTT 107 *H, CBC w Diff NO MAN DIFF REQ, RBC 3.93 L, MCV 82.2, MCH 26.4 L, MCHC 32.1 L, RDW 17.8 H, MPV 9.4, Gran % 73.0, Lymphocytes % 14.4 L, Monocytes % 8.1, Eosinophils % 3.5, Basophils % 1.0, Absolute Granulocytes 4.0, Absolute Lymphocytes 0.8 L, Absolute Monocytes 0.4, Absolute Eosinophils 0.2, Absolute Basophils 0.1 10/22/170: APTT 42 H Impression/Plan Impression/Plan Impression/Plan: Impression 57-year-old woman * decreasing troponins, htn * blunted costophrenic angles, possible atelectasis, vs infiltrate * tobacco dependence * pulmonary nodules Plan -f/u plan per cardiology and endocrinology -trc/nebs -ins/outs, lasix -smoking cessation counseling -would require outpatient PFTs -will refer for low dose lung cancer screening program as outpatient DVT prophylaxis at all times
[2017-10-23 15:19] LABS: PTT 45 SEC (25-37)
[2017-10-23 22:29] VITALS: BP 158/102
[2017-10-23 22:49] LABS: PTT 79 SEC (25-37)
--- NOTE | 2017-10-23 22:49 | PN- Cardiology ---
Subjective Subjective: * Breathing is much improved. No chest discomfort. * sinus rhythm * TSH is 96 Objective Vital Signs and I&Os Vital Signs Date Time Temp Pulse Resp B/P B/P Pulse O2 O2 Flow FiO2 Mean Ox Delivery Rate 10/23 2228 98.1 75 18 158/102 100 10/23 2200 Room Air 10/23 1420 99.0 82 18 142/90 96 Room Air 10/23 0558 98.6 64 18 150/90 97 Room Air 10/23 0000 Room Air 10/22 2315 99.4 74 18 158/90 97 Room Air Intake & Output 10/23 1600 10/23 0800 10/23 0000 10/22 1600 10/22 0800 10/22 0000 Intake Total 243 19 0284 308 600 Output Total 650 200 600 300 700 Balance 0 -110 786 8 -100 Intake, IV 250 90 186 208 Intake, Oral 400 1200 100 600 Number 0 Bowel Movements Output, Urine 650 200 600 300 700 Patient 171 lb Weight Physical Exam: General: WD/WN female in NAD; alert and oriented x 3 Neck: no JVD Heart: RRR Lungs: clear bilaterally Extremities: no edema Assessment/Plan Assessment/Plan * Doing much better with resolved renal insufficiency. * Follow Dr. Combs recommendations for diabetes and hypothyroidism. * Patient did rule in for an [place] and has some chest heaviness which may be related to bronchospasm but myocardial ischemia cannot be excluded. Will pursue a cardiac catheterization tomorrow. Keep NPO after midnight. Continue aspirin and begin a statin i.e. Lipitor 40mg daily. * Follow pulmonary recommendations for chest CT and PFT's Continue telemetry? Yes
[2017-10-24 00:18] VITALS: BP 122/80
[2017-10-24 07:18] VITALS: BP 172/92
--- NOTE | 2017-10-24 07:23 | PN- Housestaff ---
Subjective Follow-up For: Chen.fib E.coli bacteremia CAMPBELL on BiPAP Chest pain Tele-Events Since Last Visit: SB-NSR 59-67 Subjective: No acute events overnight. States her vision improved after the eye drops. Continues to have gum bleeding 2/2 to heparin + her teeth which recently got pulled. Review of Systems Constitutional: Reports: no symptoms. Hematologic/Endocrine: Reports: see HPI (bleeding merrill). Objective Last 24 Hrs of Vital Signs/I&O Vital Signs Date Time Temp Pulse Resp B/P B/P Pulse O2 O2 Flow FiO2 Mean Ox Delivery Rate 10/24 0800 Room Air 10/24 0718 98.4 86 18 172/92 97 Room Air 10/24 0018 122/80 10/23 2229 98.1 75 18 158/102 100 10/23 2200 Room Air 10/23 1420 99.0 82 18 142/90 96 Room Air Intake & Output 10/24 1600 10/24 0800 10/24 0000 Intake Total 306 756.8 Output Total Balance 306 756.8 Intake, IV 256 276.8 Intake, Oral 50 480 Number 0 1 Bowel Movements Physical Exam General Appearance: Alert, Oriented X3, Cooperative HEENT: poor dentition Cardiovascular: Regular Rate, Normal S1, Normal S2 Lungs: Normal Air Movement, diffuse crackles Abdomen: Normal Bowel Sounds, Soft, No Tenderness Extremities: no LE edema Vascular: no radial pulse due to hx of fracture + anatomi anomaly Current Medications: Current Medications Sig/Ye Start time Last Medication Dose Route Stop Time Status Admin Acetaminophen 1,000 MG Q8P PRN 10/18 2215 DCD IV Artificial Tears 2 GTT 4 TIMES/DAY 10/23 1545 DCD 10/24 OPH 0858 Aspirin 81 MG DAILY 10/22 1500 DC 10/23 PO 0846 Atorvastatin Calcium 40 MG 1700 10/22 2200 DCD 10/23 PO 1647 Heparin Sodium 2,325 UNIT 1541 10/23 1541 DC 10/23 (Porcine) IV 10/23 1542 1652 Heparin Sodium 5,000 UNIT .STK-MED ONE 10/23 1536 DC (Porcine) IV 10/23 1537 Heparin Sodium 25,000 UNIT Q24H 10/18 2130 DCD 10/23 (Porcine) IV 2153 Sodium Chloride 500 ML Levothyroxine Sodium 0.125 MG DAILY AC 10/21 0911 DCD 10/24 PO 0551 Magnesium Oxide 400 MG BID 10/21 1017 DCD 10/24 PO 0858 Morphine Sulfate 2 MG Q4P PRN 10/18 2215 DCD IV Pantoprazole Sodium 40 MG DAILY 10/19 0200 DCD 10/24 IV 0858 Trimethobenzamide HCl 200 MG 4 TIMES/DAY PRN 10/19 0915 DCD 10/19 IM 0931 Last 24 Hrs of Lab/Brian Results Last 24 Hrs of Labs/Mics: Laboratory Tests 10/24/17 0950: APTT 58 H 10/24/17 0624: Anion Gap 10, Estimated GFR > 60, BUN/Creatinine Ratio 20.0, CBC w Diff NO MAN DIFF REQ, RBC 4.01 L, MCV 82.1, MCH 26.9 L, MCHC 32.7 L, RDW 17.0 H, MPV 9.4 , Gran % 76.4 H, Lymphocytes % 11.0 L, Monocytes % 8.7, Eosinophils % 2.9, Basophils % 1.0, Absolute Granulocytes 5.0, Absolute Lymphocytes 0.7 L, Absolute Monocytes 0.6, Absolute Eosinophils 0.2, Absolute Basophils 0.1 10/23/17 2145: APTT 79 H 10/23/17 1400: APTT 45 H Assessment/Plan Assessment: Patient is a 57-year-old female with past medical history significant for hypertension not currently taking any medication, antiphospholipid antibody syndrome (not on anticoagulation or aspirin due to reported bleeding),psoriasis in remission (not on any immunosuppressant), inflammatory arthritis taking ibuprofen only, chronic interstitial cystitis, who has not seen a physician for the past 5 years presenting this admission with acute respiratory distress. Patient required intubation on arrival due to impending respiratory failure. Initially came in with acute hypertensive emergency with bp of 276/176. Patient was diuresed, received IV lopressor and nitroglycerin with an acute drop in her blood pressure. After which patient continued to have labile blood pressure with severe hypotension requiring IV pressor support. A central line was placed and patient was started on IV Kehinde-Synephrine. Patient's chest xray was concerning for pulmonary edema likely flash pulmonary edema secondary to hypertensive emergency. This may also be secondary to decompensated congestive heart failure as well with a pro-BNP of 16,000. Patient on exam had bilateral crackes however no JVD or lower extremity edema was appreciated. Patient's pulmonary edema may also be attributed to severe hypothyroidism and uncontrolled hypertension. Patient received IV lasix in the ED. Further diureses was held due to hypotension. P: Patient being transported to [facility] for cardiac cath. Currently holding aspirin. #Acute hypoxemic respiratory failure due to acute pulmonary edema - resolved Patient on 10/20 was weaned off the ventilator, blood gas was done and patient was extubated. Patient was transitioned to nasal cannula. Patient was mildly fluid positive and received 1 dose of IV lasix 40mg. - continue to monitor I/O - continue to monitor pulse ox - respiratory therapy is onboard - continue to wean off oxygen as tolerated # Persistent left lower lobe consolidation/atelectasis Patient's CXR shows a persistent consolidation and/or atelectasis. Patient has a signficant smoking history and there is concern for possible lung cancer. Also due to patient's signficant smoking history she would benefit from further evaluation with PFTs outpatient and follow up with an outpatient medication specialist. Repeat ct chest: 1. Small pulmonary parenchymal nodules as well as nodular thickening along the inferior aspect of the anterior margin of the major fissure in the right lung as described in detail above 2. Central atelectasis involving a significant portion of the left lower lobe and a small portion of the left upper lobe, containing air bronchograms. This may represent compressive atelectasis from the moderate left-sided pleural effusion. 3. Cardiomegaly appears to be predominantly left ventriculomegaly. 4. Borderline mediastinal and axillary lymph nodes without sakina lymphadenopathy. 5. Hypoattenuating structure in the right lobe of liver likely represents a hepatic cyst. - smoking cessation counseling- please provide with materials at discharge - outpatient pulmonary follow up with PFTs - [facility]bs - low dose lung cancer screening program as outpatient per pulm #Leukocytosis- resolved Likely reactive secondary to steroids. Patient remains afebrile without complaints. - will watch off antibiotics - continue to monitor vitals #Asymptomatic bacteuria Patient is growing gram negative rods in urine. Patient has not had any urinary symptoms prior to admission. However patient has a history of chronic interstitial cystitis and has previously had recurrent infections requiring antibiotics. Urine culture growing pansensitive e.coli however patient remains asymptomatic after peres removal. - As patient remains asymptomatic after peres removal, will continue to watch off antibiotics at this time #Congestive heart failure Echo is showing left ventricular ejection fraction of 45% with moderate ventricular hypertrophy - Continue to monitor stricts I/O - Patient has received diuresis with resolution of pulmonary edema seen on CXR. Further diuresis per cardiology recommendations. - Cardiology is on board - Consider adding lisinopril # CA type 1 vs type II Patient had elevated ST segments in leads V1, V2, V3 with recepirocal depression in inferior and lateral leads. Repeat EKG showed improvement. Patient's troponin peaked to 0.51 and decreased. Patient was seen by cardiology and started on IV heparin drip along with aspirin. Patient denies chest pain at this time. Echocardiogram shows LVEF of 45% with no obvious wall motion abnormalities. Likely demand ischemia secondary to initial hypertensive crisis and pulmonary edema followed by hypotension. There is concern in this patient however due to her significant smoking history, antiphospholipid antibody syndrome, hypthyroidism, hyperlipidemia and uncontrolled hypertension that she is at high risk of myocardial infarction. Further cardiac catheterization vs risk startification with a stress test per cardiology, however I think she would benefit from directly going to cath as patient's KATE score gives a 13% risk of 14 days of all cause mortality, new or recurrent CA or severe recurrent ischemia requiring urgent revascularization. - Patient will be NPO for cardiac cath @ [facility] today - continue IV heparin - continue aspirin daily - continue morphine as needed #Hypertensive emergency Patient is now normotensive. - Continue to monitor BP - Continue to monitor creatinine - Continue telemetry monitoring #Hyperlipidemia: Patient's lipid levels this admission were elevated. Patient's ASCVD score predicts she has a 10% of a 10 year risk of heart disease or stroke. Patient should be started on a moderate to high intesnity statin. -cont atorvastatin 40mg daily #Anti-phospholipid antibody syndrome Patient has a history of miscarriages. Patient reports that she was on aspirin prior however stopped it by herself. Patient is at high risk of clotting. - Continue IV heparin and aspirin - will most likely require lifelong anticoagulation upon discharge #Hypothyroidism Patient had elevated thyroid stimulating hormone of >300. Patient reports a remote history of thyroid dysfunction in the past. It is unclear if she was previously diagnosed with hypothyroidism in the past. Patient's thyroid antibodies were positive. Likely patient has hashimotos. Patient is symptomatic with fatigue, weakness, cold intolerance, hair loss and likely cardiac dysfunction. Patient's repeat TSH today was elevated and T4 was slightly decreased from previous day. Thus far patient has received IV Synthroid 100 g continue levothyroxine 62.5 g IV daily as the distribution of thyroid hormone will take some time. Therefore it is not necessary to increase her dose further at this time. Patient's TSH continues to remain elevated however is declining. - Continue levothyroxine 125 mcg PO daily - Repeat TFTs in 1-[address] Oglesby - Patient will require an outpatient thyroid ultrasound - Endocrinology is onboard. Appreciate recommendations. #extubation Patient was extubated on 10/20. Patient to continue consistent carbohydrate 1 diet with sodium restriction #SHIV - Resolved. Likely prerenal in the setting of hypotension and congestive heart failure. - avoid nephrotoxic agents - continue to monitor creatinine daily - continue to monitor I/O #DVT prophylaxis - IV heparin #FULL CODE Problem List: 1. Pulmonary edema 2. Cardiomyopathy 3. Antiphospholipid antibody syndrome 4. Hypothyroidism 5. Myocardial infarction 6. SHIV (acute kidney injury) Pain Ratin Pain Location: none Pain Goal: Pain 4 or less Pain Plan: pain pathway Tomorrow's Labs & Rationales: none Consulting Request: Consulting Specialty: Critical Care
[2017-10-24 08:03] LABS: ABSOLUTE BASOPHIL COUNT 0.1 /CUMM (0.0-0.2); ABSOLUTE EOSINOPHIL COUNT 0.2 /CUMM (0.0-0.7); ABSOLUTE LYMPH COUNT 0.7 /CUMM (1.2-3.4); ABSOLUTE MONOCYTE COUNT 0.6 /CUMM (0.10-0.60); EOSINOPHIL % 2.9 % (0-5); GRANULOCYTE % 76.4 % (42.2-75.2); HEMATOCRIT 32.9 % (37-47); MEAN CORPUSCULAR HGB 26.9 PG (27.0-31.0); MEAN CORPUSCULAR HGB CONC 32.7 G/DL (33.0-37.0); MEAN CORPUSCULAR VOLUME 82.1 FL (81.0-99.0); MEAN PLATELET VOLUME 9.4 FL (7.4-10.4); PLATELET COUNT 183 /CUMM (130-400); RED BLOOD CELL CT 4.01 /CUMM (4.20-5.40); WHITE BLOOD CELL COUNT 6.5 /CUMM (4.8-10.8)
--- NOTE | 2017-10-24 10:48 | PN- Pulmonary ---
See Addendum Subjective HPI/Critical Care Issues: pt seen and examined took a break from bipap still with anxiety/dyspnea phlegm reduced Objective Current Medications: Current Medications Sig/Ye Start time Last Medication Dose Route Stop Time Status Admin Acetaminophen 1,000 MG Q8P PRN 10/18 2214 AC IV Artificial Tears 2 GTT 4 TIMES/DAY 10/23 1545 AC 10/24 OPH 0858 Aspirin 81 MG DAILY 10/22 1500 DC 10/23 PO 0846 Atorvastatin Calcium 40 MG 1700 10/22 2200 AC 10/23 PO 1647 Heparin Sodium 2,325 UNIT 1541 10/23 1541 DC 10/23 (Porcine) IV 10/23 1542 1652 Heparin Sodium 5,000 UNIT .STK-MED ONE 10/23 1536 DC (Porcine) IV 10/23 1537 Heparin Sodium 25,000 UNIT Q24H 10/18 213 10/23 (Porcine) IV 2153 Sodium Chloride 500 ML Levothyroxine Sodium 0.125 MG DAILY AC 10/21 0911 10/24 PO 0551 Magnesium Oxide 400 MG BID 10/21 1017 10/24 PO 0858 Morphine Sulfate 2 MG Q4P PRN 10/18 2214 IV Pantoprazole Sodium 40 MG DAILY 10/19 0200 10/24 IV 0858 Trimethobenzamide HCl 200 MG 4 TIMES/DAY PRN 10/19 0915 10/19 IM 0931 Vital Signs & I&O Last 24 Hrs of Vitals and I&O: Vital Signs Date Time Temp Pulse Resp B/P B/P Pulse O2 O2 Flow FiO2 Mean Ox Delivery Rate 10/24 0800 Room Air 10/24 0718 98.4 86 18 172/92 97 Room Air 10/24 0018 122/80 10/239 98.1 75 18 158/102 100 10/23 2200 Room Air 10/23 1420 99.0 82 18 142/90 96 Room Air Intake & Output 10/24 1600 10/24 0800 10/24 0000 Intake Total 306 756.8 Output Total Balance 306 756.8 Intake, IV 256 276.8 Intake, Oral 50 480 Number 0 1 Bowel Movements Exam Other Physical Findings: Generally - Awake, alert and comfortable without distress Head and neck - normocephalic, atraumatic, EOMI grossly intact Cardiovascular - S1, S2 Lungs -slightly reduced breath sounds at the bases Abdomen - Bowel sounds positive, soft, non-tender Extremities - without edema Results Last 24 Hrs of Lab Results: Laboratory Tests 10/24/17 0950: APTT Pending 10/24/17 0624: Anion Gap 10, Estimated GFR > 60, BUN/Creatinine Ratio 20.0, CBC w Diff NO MAN DIFF REQ, RBC 4.01 L, MCV 82.1, MCH 26.9 L, MCHC 32.7 L, RDW 17.0 H, MPV 9.4 , Gran % 76.4 H, Lymphocytes % 11.0 L, Monocytes % 8.7, Eosinophils % 2.9, Basophils % 1.0, Absolute Granulocytes 5.0, Absolute Lymphocytes 0.7 L, Absolute Monocytes 0.6, Absolute Eosinophils 0.2, Absolute Basophils 0.1 10/23/17 2145: APTT 79 H 10/23/17 1400: APTT 45 H 10/23/17 1230: APTT Cancelled Impression/Plan Impression/Plan Impression/Plan: Impression 57-year-old woman * decreasing troponins, htn * blunted costophrenic angles, possible atelectasis, vs infiltrate * tobacco dependence * pulmonary nodules Plan -smoking cessation counseling -would require outpatient PFTs -will refer for low dose lung cancer screening program as outpatient - my information submitted to patient, please ensure she has follow up with myself or a endoscopic technician of her choice DVT prophylaxis at all times
[2017-10-24 10:51] LABS: PTT 58 SEC (25-37)
== END 2017-10-24 12:11 | disposition short-term general hospital (02) | DRG 208 ==
LOC: ERH 19:43 → ERHI 21:05 → CRI 21:05 → ENRESERV 22:00 → CRI 23:32 → ENTRNSPT 10-22 17:25 → EDTRNSPTSTS 10-22 17:30 → EDTRNSPT 10-22 17:30 → CMPTRNSPT 10-22 17:47 → 1NO 10-22 17:58 → ENPENDDIS 10-24 10:58 → 1NO 10-24 12:11
PROVIDERS: Emergency Medicine; Internal Medicine; Internal Medicine Critical Care Medicine; Internal Medicine Hematology & Oncology; Internal Medicine Interventional Cardiology; Student in an Organized Health Care Education/Training Program
PROC: 02HV33Z Insertion of Infusion Device into Superior Vena Cava, Percutaneous Approach (ICD-10-PCS; principal; 2017-10-18)
PROC: 5A1945Z Respiratory Ventilation, 24-96 Consecutive Hours (ICD-10-PCS; 2017-10-18)
PROC: B548ZZA Ultrasonography of Superior Vena Cava, Guidance (ICD-10-PCS; 2017-10-18)
PROC: 0BH17EZ Insertion of Endotracheal Airway into Trachea, Via Natural or Artificial Opening (ICD-10-PCS; 2017-10-18)
DX: J96.01 Acute respiratory failure with hypoxia (principal); I21.A1 Myocardial infarction type 2; J15.5 Pneumonia due to Escherichia coli; N17.9 Acute kidney failure, unspecified; J81.1 Chronic pulmonary edema; D68.61 Antiphospholipid syndrome; I95.9 Hypotension, unspecified; I13.0 Hypertensive heart and chronic kidney disease with heart failure and stage 1 through stage 4 chronic kidney disease, or unspecified chronic kidney disease; I50.22 Chronic systolic (congestive) heart failure; I16.1 Hypertensive emergency; D72.829 Elevated white blood cell count, unspecified; F17.210 Nicotine dependence, cigarettes, uncomplicated; Z88.1 Allergy status to other antibiotic agents; Z88.0 Allergy status to penicillin; Z82.49 Family history of ischemic heart disease and other diseases of the circulatory system; E03.9 Hypothyroidism, unspecified; Z90.710 Acquired absence of both cervix and uterus; L40.9 Psoriasis, unspecified; R00.0 Tachycardia, unspecified; R00.1 Bradycardia, unspecified; E87.6 Hypokalemia; E78.5 Hyperlipidemia, unspecified
CPT/HCPCS: 1NSP; CCU; 36415; 36592; 71045; 80307; 81001; 82436; 86376; 86800; 87040; 87070; 87086; 93005; 93010; 93306; 94799; 96374; 96375; 97116-GO; 97161-GP; 99291; G0480; J1644; J1940; J3010; J3250; J3490; J7040; J7042